=== PATIENT | female | born 1985 | race Caucasian/White ===

== ENCOUNTER 2023-06-14 16:27 | Inpatient (IN) | payer BC, SELFPAY ==
[2023-06-14] VITALS (14 sets, daily range): BP systolic 130–181; BP diastolic 73–132; BMI 21.0; BMI 20.3
[2023-06-14 12:58] LABS: Glucose - Point of Care 253 mg/dl (70-99)
--- NOTE | 2023-06-14 13:49 | ED.GENMED ---
History of Present Illness
General
Chief Complaint: Blood Sugar Problem
Source: patient
Exam Limitations: none
Time Seen by Provider: 06/14/23 13:40
Nursing documentation reviewed up to this point in time: agreed with
Travel History
Have you had any contact with someone who has COVID-19?: No
Do you have any symptoms of coronavirus? Fever > 100 degrees, chills, cough, shortness of breath, sore throat, loss of taste or smell, muscle aches, or headache?: No
History of Present Illness
History of Present Illness:
37-year-old female with a past medical history as documented notable for insulin-dependent diabetes with insulin pump who presents to the emergency room for evaluation of abdominal pain with nausea and vomiting�she says similar prior bouts of DKA.
She says the patient has been feeling unwell since early this morning. She says that she has been having profuse vomiting and constant nausea/epigastric discomfort. She says that the symptoms are similar to prior episodes of DKA; she says that her
blood sugars have been running high today�as high as 340 at home despite well-functioning insulin pump. She says she has associated shortness of breath. Denies any chest pain. She denies any diarrhea. She denies any recent fevers or chills. She
does note that her daughter has been sick recently with a viral syndrome.
Past History
Past History
ED Past Medical History: HTN, IDDM and Other (folate def., macrocytic anemia, hepatic steatosis)
ED Past Surgical History: Gynecological
Patient has exhibited threatening behavior?: No
PSI?: No
Social History
Tobacco: Non-smoker
Alcohol: Other (sober for two weeks)
Drug: None
Review of Systems
Review of Systems
All Other Systems: ROS reviewed and negative except as documented in HPI and ROS
Constitutional: Reports fatigue; Denies fever or chills
EENT: Denies sore throat or runny nose
Respiratory: Reports trouble breathing; Denies cough
Cardiac: Denies chest pain, diaphoresis or palpitations
ABD/GI: Reports abdominal pain, nausea and vomiting; Denies diarrhea
: Denies dysuria, frequency, flank pain or bleeding
Musculoskeletal: Denies neck pain or back pain
Neurological: Reports headache; Denies weakness or numbness
Phy Exam
Physical Exam
Physical Exam:
General: Awake, alert, oriented x3; no acute distress
Head: Normocephalic, atraumatic
Eyes: Conjunctiva normal, EOMI
Throat: Airway intact, mucous membranes dry
Neck: Trachea midline, supple without meningismus
Lungs: Clear to auscultation bilaterally, no wheezing, rales, rhonchi
Heart: Tachycardia with ostensibly regular rhythm, no murmurs, gallops, or rubs appreciated
Abd: Soft, non distended, very mild epigastric discomfort with no peritoneal signs or masses
Neuro: Cranial nerves grossly intact, speech fluid
Skin: no rash
Extremities: No edema in extremities, equal pulses in all extremities
Scores
Heart Failure Risk
Heart Failure Risk Score: Not Applicable
Heart Score for Chest Pain Patients
STEMI patient?: Not applicable
Withdrawal Assessment of Alcohol
Withdrawal Assessment Completed?: Not applicable
Course
Orders/Labs/Results
Orders:
Orders
06/14/23 12:56
EKG [Electrocardiogram (*1)] Urgent
Reason for Study: Shortness of Breath
EKG- Treatment ONCE
06/14/23 13:40
Test Result ONCE
06/14/23 13:41
Urinalysis Reflex To Culture Urgent
0.9% Sodium Chloride 1000 ml [Nss] 1,000 ml IV BOLUS
06/14/23 13:58
Lorazepam [Ativan] 1 mg IV NOW STA
06/14/23 13:59
0.9% Sodium Chloride 1000 ml [Nss] 1,000 ml IV BOLUS
06/14/23 14:05
Acetone [B-Hydroxybutyrate] Urgent
COVID-19 Antigen Urgent
Source: Nasal Swab
Complete Blood Count/With Diff Urgent
Comprehensive Metabolic Panel Urgent
HCG, Serum Qualitative Screen Urgent
Lipase Urgent
Magnesium Urgent
Venous Blood Gas Urgent
%Oxygen/Room Air: 100
Influenza A+B Rapid Molecular Urgent
ANGELA Source: Nasal Swab
Specimen Description:
06/14/23 14:51
0.9% Sodium Chloride 1000 ml [Nss] 1,000 ml IV BOLUS
Potassium Chloride [KCl] 40 meq 0.9% Sodium Chloride 250 ml [Nss] 250 ml IV NOW
Reg Insulin 100 Units/100 ml [Novolin R Insulin Infusion] 100 units in 100 ml IV NOW
06/14/23 14:52
Bedside Glucose- Treatment Q1H
IV Insert/Care/Rem.- Treatment PRN
06/14/23 14:57
Ethylene Glycol [S] Urgent
Methyl Alcohol (Methanol) [S] Urgent
06/14/23 14:58
Alcohol Urgent
Basic Metabolic Panel Q2H
Lactate Level [Lactic Acid] Urgent
Salicylate Urgent
TSH Reflex To Free T4 Urgent
06/14/23 15:00
Blood Culture Q30M
ANGELA Source: Blood/Venous
Specimen Description:
06/14/23 15:30
Blood Culture Q30M
ANGELA Source: Blood/Venous
Specimen Description:
06/14/23 16:00
KCl 20 Meq/D5.45%Sodchl 1000ML [D5/0.45%NSS with KCL 20 MEQ] 20 meq in 1,000 ml IV 125 mls/hr
06/14/23 17:00
Basic Metabolic Panel Q2H
06/14/23 19:00
Basic Metabolic Panel Q2H
Abnormal Lab Results
06/14/23 06/14/23
12:56 14:05
WBC 14.1 H 10^3/uL
(4.8-10.8)
RBC 5.60 H 10^6/uL
(4.20-5.40)
Hgb 16.9 H g/dL
(12.0-16.0)
Hct 49.8 H %
(37.0-47.0)
RDW 14.6 H %
(11.5-14.5)
Abs Immat Gran (auto) 0.1 H 10^3/uL
(0-0.05)
Absolute Neuts (auto) 12.2 H 10^3/uL
(1.4-6.5)
Absolute Lymphs (auto) 0.7 L 10^3/uL
(1.2-3.4)
Absolute Monos (auto) 1.1 H 10^3/uL
(0.1-0.6)
Neutrophils % 86.6 H %
(42.2-75.2)
Lymphocytes % 5.0 L %
(20.5-51.1)
VBG pCO2 32 L mmHg
(35-48)
VBG HCO3 17.3 L mmol/L
(22-27)
Sodium 134 L mmol/L
(135-145)
Chloride 90 L mmol/L
(98-107)
Carbon Dioxide 13 L* mmol/L
(22-30)
BUN 25 H mg/dl
(7-17)
Creatinine 1.7 H mg/dL
(0.6-1.0)
Glucose 217 H mg/dl
(70-99)
Calcium 11.6 H mg/dl
(8.4-10.2)
Total Bilirubin 1.4 H mg/dl
(0.2-1.3)
Alkaline Phosphatase 154 H U/L
(38-126)
Total Protein 9.3 H g/dl
(6.3-8.2)
Albumin 5.8 H g/dl
(3.5-5.0)
POC Glucose 253 H mg/dl
(70-99)
06/14/23 14:05
Vital Signs
Initial and Last Documented VS:
Initial Vital Signs
Temp Pulse Resp BP Pulse Ox
36.8 C 155 18 135/110 100
06/14/23 12:57 06/14/23 12:57 06/14/23 12:57 06/14/23 12:57 06/14/23 12:57
Last Documented Vital Signs
Temp Pulse Resp BP Pulse Ox
36.8 C 155 18 135/110 100
06/14/23 12:57 06/14/23 12:57 06/14/23 12:57 06/14/23 12:57 06/14/23 13:25
MDM/Problems Addressed
Differential Diagnosis Includes:
Gastroenteritis, gastritis, pancreatitis, cholelithiasis, cholecystitis, DKA
MDM/Problems Addressed:
37-year-old female presents for evaluation of epigastric discomfort associate with profuse nausea and vomiting today and elevated blood glucose at home that she is concerned for DKA as she has had similar symptoms with DKA in the past. She is
hypertensive, tachycardic; vital signs otherwise normal. Notably despite her reported dyspnea she fortunately has normal respiratory rate, normal oxygen saturation, normal work of breathing and clear lungs bilaterally. Exam as above. Accu-Chek [address] an IV send labs including CBC and CMP, lipase. Will check an hCG. Check VBG and beta hydroxybutyrate. Will check viral swabs. Check an EKG. Hold on abdominal imaging right now she has very minimal tenderness. Will provide
IV fluids and antiemetic. Monitor closely reassess after the above.
EKG reviewed patient has sinus tachycardia has prolonged QT interval at 550 will avoid QT prolonging agents here.
Labs reviewed: CBC shows leukocytosis to 14.1, elevated hemoglobin level suspect likely related to hemoconcentration. Her CMP shows anion gap metabolic acidosis with bicarb of 13 and anion gap of 31. Blood glucose only 217. VBG shows pH of 7.34.
Added on salicylate level, toxic alcohol levels, lactate level but given her identical presentation in December attributed to euglycemic DKA will plan to treat with insulin infusion; will supplement potassium and provide dextrose containing fluids.
Discussed with endocrinology who agrees with this plan. Discussed with hospitalist for admission for continued management.
Chronic conditions affecting care:
Insulin-dependent diabetes
Acute Exacerbation and/or Progression of Chronic Illness:
Acutely hypertensive
Acutely hyperglycemic in the setting of known diabetes
Acute Exacerbation and/or Progression of Chronic Illness: DM and HTN
*Pulse Oximetry
Patient hypoxic: no
*EKG
Interpreted by ED Provider?: Yes
Heart Rate: 147
Rate: tachycardiac
Rhythm: sinus and sinus tachycardia
Sevier: left axis deviation
Interval: long QT
QRS Pattern: normal QRS
Ischemia: non-specific ST changes
*Critical Care Note
Total Time (30-74mins, 75-104mins- exclusive of procedures): 33
comment:
Critical care statement: A total of 33 minutes of critical care time was provided for this patient. This includes management of unstable vital signs, evaluation of the patient at bedside, frequent reassessment, discussion with
consultants/hospitalist, and review of pertinent medical records. This time was separate from time utilized to perform any aforementioned documented procedures.
Data Reviewed
Review of Other/Old Records Reveals: Labs, Records and Discharge Summary
Source: patient
Further Testing Considered But Not Given:
Considered CT of the abdomen pelvis
Patient Management
Discussion with other providers: Hospitalist (Discussed with hospitalist) and Reference Assistant (Discussed with endocrinology)
Escalation/DeEscalation of care consider admission/obs:
Admission indicated
ED Attending Note
-
Portions of this chart may have been created with voice recognition software.� Occasional wrong word or��sound alike� substitutions may have occurred due to the inherent limitations of voice recognition software.
Discharge Plan
Departure
Patient Disposition: Admit
Date of Disposition: 06/14/23
Time of Disposition: 15:10
Admit to doctor: Mika
Presentation/result/management discussed w/ accepting MD/DO: Hospitalist
Discharge Problem:
Metabolic acidosis, increased anion gap, Hyperglycemia
Prescriptions:
No Action
folic acid 1 mg tablet
1 mg PO HS
Insulin Pump
1 dose SC .VIA PUMP
Patient Comments:
Pt uses Humalog 100unit/ml via pump
sertraline 100 mg tablet
100 mg PO HS
trazodone 100 mg tablet
200 mg PO HS
dextroamphetamine-amphetamine 15 mg tablet
15 mg PO BIDPRN PRN (Reason: work day attention)
Patient Comments:
01/17/2023: last filled 01/01/23, 60 tabs for 30 days from [facility]#[id number]
gabapentin 300 mg capsule
600 mg PO HS
spironolactone 50 mg tablet
100 mg PO HS
levothyroxine 50 mcg tablet
50 mcg PO HS
atorvastatin 10 mg Tablet
10 mg PO DAILY
pantoprazole 40 mg tablet,delayed release (DR/EC)
40 mg PO BID Qty: 60 1RF
nifedipine [Procardia XL] 30 mg tablet extended release 24hr
30 mg PO DAILY Qty: 30 0RF
Interventions
Interventions:
*Risk Screen - Suicide Last Done: 06/14/23 12:57
*General Assessment Last Done: 06/14/23 12:57
*Neglect/Abuse Screening Last Done: 06/14/23 12:57
ED- Fall Risk Assessment Last Done: 06/14/23 13:25
*ED COVID-19 Vaccine History Last Done: 06/14/23 12:57
ED- Neurological Assessment Last Done: 06/14/23 13:25
[2023-06-14] MEDS: NSS 1000 IV ×2 (13:57→14:35)
[2023-06-14 14:15] LABS: Venous Blood Gas B.E. -7.1 mmol/L (-4 to +4); Venous Blood Gas HCO3 17.3 mmol/L (22-27); Venous Blood Gas O2 Sat % 72.8 %; Venous Blood Gas pCO2 32 mmHg (35-48); Venous Blood Gas pH 7.34 (7.32-7.43); Venous Blood Gas pO2 43 mmHg (30-50)
[2023-06-14 14:16] LABS: % Basophils 0.3 % (0-2); % Immature Granulocytes 0.4 % (0-0.5); % Monocytes 7.7 % (1.7-9.3); % Neutrophils 86.6 % (42.2-75.2); Absolute Immature Granulocytes 0.1 10^3/uL (0-0.05); Absolute Lymphocytes 0.7 10^3/uL (1.2-3.4); Absolute Monocytes 1.1 10^3/uL (0.1-0.6); Absolute Neutrophils 12.2 10^3/uL (1.4-6.5); Hematocrit 49.8 % (37.0-47.0); Hemoglobin 16.9 g/dL (12.0-16.0); Mean Corp Hgb Conc. 33.9 g/dL (33.0-37.0); Mean Corpuscular Hgb 30.2 pg (27.0-31.0); Mean Corpuscular Volume 88.9 fL (81.0-99.0); Mean Platelet Volume 9.5 fL (7.4-10.4); Nucleated Red Blood Cells % 0 %; Platelet Count 223 10^3/uL (130-400); Red Cell Dist. Width 14.6 % (11.5-14.5); White Blood Cell Count 14.1 10^3/uL (4.8-10.8)
[2023-06-14 14:27] LABS: HCG, Serum Qualitative Screen Negative
[2023-06-14 14:32] LABS: COVID-19 Antigen Negative (Negative)
[2023-06-14] MEDS: ATIVAN 1 MG IV (14:33)
[2023-06-14 14:39] LABS: ALT (SGPT) 22 U/L (0-35); AST (SGOT) 34 U/L (14-36); Albumin 5.8 g/dl (3.5-5.0); Alkaline Phosphatase 154 U/L (38-126); Blood Urea Nitrogen 25 mg/dl (7-17); Calcium 11.6 mg/dl (8.4-10.2); Carbon Dioxide 13 mmol/L (22-30); Chloride 90 mmol/L (98-107); Glucose 217 mg/dl (70-99); Lipase 281 U/L (23-300); Potassium 3.7 mmol/L (3.5-5.1); Sodium 134 mmol/L (135-145); Total Bilirubin 1.4 mg/dl (0.2-1.3); Total Protein 9.3 g/dl (6.3-8.2); eGFR 39.86
[2023-06-14] MEDS: D5/0.45%NSS with KCL 20 MEQ 1000 IV (15:32)
[2023-06-14] MEDS: NOVOLIN R INSULIN INFUSION 100 IV (15:52)
[2023-06-14 16:01] LABS: Glucose - Point of Care 171 mg/dl (70-99)
[2023-06-14 16:03] LABS: Lactic Acid 1.2 mmol/L (0.7-2.0)
[2023-06-14 16:08] LABS: Blood Urea Nitrogen 25 mg/dl (7-17); Calcium 11.5 mg/dl (8.4-10.2); Carbon Dioxide 13 mmol/L (22-30); Chloride 91 mmol/L (98-107); Estimated Creatinine Clearance 54 ml/min; Glucose 178 mg/dl (70-99); Salicylate < 1.0 mg/dl (2.0-20.0); Sodium 137 mmol/L (135-145); eGFR 50.32
[2023-06-14 16:09] LABS: Alcohol None Detected
--- NOTE | 2023-06-14 16:30 | HPS.HSE ---
Family Physician
-
Family Physician: CITLALI Gomez
Chief Complaint
-
DKA
History of Present Illness
Patient is a 37-year-old female with type 1 diabetes mellitus who has insulin pump who presented with complaints of 'I think I am in DKA'. Patient states that her usual triggers from her daughter is when her daughter gets sick, the patient gets
sick. Patient complains of nausea, vomiting, headache, inability to sleep, lethargy, and shortness of breath. She also is complaining of chest and throat pain which she describes as it being from vomiting. Workup in the emergency department finds
her to have an increased anion gap with metabolic acidosis but essentially normal blood sugar. Patient is being admitted to the intensive care unit.
Medical History
Past Medical History
Past Medical History: Reports Other
Additional Past Medical History:
Type 1 diabetes mellitus with insulin pump
Essential hypertension
Peripheral neuropathy
Hyperlipidemia
Chronic diastolic congestive heart failure
Hepatic steatosis with early cirrhosis
Previous history of alcohol disorder
Hypothyroidism
History of connective tissue disorder
Gastroesophageal reflux disease
Depression
Past Surgical History: Reports Other
Additional Past Surgical History:
Right femur neck fracture status post gamma nail approximately 2022
Social History
Tobacco: Non-smoker
Alcohol: Occasional
Drug: None
Living: With Family
Family History
Family History: Other (Mother has autoimmune disorder--father has A-fib)
Allergies / Home Medications
Allergies reflects when Allergies were last updated in [employer].
Home Medications with original date entered in [employer]
Allergy/Medication List:
Allergies
Allergy/AdvReac Type Severity Reaction Status Date / Time
No Known Allergies Allergy Verified 01/17/23 13:30
Home Medications
folic acid 1 mg tablet 1 mg PO HS Supplement 04/06/22
dextroamphetamine-amphetamine 15 mg tablet 15 mg PO TIDPRN PRN work day attention 01/17/23
gabapentin 300 mg capsule 300 mg PO TID Pain 01/17/23
levothyroxine 50 mcg tablet 50 mcg PO HS Thyroid 01/17/23
sertraline 100 mg tablet 100 mg PO HS Thyroid 01/17/23
spironolactone 50 mg tablet 50 mg PO BID Thyroid 01/17/23
atorvastatin 10 mg tablet 10 mg PO HS High Cholesterol 01/20/23
Patient's Own Insulin 0 unit SC .VIA PUMP 06/14/23
clonidine HCl 0.2 mg tablet 0.2 mg PO HS 06/14/23
gabapentin 100 mg capsule 200 mg PO HS 06/14/23
melatonin 10 mg tablet 10 mg PO HS 06/14/23
pantoprazole 40 mg tablet,delayed release 40 mg PO DAILYPRN PRN gerd 06/14/23
Review of Systems
-
History Source: Patient
A 12 point ROS was completed and negative except as noted: Yes
Constitutional: Reports Sleep Disturbance; Denies Fever or Chills
EENT: Reports Sore Throat
Respiratory: Reports Trouble Breathing
Cardiac: Reports Chest Pain
Abdomen/GI: Reports Nausea and Vomiting; Denies Abdominal Pain, Diarrhea or Constipated
: Denies Dysuria or Frequency
Musculoskeletal: Reports No Symptoms
Skin: Reports No Symptoms
Neurological: Reports No Symptoms
Endocrine: Reports No Symptoms
Hematologic/Lymphatic: Reports No Symptoms
Psych: Reports No Symptoms
Physical Exam
Vital Signs
Vital Signs
Temp Pulse Resp BP Pulse Ox
98.2 F 128 19 161/132 100
06/14/23 12:57 06/14/23 16:00 06/14/23 16:00 06/14/23 16:00 06/14/23 16:00
Physical Exam
General: Well Developed, Well Nourished and No Apparent Distress
HEENT: NormoCephalic, Anicteric, Atraumatic and Other (Flushed cheeks)
Respiratory: Clear; No Wheezes, Rales, Rhonchi or Crackles
Cardiac: S1/S2, Regular Rhythm and Tachycardia; No Murmur
GI: Soft, Non Tender, Non Distended and Normal Bowel Sounds
Musculoskeletal: No Clubbing, No Cyanosis and No Edema
Skin: Warm and Dry
Neuro: Awake and Alert
Psych: Calm
Laboratory Results
-
06/14/23 14:05
Laboratory Results
Lactic Acid 1.2 mmol/L (0.7-2.0) 06/14/23 15:18
Total Bilirubin 1.4 mg/dl (0.2-1.3) H 06/14/23 14:05
AST 34 U/L (14-36) 06/14/23 14:05
ALT 22 U/L (0-35) 06/14/23 14:05
Alkaline Phosphatase 154 U/L (38-126) H 06/14/23 14:05
Lipase 281 U/L (23-300) 06/14/23 14:05
Impression/Plan
-
pt is a 37 year old female
metabolic acidosis -- likely DKA--beta hydroxybutyrate pending--ADMIT to ICU--consult deli worker--will need insulin drip and IV fluids with dextrose--follow-up potassium and magnesium and replete as needed--Q2H BMPs and Q1H Accu-Cheks--adjust IV
fluids with dextrose as needed--once anion gap is closed, will consult diabetic nurse practitioners to help transition back to her insulin drip--will check for infection, check blood and urine culture--venous pH is 7.34--salicylate is less than 1,
alcohol is not detected--ethylene glycol, methyl alcohol and beta hydroxybutyrate are pending (looking for other causes of acidosis)
Hypothyroidism--continue levothyroxine
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
Hyperlipidemia--continue atorvastatin
Sleep disturbance--patient states she takes clonidine for sleep--hold melatonin
History of diastolic congestive heart failure--appears dry on exam--would continue IV fluid--adjust as needed--hold spironolactone
History of depression--hold sertraline until patient taking p.o.
GERD--continue IV Protonix--hold oral
DVT prophylaxis--Lovenox
CODE STATUS--full code
[2023-06-14 16:35] LABS: TSH Reflex To Free T4 0.53 uIU/ml (0.47-4.68)
[2023-06-14 16:43] LABS: B-Hydroxybutyrate > 9.0 mmol/L (0.02-0.27)
[2023-06-14 17:17] LABS: Glucose - Point of Care 145 mg/dl (70-99)
--- NOTE | 2023-06-14 18:07 | CON.INTV ---
Consultation
Consultation Request
Date/Time Consultation Requested: 06/14/2023 - 163
Date/Time Consultation Performed: 06/14/2023 - 1801
Requesting Provider: Dr. Brennan
Performing Provider: Dr. Brown
Reason for Consultation: DKA
Medical History
-
Chief Complaint: Vomiting/SOB
History of Present Illness:
37-year-old female former tobacco smoker with DM type I on continuous SQ insulin pump, hyperlipidemia, history of HFpEF, GERD, depression and hypothyroidism who presents with nausea/vomiting and shortness of breath. She came to the ER and stated
that she thinks she is in DKA. Blood sugar 253 in triage. Patient tachycardic in the ER to 133, BP 161/132, tachypneic to 23 breaths/min, afebrile to 98.2 �F, and SpO2 100% on room air. Labs showed pH 7.34, pCO2 32, metabolic acidosis with serum
bicarbonate of 13 with increased AG of 33, creatinine 1.4, lactate 1.2, glucose 178, total bilirubin 1.4, Hb 16.9, WBC 14.1, and COVID antigen negative. Beta hydroxybutyrate was >9 and alcohol level was negative. IV fluids were started in the ER
and she was given 2 L of NS 0.9%, also given Ativan 1 mg, started on D5 half-normal saline with 20 mEq of potassium and also started on insulin drip. Given concern for DKA she was transferred to the ICU for admission and link knitting machine operator services now
consulted for additional management/recommendations.
When I saw the patient she was in bed in no acute distress. She says that she recently felt sick because she caught a bug that her daughter had. Her symptoms initially started on Tuesday with nausea/vomiting and sore throat. She then developed
shortness of breath and not related to come here to the hospital. She denies a cough, fevers or chills. At the time of my evaluation, her heart rate was 147, respiratory rate 23, BP 157/101 and saturating 100% on room air. She denies feeling
anxious or in pain. She has intermittent nausea but is not currently feeling nauseous. She denies any recent travel or long car rides. She says that she drinks alcohol during the weekends and has never had alcohol withdrawal symptoms before.
Currently denies headache, chest pain, shortness of breath, abdominal pain, diarrhea, fevers or chills.
PMHx: DM type I on insulin pump, hypertension, peripheral neuropathy, hyperlipidemia, HFpEF, hepatic steatosis history of alcohol abuse, hypothyroidism, GERD, depression, former tobacco use disorder
PSHx: Right femur neck fracture s/p gamma nail (2022), section x2
Past Medical History
Past Medical History: Other (Above as per HPI)
Past Surgical History: Other (Above as per HPI)
Social History
Tobacco: Former Smoker
Alcohol: Occasional
Drug: None
Living: With Family
Family History
Family History: Other (Father: A-fib; mother: Autoimmune disorder (unknown which specific disorder))
Allergies / Home Medications
Allergies
Allergy/AdvReac Type Severity Reaction Status Date / Time
No Known Allergies Allergy Verified 01/17/23 13:30
Home Medications
Medication Instructions Recorded Confirmed Last Taken Type
folic acid 1 mg tablet 1 mg PO HS Supplement 04/06/22 06/14/23 3 Days Ago History
~06/11/23
dextroamphetamine-amphetamine 15 15 mg PO TIDPRN PRN work day 01/17/23 06/14/23 1 Week Ago History
mg tablet attention ~06/07/23
gabapentin 300 mg capsule 300 mg PO TID Pain 01/17/23 06/14/23 3 Days Ago History
~06/11/23
levothyroxine 50 mcg tablet 50 mcg PO HS Thyroid 01/17/23 06/14/23 3 Days Ago History
~06/11/23
sertraline 100 mg tablet 100 mg PO HS Thyroid 01/17/23 06/14/23 3 Days Ago History
~06/11/23
spironolactone 50 mg tablet 50 mg PO BID Thyroid 01/17/23 06/14/23 3 Days Ago History
~06/11/23
atorvastatin 10 mg tablet 10 mg PO HS High Cholesterol 01/20/23 06/14/23 3 Days Ago History
~06/11/23
Patient's Own Insulin 0 unit SC .VIA PUMP 06/14/23 06/14/23 06/14/23 History
clonidine HCl 0.2 mg tablet 0.2 mg PO HS 06/14/23 06/14/23 3 Days Ago History
~06/11/23
gabapentin 100 mg capsule 200 mg PO HS 06/14/23 06/14/23 3 Days Ago History
~06/11/23
melatonin 10 mg tablet 10 mg PO HS 06/14/23 06/14/23 3 Days Ago History
~06/11/23
pantoprazole 40 mg tablet,delayed 40 mg PO DAILYPRN PRN gerd 06/14/23 06/14/23 06/14/23 History
release
Review of Systems
-
History Source: Patient
All other systems: Negative unless noted (12 point ROS performed and is negative unless mentioned above.)
Vitals / Labs / Diagnostic Testing
Vital Signs
Temp Pulse Resp BP Pulse Ox
99.7 F 131 24 181/101 99
06/14/23 17:08 06/14/23 18:30 06/14/23 18:30 06/14/23 18:30 06/14/23 18:43
Lab Data
06/14/23 14:05
Microbiology
06/14/23 14:05 Nasal Swab Influenza Types A & B (MIS) - Final
Negative for Influenza A & B, NAAT
Negative results must be combined with clinical observations
and patient history.
Nucleic Acid Amplification test (NAAT)performed on the
[employer] platform.
Diagnostic Testing:
Physical Exam
-
HEENT: Normocephalic and Anicteric
Cardiovascular: Peripheral Edema (n) and Other (Tachycardic)
Respiratory: Wheeze (negative), Rales (left lower lung field), Rhonchi (negative) and Accessory Resp Muscle Use (negative)
GI: Soft, Non Distended, Non Tender and Normal Bowel Sounds
Neurology: AO x 3
Skin: Warm and Dry
General: Comfortable and Chills (negative)
Assessment
-
Assessment: 37-year-old female former tobacco smoker with DM type I on continuous SQ insulin pump, hyperlipidemia, history of HFpEF, GERD, depression and hypothyroidism who presents with nausea/vomiting and shortness of breath. She came to the ER
and stated that she thinks she is in DKA. Blood sugar 253 in triage. Patient tachycardic in the ER to 133, BP 161/132, tachypneic to 23 breaths/min, afebrile to 98.2 �F, and SpO2 100% on room air. Labs showed pH 7.34, pCO2 32, metabolic acidosis
with serum bicarbonate of 13 with increased AG of 33, creatinine 1.4, lactate 1.2, glucose 178, total bilirubin 1.4, Hb 16.9, WBC 14.1, and COVID antigen negative. Beta hydroxybutyrate was >9 and alcohol level was negative. IV fluids were started
in the ER and she was given 2 L of NS 0.9%, also given Ativan 1 mg, started on D5 half-normal saline with 20 mEq of potassium and also started on insulin drip. Given concern for DKA she was transferred to the ICU for admission and link knitting machine operator
services now consulted for additional management/recommendations.
Chronic medical conditions TOWERMAN: DM type I on insulin pump, hypertension, peripheral neuropathy, hyperlipidemia, HFpEF, hepatic steatosis history of alcohol abuse, hypothyroidism, GERD, depression, former tobacco use disorder
Impression:
#DM type I complicated by DKA without coma - only mild hyperglycemia and perhaps this is due to the patient's insulin pump (was de-activated today) - DKA likely triggered by recent viral illness with gastritis
#Metabolic acidosis with increased anion gap due to above
#Acute kidney injury - due to osmotic diuresis with DKA and pre-renal azotemia
#Hypochloremic, hyponatremia - due to reduced PO intake in setting of DKA
#Leukocytosis
#Transaminitis with elevated ALP and total bilirubin
#Relative polycythemia likely due to hemoconcentration
#Hx of alcohol abuse
Plan:
- Continue insulin infusion with q1hr POCT glucose and serial labs with q4hr BMP, Mg and PO4
- Avoid hypoglycemia; continue D5-NS 0.9% with KCl at 125-150mL/hr while on insulin gtt and BG<300mg/dL
- Goal BG 140-180mg/dL
- Replete K>4, Mg>2, PO4>3
- Maintain MAP>65
- Anti-emetics as needed; monitor Qtc if giving zofran or reglan (QTc was 550ms today - hence would give compazine instead)
- Thiamine and folate; no current signs of EtOH withdrawal, hence I will hold off on ordering MSAS at this time
- Check serum osmolarity to check osmolar gap, follow up methanol and ethylene glycol levels
- Maintain SpO2 >90-94% with supplemental O2 if needed
- Trend leukocytosis; check UA with reflex to Cx; if patient spikes fever then check blood Cx + CXR and start broad spectrum Abx
- prn nebulized bronchodilators - pt not currently bronchospastic
- Encourage incentive spirometer 10x/hr for at least 4 hrs a day
- continue PPI (home med)
- stress ulcer ppx: n/a
- DVT ppx: LMWH (if Cr worsens then change to HSQ)
Critical care statement: A total of 40 minutes of critical care time was provided for this patient today. This includes management of unstable vital signs, evaluation of the patient at bedside, reviewing the patient's pertinent medical records
including radiographs, microbiology, laboratory evaluations, and discussion with primary team, consultants, pharmacy, nutrition, physical therapy, case management, charge nurse, critical care nursing, and respiratory therapy.
[2023-06-14 18:34] LABS: Glucose - Point of Care 151 mg/dl (70-99)
[2023-06-14] MEDS: LOVENOX 40 MG SC (18:37)
[2023-06-14] MEDS: D5/0.9% with KCL 40 MEQ 1000 IV (18:37)
--- NOTE | 2023-06-14 18:45 | PTCARENOTE ---
165-Received pt from ED via stretcher.Awake and alert.speech is appropriate.Gait is steady.c/o throat and upper chest pain r/t emesis.ST noted.IVF and Insulin gtt infusing.Decreased breath sounds bibasilar.POX 100% on RA.No nausea or
emesis.Tolerating ice chips.Has not voided at this time.Blood cultures and BMP obtained as ordered.Plan of care discussed with pt.
[2023-06-14 18:56] LABS: Blood Urea Nitrogen 23 mg/dl (7-17); Calcium 10.3 mg/dl (8.4-10.2); Carbon Dioxide 18 mmol/L (22-30); Chloride 95 mmol/L (98-107); Estimated Creatinine Clearance 66 ml/min; Glucose 169 mg/dl (70-99); Potassium 3.3 mmol/L (3.5-5.1); Sodium 134 mmol/L (135-145); eGFR > 60.00
[2023-06-14 19:49] LABS: Glucose - Point of Care 266 mg/dl (70-99)
--- NOTE | 2023-06-14 20:00 | PTCARENOTE ---
rec`d pt at 1900 laying bed. AAOx3. flat affect. insulin gtt at 2. ST on monitor. left AC 18 and left FA 18 flushed and patent. HR 130s. BP systolic 150s. RA, satting at 98%. urinates walking to the bathroom. pt ambulates self. call wallace in reach,
safe environment maintained.
[2023-06-14 20:19] LABS: Glucose - Point of Care 213 mg/dl (70-99)
[2023-06-14] MEDS: KCL 270 MEQ IV (20:33)
[2023-06-14 20:52] LABS: Blood Urea Nitrogen 22 mg/dl (7-17); Carbon Dioxide 12 mmol/L (22-30); Chloride 95 mmol/L (98-107); Estimated Creatinine Clearance 73 ml/min; Glucose 230 mg/dl (70-99); Potassium 3.6 mmol/L (3.5-5.1); Sodium 134 mmol/L (135-145); eGFR > 60.00
[2023-06-14] MEDS: MELATONIN 10 MG PO (21:08)
[2023-06-14] MEDS: CATAPRES 0.200000000000000011 MG PO (21:08)
[2023-06-14 21:22] LABS: Glucose - Point of Care 251 mg/dl (70-99)
[2023-06-14] MEDS: COMPAZINE 10 MG IV (21:48)
[2023-06-14] MEDS: TYLENOL 650 MG PO (21:49)
[2023-06-14] MEDS: THIAMINE INJECTION 100 MG IV (21:49)
[2023-06-14 22:21] LABS: Glucose - Point of Care 245 mg/dl (70-99)
[2023-06-14 23:20] LABS: Glucose - Point of Care 204 mg/dl (70-99)
[2023-06-15] VITALS (21 sets, daily range): BP systolic 83–132; BP diastolic 53–89; BMI 20.8
--- NOTE | 2023-06-15 | PTCARENOTE ---
pt reassessed. no changes in pt assessment. call wallace in reach.
[2023-06-15] MEDS: D5/0.45%NSS with KCL 20 MEQ 1000 IV ×2 (00:02→08:05)
[2023-06-15 00:15] LABS: Glucose - Point of Care 207 mg/dl (70-99)
[2023-06-15 00:36] LABS: Blood Urea Nitrogen 25 mg/dl (7-17); Calcium 9.2 mg/dl (8.4-10.2); Carbon Dioxide 19 mmol/L (22-30); Chloride 108 mmol/L (98-107); Estimated Creatinine Clearance 104 ml/min; Glucose 210 mg/dl (70-99); Magnesium 1.7 mg/dl (1.6-2.3); Phosphorus 1.5 mg/dl (2.5-4.5); Sodium 136 mmol/L (135-145); eGFR > 60.00
[2023-06-15 00:47] LABS: Osmolality Serum 308 mOsm/kg (275-300)
[2023-06-15 03:23] LABS: Glucose - Point of Care 236 mg/dl (70-99)
[2023-06-15 04:00] LABS: % Basophils 0.4 % (0-2); % Eosinophils 0.2 % (0-6); % Immature Granulocytes 0.3 % (0-0.5); % Lymphocytes 23.1 % (20.5-51.1); Absolute Lymphocytes 2.3 10^3/uL (1.2-3.4); Absolute Monocytes 1.1 10^3/uL (0.1-0.6); Absolute Neutrophils 6.4 10^3/uL (1.4-6.5); Hematocrit 30.7 % (37.0-47.0); Hemoglobin 10.7 g/dL (12.0-16.0); Mean Corp Hgb Conc. 34.9 g/dL (33.0-37.0); Mean Corpuscular Hgb 30.7 pg (27.0-31.0); Mean Corpuscular Volume 88.2 fL (81.0-99.0); Mean Platelet Volume 9.6 fL (7.4-10.4); Nucleated Red Blood Cells % 0 %; Platelet Count 171 10^3/uL (130-400); Red Blood Cell Count 3.48 10^6/uL (4.20-5.40); White Blood Cell Count 9.8 10^3/uL (4.8-10.8)
--- NOTE | 2023-06-15 04:00 | PTCARENOTE ---
pt reassessed. no changes in pt assessment. call wallace in reach.
[2023-06-15 04:16] LABS: ALT (SGPT) 15 U/L (0-35); AST (SGOT) 23 U/L (14-36); Albumin 2.8 g/dl (3.5-5.0); Alkaline Phosphatase 75 U/L (38-126); Blood Urea Nitrogen 30 mg/dl (7-17); Carbon Dioxide 22 mmol/L (22-30); Chloride 110 mmol/L (98-107); Direct Bilirubin 0.1 mg/dl (0.0-0.4); Estimated Creatinine Clearance 121 ml/min; GGTP 177 U/L (12-43); Glucose 237 mg/dl (70-99); Magnesium 1.6 mg/dl (1.6-2.3); Phosphorus 1.7 mg/dl (2.5-4.5); Potassium 4.7 mmol/L (3.5-5.1); Sodium 134 mmol/L (135-145); Total Bilirubin 0.8 mg/dl (0.2-1.3); Total Protein 5.3 g/dl (6.3-8.2); eGFR > 60.00
[2023-06-15] MEDS: LR 1000 IV (04:18)
[2023-06-15 04:27] LABS: Glucose - Point of Care 233 mg/dl (70-99)
--- NOTE | 2023-06-15 04:28 | DOWNTIME ---
There was a [employer] Downtime on 06/15/2023 from 0100 to 06/15/2023 at 0322. Downtime documentation of patient's care, including medication administrations, has been reconciled in the electronic record per guidelines. Refer to the
patient's paper chart under the miscellaneous tab to see printed paper medication records and downtime forms.
[2023-06-15 05:18] LABS: Glucose - Point of Care 101 mg/dl (70-99)
[2023-06-15 06:12] LABS: Glucose - Point of Care 99 mg/dl (70-99)
[2023-06-15 07:32] LABS: Glucose - Point of Care 211 mg/dl (70-99)
[2023-06-15] MEDS: NSS (PRESERVATIVE FREE) 10 ML IV (08:06)
[2023-06-15] MEDS: VITAMIN B1 100 MG PO (08:06)
[2023-06-15] MEDS: PROTONIX IV 40 MG IV (08:06)
[2023-06-15] MEDS: FOLVITE 1 MG PO (08:06)
[2023-06-15 08:26] LABS: Glucose - Point of Care 236 mg/dl (70-99)
[2023-06-15] MEDS: TYLENOL 650 MG PO ×2 (08:26→13:33)
--- NOTE | 2023-06-15 08:27 | W.PN.INTV ---
Today's Communication / Plan
Recommendations
Patient has been transitioned off insulin drip and her SQ insulin pump has been resumed
Diabetic SOFTWARE SUPPORT TECHNICIAN following as well
Goal BG 140-180 mg/dL
Follow-up urine culture/blood cultures
If patient spikes fever then check CXR and start broad-spectrum antibiotics
Up OOB as tolerated
Incentive spirometer
Transfer out of ICU to telemetry. Sheetmetal Worker/Pulmonary service will now sign off. Please re-consult if there are any additional questions/concerns, or if patient's respiratory status deteriorates.
Assessment
-
Assessment: 37-year-old female former tobacco smoker with DM type I on continuous SQ insulin pump, hyperlipidemia, history of HFpEF, GERD, depression and hypothyroidism who presents with nausea/vomiting and shortness of breath. She came to the ER
and stated that she thinks she is in DKA. Blood sugar 253 in triage. Patient tachycardic in the ER to 133, BP 161/132, tachypneic to 23 breaths/min, afebrile to 98.2 �F, and SpO2 100% on room air. Labs showed pH 7.34, pCO2 32, metabolic acidosis
with serum bicarbonate of 13 with increased AG of 33, creatinine 1.4, lactate 1.2, glucose 178, total bilirubin 1.4, Hb 16.9, WBC 14.1, and COVID antigen negative. Beta hydroxybutyrate was >9 and alcohol level was negative. IV fluids were started
in the ER and she was given 2 L of NS 0.9%, also given Ativan 1 mg, started on D5 half-normal saline with 20 mEq of potassium and also started on insulin drip. Given concern for DKA she was transferred to the ICU for admission and bung sewer
services now consulted for additional management/recommendations.
Chronic medical conditions [employer]: DM type I on insulin pump, hypertension, peripheral neuropathy, hyperlipidemia, HFpEF, hepatic steatosis history of alcohol abuse, hypothyroidism, GERD, depression, former tobacco use disorder
Impression:
#DM type I complicated by DKA without coma (DKA now resolved) - mild hyperglycemia during DKA likely due to the patient's insulin pump (was de-activated yesterday after arrival to hospital) - DKA likely triggered by recent viral illness with
gastritis
#Metabolic acidosis with increased anion gap due to above - resolved
#Acute kidney injury - due to osmotic diuresis with DKA and pre-renal azotemia - improving
#Hypochloremic, hyponatremia - due to reduced PO intake in setting of DKA - hyponatremia stable
#Leukocytosis - resolved
#Transaminitis with elevated ALP and total bilirubin - resolved
#Relative polycythemia likely due to hemoconcentration - resolved, however pt is now anemic
#Hx of alcohol abuse
Plan:
- Diabetic SOFTWARE SUPPORT TECHNICIAN has resumed patient's SQ insulin pump, and pt has been weaned off insulin gtt and D5 1/2 NS + KCl infusion
- Goal BG 140-180mg/dL
- Patient wants to manage her sugars while she remains hospitalized and she can do this with her insulin pump; I offered to have us control it with our POCT glucometers and our own insulin, however the patient just reloaded her insulin into her pump
and that is very expensive and limited, so she would like to manage this herself while she remains hospitalized. Diabetic SOFTWARE SUPPORT TECHNICIAN will continue to follow along to assure that patient's sugars are controlled.
- Replete K>4, Mg>2, PO4>3
- Maintain MAP>65
- Anti-emetics as needed; monitor QTc if giving zofran or reglan (QTc was 550ms yesterday - QTC is 420ms today)
- Thiamine and folate; no current signs of EtOH withdrawal, hence I will hold off on ordering MSAS at this time
- Serum osmolarity is 308 --> but this is likely due to hyperglycemia. Both methanol and ethylene glycol levels are negative
- Maintain SpO2 >90-94% with supplemental O2 if needed
- Trend leukocytosis; follow up urine Cx and blood Cx X4; if patient spikes fever then check CXR and start broad spectrum Abx
- prn nebulized bronchodilators - pt not currently bronchospastic
- Encourage incentive spirometer 10x/hr for at least 4 hrs a day
- continue PPI (home med)
- stress ulcer ppx: n/a
- DVT ppx: LMWH 40mg SQ qPM
Dispo: Transfer out of ICU to telemetry. Sheetmetal Worker/Pulmonary service will now sign off. Thank you for allowing us to be involved in the care of this patient. Please re-consult if there are any additional questions/concerns, or if patient's
respiratory status deteriorates.
Total time spent today was 41 minutes for this encounter. Time includes reviewing laboratory test/imaging results, reviewing pertinent medical records, obtaining and reviewing medical history, performing an appropriate exam, ordering medications,
tests and procedures. Time also includes documentation of this encounter, coordinating patient care and communicating with other healthcare professionals. Total time does not include separately billed tests performed on this date of service.
Subjective Dataa
Subjective Data
Date of Service:
Date of Service: June 15, 2023
Chief Complaint: Sheetmetal Worker Follow Up
Subjective:
Patient seen this morning. She is feeling much better today. Heart rate 104 and she is breathing comfortably on room air with SpO2 9 9%. BP 109/82.
Diabetic SOFTWARE SUPPORT TECHNICIAN saw patient and patient was transitioned off the insulin drip after subcutaneous pump was resumed. When I saw the patient the insulin pump was infusing at 1.15 units/hour. Her sugars however are still in the mid 200s but her pump has
the ability to adjust pre-prandial insulin given to compensate, and the patient is fully capable and willing to use her own insulin pump to control her sugars while she remains hospitalized. Patient currently denies headache, chest pain, shortness
of breath, abdominal pain, fevers or chills.
Review of Systems
General: Other (12 point ROS performed and is negative unless mentioned above.)
Objective Data
Data Reviewed
Vital Signs / I&O / Oxygen:
Vital Signs
Temp Pulse Resp BP Pulse Ox
98.2 F 86 19 98/67 99
06/15/23 15:00 06/15/23 15:00 06/15/23 08:00 06/15/23 11:00 06/15/23 08:30
Intake and Output
06/14/23 06/15/23 06/16/23
06:59 06:59 06:59
Intake Total 1928.0 / 1928.0 1008 / 1008
Balance 1928.0 / 1928.0 1008 / 1008
SaO2 99
Physical Exam
General: Comfortable
HEENT: Normocephalic and Anicteric
Cardiovascular: S1-S2
Respiratory: Clear, Wheeze (negative), Crackles (negative), Rhonchi (negative) and Accessory Resp Muscle Use (negative)
GI: Soft, Non Distended and Non Tender
Neurology: AO x 3
Skin: Warm, Dry and Other (Insulin SQ pump seen in the patient's left lower quadrant of her abdomen)
Labs/Micro/Reports
Lab Data
06/15/23 06:00
06/15/23 16:00
Microbiology
06/14/23 15:18 Blood/Venous Blood Culture - Preliminary
No Growth in 24 hours- Final report to follow
06/14/23 15:18 Blood/Venous Blood Culture - Preliminary
No Growth in 24 hours- Final report to follow
06/14/23 14:05 Nasal Swab Influenza Types A & B (MIS) - Final
Negative for Influenza A & B, NAAT
Negative results must be combined with clinical observations
and patient history.
Nucleic Acid Amplification test (NAAT)performed on the
[employer] platform.
--- NOTE | 2023-06-15 08:30 | PTCARENOTE ---
Assumed care of pt at 0715 following shift report. Pt asleep and woken to name for assessment and care. Pt c/o chest discomfort 'from all the vomiting'.Tylenol given at pt's request. Pt declining offer to complete AM hygiene at this time. Insulin
gtt and D5 1/2NS w/ 20meq KCL infusing per ordered protocol. Pt remains NPO. Call wallace w/in pt reach and safe environment maintained.
[2023-06-15 08:56] LABS: Glucose - Point of Care 188 mg/dl (70-99)
[2023-06-15 08:56] LABS: Glucose - Point of Care 196 mg/dl (70-99)
[2023-06-15 09:17] LABS: Glucose - Point of Care 214 mg/dl (70-99)
[2023-06-15 09:59] LABS: Blood Urea Nitrogen 29 mg/dl (7-17); Calcium 8.5 mg/dl (8.4-10.2); Carbon Dioxide 22 mmol/L (22-30); Chloride 104 mmol/L (98-107); Estimated Creatinine Clearance 124 ml/min; Glucose 233 mg/dl (70-99); Magnesium 1.6 mg/dl (1.6-2.3); Phosphorus 1.7 mg/dl (2.5-4.5); Potassium 4.2 mmol/L (3.5-5.1); Sodium 134 mmol/L (135-145); eGFR > 60.00
--- NOTE | 2023-06-15 10:24 | W.PN.HOSP.TC ---
Today's Communication/Plan
-
anticipate transition back to insulin pump today
if so, transfer out of ICU
d/c planning for tomorrow
Assessment / Plan
Assessment / Plan
pt is a 37 year old female
metabolic acidosis -- likely DKA--beta hydroxybutyrate high--apprec jewel hole rough opener--will need insulin drip and IV fluids with dextrose----adjusted IV fluids with dextrose gap closed x 2-- consult diabetic nurse practitioners to help transition back to
her insulin pump--will check for infection, check blood and urine culture--salicylate is less than 1, alcohol is not detected
Hypothyroidism--continue levothyroxine
Type 2 diabetes mellitus with complications of neuropathy and previous admissions for DKA--since patient is n.p.o., restart gabapentin--holding insulin pump, await input from [facility] DM
Hyperlipidemia--continue atorvastatin
Sleep disturbance--patient states she takes clonidine for sleep--hold melatonin
History of diastolic congestive heart failure--appears dry on exam--would continue IV fluid--adjust as needed--hold spironolactone
History of depression--hold sertraline until patient taking p.o.
GERD--continue IV Protonix--hold oral
DVT prophylaxis--Lovenox
CODE STATUS--full code
Anticipated Discharge: 24 - 48 hours
Subjective/Interval History
-
Date of Service: June 15, 2023
pt doing better
Objective Data
-
Labs:
Laboratory Results
06/15/23 06/15/23 06/15/23
00:12 03:44 06:00
WBC 9.8 Cancelled
Hgb 10.7 L D Cancelled
Hct 30.7 L Cancelled
Plt Count 171 D Cancelled
Sodium 136 134 L
Potassium 5.0 D 4.7
Chloride 108 H 110 H
Carbon Dioxide 19 L 22
BUN 25 H 30 H
Creatinine 0.7 0.6
Glucose 210 H 237 H
Calcium 9.2 9.0
Total Bilirubin 0.8
AST 23
ALT 15
Alkaline Phosphatase 75
06/15/23 06/15/23 06/15/23
08:15 12:00 16:00
WBC
Hgb
Hct
Plt Count
Sodium 134 L Pending Pending
Potassium 4.2 Pending Pending
Chloride 104 Pending Pending
Carbon Dioxide 22 Pending Pending
BUN 29 H Pending Pending
Creatinine 0.5 L Pending Pending
Glucose 233 H Pending Pending
Calcium 8.5 Pending Pending
Total Bilirubin
AST
ALT
Alkaline Phosphatase
Vital Signs:
max temp for 24 hours
06/15/23
04:00
Temp 99.6 F
Vital Signs
Temp Pulse Resp BP Pulse Ox
98.5 F 117 24 93/74 98
06/15/23 07:27 06/15/23 05:45 06/15/23 05:45 06/15/23 05:30 06/14/23 20:00
I&O
06/14/23 06/15/23 06/16/23
06:59 06:59 06:59
Intake Total 1927.0 / 1927.0 512 / 512
Balance 8.0 / 192.0 512 / 512
Review of Systems
-
All other systems: Reviewed and negative
EENT: Reports Sore Throat
Physical Exam
-
General: Well Developed, Well Nourished and No Apparent Distress
HEENT: Normocephalic and Atraumatic; Negative Thrush
Respiratory: Clear to Auscultation; Negative Wheezes or Rhonchi
Cardiac: Regular Rhythm and S1/S2; Negative Murmur
GI: Soft, Nontender, Nondistended and Normal Bowel Sounds
Musculoskeletal: No Clubbing, No Cyanosis and No Edema
Neuro: Awake
[2023-06-15 10:26] LABS: Glucose - Point of Care 208 mg/dl (70-99)
[2023-06-15 11:21] LABS: Glucose - Point of Care 207 mg/dl (70-99)
--- NOTE | 2023-06-15 11:27 | PN.DE.MGMTRT ---
Insulin Management
- -
06/15/2023: Diabetes Management Consult:
Patient admitted 06/13 with DKA, well known from previous admission with DKA
PMH: T1DM (12 yrs old), CHF, SLE and anorexia.
Glucose on admission was 253 with a GAP of 31. She was on insulin infusion, requiring 2 to 3 units of insulin/hr with a glucose range of 99 to 233.
GAP @ 3:44 2, Current GAP is 8.
No nausea or vomiting, patient is awake alert and oriented. has arrived with pod and supplies
Pump settings as follows
Basal rate 12am - 12am 1.5 u/h
ICR 1:7.5
Target range 70-180
Correction Factor 1:30
Duration 4hrs
24 hr total basal 36 units
Patient uses Humalog insulin, to fill POD and restart pump. Insulin infusion to be stopped one hour after.
1800 Calorie diet started
Diabetes History
- -
Type of Diabetes: 1
Pre-Admission Diabetes Regimen
06/14/23 06/14/23 06/14/23
14:05 15:18 17:00
Creatinine 1.7 H 1.4 H Cancelled
06/14/23 06/14/23 06/14/23
18:28 19:00 20:26
Creatinine 1.1 H Cancelled 1.0
06/14/23 06/15/23 06/15/23
22:00 00:12 03:44
Creatinine Cancelled 0.7 0.6
06/15/23
08:15
Creatinine 0.5 L
Lab Results
Hemoglobin A1c 7.0 % (4.0-5.6) H 06/15/23 03:44
Insulin Pump Settings
IP Diabetes Regimen
06/14/23 06/14/23 06/14/23
12:56 14:05 15:18
Glucose 217 H 178 H
POC Glucose 253 H
06/14/23 06/14/23 06/14/23
15:59 17:00 17:06
Glucose Cancelled
POC Glucose 171 H 145 H
06/14/23 06/14/23 06/14/23
18:21 18:28 19:00
Glucose 169 H Cancelled
POC Glucose 151 H
06/14/23 06/14/23 06/14/23
19:38 20:08 20:26
Glucose 230 H
POC Glucose 266 H 213 H
06/14/23 06/14/23 06/14/23
21:10 22:00 22:10
Glucose Cancelled
POC Glucose 251 H 245 H
06/14/23 06/15/23 06/15/23
23:09 00:02 00:12
Glucose 210 H
POC Glucose 204 H 207 H
06/15/23 06/15/23 06/15/23
01:01 02:11 03:12
Glucose
POC Glucose 188 H 196 H 236 H
06/15/23 06/15/23 06/15/23
03:44 04:07 05:07
Glucose 237 H
POC Glucose 233 H 101 H
06/15/23 06/15/23 06/15/23
06:01 07:20 08:15
Glucose 233 H
POC Glucose 99 211 H 236 H
06/15/23 06/15/23 06/15/23
09:06 10:14 11:10
Glucose
POC Glucose 214 H 208 H 207 H
Meal type: Breakfast
Patient Education
[2023-06-15 12:05] LABS: Urine Albumin Trace (Neg - Trace); Urine Bilirubin 1+ (Negative); Urine Character Slightly Cloudy (Clear); Urine Color Yellow; Urine Glucose 1+ (Negative); Urine Ketone 3+ (Negative); Urine Leukocyte Trace (Negative); Urine Nitrite Negative (Negative); Urine Occult Blood Negative (Negative); Urine Specific Gravity 1.015 (<1.030); Urine Urobilinogen Negative (Neg - 1+)
[2023-06-15 12:29] LABS: Glucose - Point of Care 241 mg/dl (70-99)
--- NOTE | 2023-06-15 12:30 | PTCARENOTE ---
Diabetic HOP WORKER in to evaluate pt. Pt's brought in pt's home Insulin pump w/ controller. Pt resumed Insulin pump at 115 per P Marieiskkarla GODWIN. Insulin gtt and IVF d/c'ed at 1215. Pt ordered lunch. Provided Insulin pump worksheet to use. No
changes from previous assessment findings.
[2023-06-15 12:50] LABS: Urine Squamous Cell >30 /LPF (Few)
[2023-06-15 12:52] LABS: Urine Bacteria Moderate (Negative)
[2023-06-15] MEDS: PT'S OWN INSULIN PUMP - HumaLOG 7.09999999999999964 UNIT SC (13:00)
[2023-06-15] MEDS: NEUTRA-PHOS POWDER PACKET 250 MG PO ×3 (13:34→21:20)
--- NOTE | 2023-06-15 14:18 | CM ---
Addendum entered by Lianna Youngblood 06/15/23 14:21:
Per prior assessment patient at that time indicated that she lived with her and 2 daughters. Patient's home is split level with 3 steps walkway and one step to enter. Pt has no history of SNF or homecare services. Pt has continuous
insulin pump.
Original Note:
Patient seen at bedside with physician. Patient confirmed no changes in discharge plan from prior admission. Patient very sleepy. Patient PCP is with [facility] and she uses the [facility] on [address] in [place]. Patient plan is to return
home with her family and supports at home. CM will continue to follow for discharge planning needs.
Plan; home with DM follow up
--- NOTE | 2023-06-15 15:33 | PN.CDI ---
CDI
- -
CDI:
Physician Documentation Request
Admit Date: 06/14/23 16:27
Dear Doctor Mika,
Please review the following and provide your response in the progress notes.
Due to conflicting documentation, please clarify the type of diabetes mellitus
Clinical Indicators:
H+P, 06/13
#...37-year-old female with type 1 diabetes mellitus who has insulin pump
#...who presented with complaints of 'I think I am in DKA'.
#Type 1 diabetes mellitus with insulin pump
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
Talent Analyst, consult, 06/13
#DM type I complicated by DKA without coma - only mild hyperglycemia and perhaps this is due to the patient's insulin pump (was de-activated today) -
#...DKA likely triggered by recent viral illness with gastritis
PN, 06/14
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
#...and previous admissions for DKA--
Please clarify the type of diabetes mellitus (DM):
- Type I DM
- Type II DM
- Other type of DM (please specify)
Use of terms such as suspected, likely, concern for, or probable (associated with a specific diagnosis that is being evaluated, monitored, or treated as if it exists) are acceptable and can be coded in the inpatient setting, when documented at the
time of discharge.
Thank you,
Lisa Styles RN BSN CCDS
CDI Specialist
please contact via tiger text
Please use your independent medical judgment in providing your response.
[2023-06-15] MEDS: PT'S OWN INSULIN PUMP - HumaLOG 4 UNIT SC (16:00)
--- NOTE | 2023-06-15 16:30 | PTCARENOTE ---
Pt has napped for long intervals this shift. Declined offer to sit OOB in chair despite encouragement. Completed self hygiene. Ambulating to BR independently w/ steady gait. Pt reports continued chest wall discomfort 'from vomiting' despite Tylenol
administration. Dr Brennan notified and new orders received. Safe environment maintained and call rodrigo w/in pt reach.
[2023-06-15] MEDS: NEURONTIN 300 MG PO ×2 (17:06→21:21)
[2023-06-15 17:21] LABS: Glucose - Point of Care 207 mg/dl (70-99)
[2023-06-15] MEDS: TORADOL 15 MG IV (17:37)
[2023-06-15] MEDS: LOVENOX 40 MG SC (17:49)
[2023-06-15] MEDS: ALDACTONE 50 MG PO (19:53)
--- NOTE | 2023-06-15 20:00 | PTCARENOTE ---
rec`d pt at 1900, laying in bed, AAOx3. flat affect. SR on monitor. Hr between 90s and low 100s. peripherals flushed and patent. + pulses, no edema. lungs clear, RA satting at 99%. no BM. pt ambulates to use bathroom. pt own specific insulin pump
continued in use. call wallace in reach, safe environment maintained.
[2023-06-15] MEDS: MELATONIN 10 MG PO (21:20)
[2023-06-15] MEDS: CATAPRES 0.200000000000000011 MG PO (21:21)
[2023-06-15] MEDS: ZOLOFT 100 MG PO (21:21)
[2023-06-15] MEDS: NEURONTIN 200 MG PO (21:21)
[2023-06-15] MEDS: LIPITOR 10 MG PO (21:21)
[2023-06-15] MEDS: SYNTHROID 50 MCG PO (21:21)
[2023-06-15] MEDS: PT'S OWN INSULIN PUMP - HumaLOG SC (21:27)
[2023-06-15 22:56] LABS: Glucose - Point of Care 161 mg/dl (70-99)
[2023-06-16] VITALS (10 sets, daily range): BP systolic 83–115; BP diastolic 55–83; PULSE 96–131; BMI 20.8
--- NOTE | 2023-06-16 | PTCARENOTE ---
pt reassessed, no changes in pt assessment. call wallace in reach.
[2023-06-16 04:16] LABS: Hematocrit 24.8 % (37.0-47.0); Hemoglobin 8.6 g/dL (12.0-16.0); Mean Corp Hgb Conc. 34.7 g/dL (33.0-37.0); Mean Corpuscular Volume 89.5 fL (81.0-99.0); Mean Platelet Volume 10.1 fL (7.4-10.4); Platelet Count 117 10^3/uL (130-400); Red Blood Cell Count 2.77 10^6/uL (4.20-5.40); Red Cell Dist. Width 14.6 % (11.5-14.5); White Blood Cell Count 6.1 10^3/uL (4.8-10.8)
[2023-06-16 04:41] LABS: ALT (SGPT) 11 U/L (0-35); AST (SGOT) 21 U/L (14-36); Albumin 2.5 g/dl (3.5-5.0); Alkaline Phosphatase 63 U/L (38-126); Blood Urea Nitrogen 22 mg/dl (7-17); Calcium 8.8 mg/dl (8.4-10.2); Carbon Dioxide 25 mmol/L (22-30); Chloride 105 mmol/L (98-107); Estimated Creatinine Clearance 124 ml/min; Glucose 128 mg/dl (70-99); Magnesium 1.5 mg/dl (1.6-2.3); Potassium 3.3 mmol/L (3.5-5.1); Sodium 133 mmol/L (135-145); Total Bilirubin 0.4 mg/dl (0.2-1.3); Total Protein 4.7 g/dl (6.3-8.2); eGFR > 60.00
[2023-06-16] MEDS: KCL 270 MEQ IV (06:01)
[2023-06-16] MEDS: MAGNESIUM SULFATE 50 IV (06:04)
[2023-06-16 07:55] LABS: Glucose - Point of Care 148 mg/dl (70-99)
[2023-06-16] MEDS: ALDACTONE 50 MG PO (08:39)
[2023-06-16] MEDS: NEURONTIN 300 MG PO (08:39)
[2023-06-16] MEDS: NEUTRA-PHOS POWDER PACKET 250 MG PO ×2 (08:40→13:49)
[2023-06-16] MEDS: TORADOL 15 MG IV (08:40)
[2023-06-16] MEDS: PROTONIX 40 MG PO (08:40)
[2023-06-16] MEDS: VITAMIN B1 100 MG PO (08:40)
--- NOTE | 2023-06-16 08:45 | PTCARENOTE ---
Rec' d pt at 0800 awake alert and oriented resting in bed. Affect is sl flat but pt will readily interact. Admitted to 8-11/28 throat pain especially with swallowing and some indigestion feeling- much like she had yesterday. Asked for Toradol and
medicated at 0840 with 15 mg of Toradol. Speech is clear Denies dizziness or headache. Skin is pale pink wm and dry. Cheeks sl flushed. Insulin pump in place in abd-site wnl. Pt using own insulin pump. Respirs are unlabored on RA with sats of 99%.
BS are minimally decreased at the bases otherwise clear. Monitor SR in the 90's at rest but will go up to the 140-150 briefly with getting oob. VS as documented. + pulses. No edema. Abd is soft with + BS. Denies nausea. Voiding in the bathroom. KCL
rider infusing via L wrist IV site. Capped int intact LAC. Pt able to reposition herself. Call wallace in reach. Plan of care reviewed with pt.
--- NOTE | 2023-06-16 09:09 | W.PN.HOSP.TC ---
Today's Communication/Plan
-
anticipate d/c home around lunch if BP stays good
Assessment / Plan
Assessment / Plan
pt is a 37 year old female
hypotension--BPs running lower--most of yesterday--replete K/mag (hypokalemia/hypomagnesemia)--if BP improves this AM, can d/c at lunch
metabolic acidosis --resolved-- likely DKA--beta hydroxybutyrate high--apprec special officer--s/p insulin drip and IV fluids with dextrose--apprec diabetic nurse practitioners to help transition back to her insulin pump--cultures negative
Hypothyroidism--continue levothyroxine
Type 1 diabetes mellitus with complications of neuropathy and previous admissions for DKA--since patient is n.p.o., restart gabapentin--restarted insulin pump, apprec input from CITL[facility] DM
Hyperlipidemia--continue atorvastatin
Sleep disturbance--patient states she takes clonidine for sleep--hold melatonin
History of diastolic congestive heart failure--appears dry on exam--would continue IV fluid--adjust as needed--hold spironolactone
History of depression--hold sertraline until patient taking p.o.
GERD--continue IV Protonix--hold oral
DVT prophylaxis--Lovenox
CODE STATUS--full code
Anticipated Discharge: Today
Subjective/Interval History
-
Date of Service: June 16, 2023
pt doing well, back on her pump
Objective Data
-
Labs:
Laboratory Results
06/15/23 06/16/23
20:00 03:46
WBC Cancelled 6.1
Hgb Cancelled 8.6 L
Hct Cancelled 24.8 L
Plt Count Cancelled 117 L D
Sodium 133 L
Potassium 3.3 L
Chloride 105
Carbon Dioxide 25
BUN 22 H
Creatinine 0.4 L
Glucose 128 H
Calcium 8.8
Total Bilirubin 0.4
AST 21
ALT 11
Alkaline Phosphatase 63
Vital Signs:
max temp for 24 hours
06/16/23
03:51
Temp 98.2 F
Vital Signs
Temp Pulse Resp BP Pulse Ox
98.2 F 93 19 109/78 99
06/16/23 07:51 06/16/23 08:39 06/15/23 08:00 06/16/23 08:39 06/15/23 20:00
I&O
06/15/23 06/16/23 06/17/23
06:59 06:59 06:59
Intake Total 1928.0 / 1928.0 1258 / 1258
Balance 1928.0 / 1928.0 1258 / 1258
Review of Systems
-
All other systems: Reviewed and negative
Physical Exam
-
General: Well Developed, Well Nourished and No Apparent Distress
HEENT: Normocephalic and Atraumatic
Respiratory: Clear to Auscultation; Negative Wheezes or Rhonchi
Cardiac: Regular Rhythm and S1/S2; Negative Murmur
GI: Soft, Nontender, Nondistended and Normal Bowel Sounds
Musculoskeletal: No Clubbing, No Cyanosis and No Edema
Neuro: Awake and Alert
Psych: Calm
--- NOTE | 2023-06-16 09:12 | CM ---
Patient seen at bedside. Patient for possible discharge home today with no needs anticipated. Patient has a ride home. CM will continue to follow for discharge planning needs.
Plan; home with no needs anticipated.
[2023-06-16] MEDS: PT'S OWN INSULIN PUMP - HumaLOG 9 UNIT SC (09:20)
--- NOTE | 2023-06-16 09:20 | PTCARENOTE ---
Ready to eat breakfast. Accucheck 157- via pts pump BS reading 210- pt states she will recalibrate her machine but dose off of the accucheck. KCL rider almost complete. Pt ambulated to the bathroom and has been ambulating around the room. No c/o
dizziness. Will continue to monitor
[2023-06-16 09:26] LABS: Glucose - Point of Care 157 mg/dl (70-99)
--- NOTE | 2023-06-16 10:27 | PN.DE.MGMTRT ---
Insulin Management
- -
05/21/2023: Diabetes Management Follow up:
Patient admitted 06/13 with DKA, well known from previous admission with DKA
PMH: T1DM (12 yrs old), CHF, SLE and anorexia.
Patient is awake alert and oriented this AM.
Glucose on admission was 253 with a GAP of 31. She was on insulin infusion, requiring 2 to 3 units of insulin/hr with a glucose range of 99 to 233.
GAP @ 3:44 2, Current GAP is 8.
OmniPod pump restarted yesterday AM then drip D/C. Glucose did trend up to 241, patient corrected, HS glucose 161 fasting this AM 128 venous.
Will make no changes to pump settings.
Basal rate 12am - 12am 1.5 u/h
ICR 1:7.5
Target range 70-180
Correction Factor 1:30
Duration 4hrs
24 hr total basal 36 units
Patient uses Humalog insulin.
1800 Calorie diet started
Diabetes History
- -
Type of Diabetes: 1
Pre-Admission Diabetes Regimen
06/15/23 06/15/23 06/16/23
12:00 16:00 03:46
Creatinine Cancelled Cancelled 0.4 L
Lab Results
Hemoglobin A1c 7.0 % (4.0-5.6) H 06/15/23 03:44
Insulin Pump Settings
IP Diabetes Regimen
06/15/23 06/15/23 06/15/23
11:10 12:00 12:17
Glucose Cancelled
POC Glucose 207 H 241 H
06/15/23 06/15/23 06/15/23
16:00 17:10 22:45
Glucose Cancelled
POC Glucose 207 H 161 H
06/16/23 06/16/23 06/16/23
03:46 07:44 09:15
Glucose 128 H
POC Glucose 148 H 157 H
Meal type: Breakfast
Meal type: Dinner
Meal type: Lunch
Amount consumed: 60%
Amount consumed: 70%
Amount consumed: 25%
Patient Education
--- NOTE | 2023-06-16 11:45 | PTCARENOTE ---
Pt has been resting most of the morning. Did orthostatic VS on her to check for any hypotension with standing. VS as documented. Lowest BP was 95/70 sitting. HR did go up to the 130's with standing which pt states she will get tachy at home at times
especially if she doesn't feel well. Will update Dr. Brennan. No other changes
[2023-06-16 13:09] LABS: Glucose - Point of Care 150 mg/dl (70-99)
[2023-06-16] MEDS: PT'S OWN INSULIN PUMP - HumaLOG 8.65000000000000036 UNIT SC (13:12)
--- NOTE | 2023-06-16 13:30 | PTCARENOTE ---
Awaiting possible discharge. No complaints offered.
--- NOTE | 2023-06-16 15:00 | PTCARENOTE ---
Discharge instructions reviewed with pt. Verbalized understanding. Capped ints dc'd LAC and L wrist. sites wnl. Tele pack removed. Pt taken via wheelchair and discharaged with .
--- NOTE | 2023-06-16 17:44 | W.DCSUMMARY ---
Discharge Summary
Discharge Data
Date of Admission: 06/14/23
Date of Discharge: 06/16/23
-
Pending Results: Yes
Additional Pending Results:
Ethyl alcohol level and methyl alcohol levels
Hospital Course
Primary care physician : Lisa Jose
Principal Discharge diagnosis : Metabolic acidosis due to diabetic ketoacidosis, hypotension
Chronic Discharge diagnosis : Hypothyroidism, type 1 diabetes mellitus with complications of neuropathy and previous admissions for DKA, hyperlipidemia, sleep disturbance, history of diastolic congestive heart failure by documentation, history of
depression, gastroesophageal reflux disease
Hospital Course : Patient was a 37-year-old female with a history of type 1 diabetes mellitus with an insulin pump who presented with the complaints of thinking she was in DKA. Usual triggers for her are when her daughter is sick then the patient
gets sick. Patient complained of nausea, vomiting, headache, inability to sleep, lethargy, and shortness of breath. She was also complaining of chest and throat pain. Workup in the emergency department found her to have an increased anion gap
consistent with metabolic acidosis and concern for diabetic ketoacidosis. Patient was admitted.
Problem #1: Metabolic acidosis due to diabetic ketoacidosis. Patient was admitted to the intensive care unit and started on an insulin drip. Because the sugars were not terribly high, IV fluids with dextrose were added. Patient's anion gap
eventually closed x 2. Patient was seen in consultation by the diabetic nurse practitioners to help with transitioning her back to her insulin pump. Infectious workup was negative. Beta hydroxybutyrate was > 9. Salicylates were less than 1.
Alcohol was not detected. Ethylene glycol and methyl alcohol were sent for completeness. They are pending at this time.
Problem #2: Hypotension. Blood pressures were running a bit lower mostly overnight. Magnesium and potassium were repleted due to hypokalemia and hypomagnesemia. Blood pressures did improve and the patient is stable for discharge.
Problem #3: All other medical issues. These include Hypothyroidism, type 1 diabetes mellitus with complications of neuropathy and previous admissions for DKA, hyperlipidemia, sleep disturbance, history of diastolic congestive heart failure by
documentation, history of depression, gastroesophageal reflux disease. These medical issues were stable during her hospitalization. Medications were continued as able.
Patient is stable for discharge home at this time. If there are any questions regarding this dictation or her hospital stay, please not hesitate to call. Our office number is [phone].
Discharge Plan
-
Patient Disposition: Home (Routine Discharge)
Discharge Diagnosis/Procedures: Metabolic acidosis due to DKA, hypotension, hypothyroidism, type 1 diabetes mellitus with complications of neuropathy and previous admissions for DKA, hyperlipidemia, sleep disturbance, history of diastolic congestive
heart failure by records, history of depression, gastroesophageal reflux disease
Condition: Good
Diet: Diabetic, Carb Controlled
Activity: As tolerated
Driving Restrictions: As prior to admission
Bathing Restrictions: None
Referrals:
Lisa Jose CRNP [Family Provider] - in less than 1 week
Prescriptions:
New
thiamine HCl (vitamin B1) 100 mg Tablet
100 mg PO DAILY Qty: 0 0RF
Continued
folic acid 1 mg tablet
1 mg PO HS
sertraline 100 mg tablet
100 mg PO HS
gabapentin 300 mg capsule
300 mg PO TID
spironolactone 50 mg tablet
50 mg PO BID
levothyroxine 50 mcg tablet
50 mcg PO HS
atorvastatin 10 mg Tablet
10 mg PO HS
clonidine HCl 0.2 mg Tablet
0.2 mg PO HS
gabapentin 100 mg Capsule
200 mg PO HS
Rx Instructions:
06/14/2023, take with 300 mg for a total of 500 mg.
melatonin 10 mg Tablet
10 mg PO HS
Patient's Own Insulin
0 unit SC .VIA PUMP
Patient Comments:
06/14/2023, pt. uses Humalog 100 unit/ml insulin and changes her insulin Q72H; per pt., she has 50 units left in her pump when she changes it and adds 200 units when she refills it totaling 250 units.
pantoprazole 40 mg tablet,delayed release (DR/EC)
40 mg PO DAILYPRN PRN (Reason: gerd)
Discontinued
dextroamphetamine-amphetamine 15 mg tablet
15 mg PO TIDPRN PRN (Reason: work day attention)
Discharge Orders:
Discharge Patient (As Directed); Ordered 06/16/23
Ordered By: Lisa Brennan
Discharge Date and Time
Discharge Date/Time: 06/16/23 15:21
Print Language: MOHAWK
== END 2023-06-16 15:21 | disposition home or self-care (01) | DRG 638 ==
LOC: ICU 16:27
PROVIDERS: ADMITTING PHYSICIAN Internal Medicine; CONSULT PHYSICIAN Internal Medicine Critical Care Medicine; EMERGENCY PHYSICIAN Emergency Medicine; FAMILY PHYSICIAN Nurse Practitioner Adult Health
DX: E10.11 Type 1 diabetes mellitus with ketoacidosis with coma (principal); E87.1 Hypo-osmolality and hyponatremia; I50.32 Chronic diastolic (congestive) heart failure; N17.9 Acute kidney failure, unspecified; Z11.52 Encounter for screening for COVID-19; Z79.4 Long term (current) use of insulin; Z96.41 Presence of insulin pump (external) (internal); E03.9 Hypothyroidism, unspecified; E78.5 Hyperlipidemia, unspecified; K21.9 Gastro-esophageal reflux disease without esophagitis; Z87.891 Personal history of nicotine dependence; F32.A Depression, unspecified; E10.42 Type 1 diabetes mellitus with diabetic polyneuropathy; I11.0 Hypertensive heart disease with heart failure; K76.0 Fatty (change of) liver, not elsewhere classified; F10.10 Alcohol abuse, uncomplicated; E87.8 Other disorders of electrolyte and fluid balance, not elsewhere classified
CPT/HCPCS: 80048; 80053; 80179; 80320; 81003; 81015; 82010; 82077; 82248; 82693; 82805; 82962; 82977; 83036; 83605; 83690; 83735; 83930; 84100; 84443; 84703; 85025; 85027; 87040; 87086; 87502; 87811; 93005; 96361; 96374; 99291

== ENCOUNTER 2023-07-22 14:07 | Inpatient (IN) | payer BC, SELFPAY ==
[2023-07-22] VITALS (9 sets, daily range): BP systolic 118–201; BP diastolic 82–119
--- NOTE | 2023-07-22 11:29 | ED.GENMED ---
History of Present Illness
General
Chief Complaint: Abdominal Symptoms
Source: patient and family
Exam Limitations: none
Time Seen by Provider: 07/22/23 10:39
Nursing documentation reviewed up to this point in time: agreed with
Travel History
Have you had any contact with someone who has COVID-19?: No
Do you have any symptoms of coronavirus? Fever > 100 degrees, chills, cough, shortness of breath, sore throat, loss of taste or smell, muscle aches, or headache?: No
History of Present Illness
History of Present Illness:
37-year-old female independent diabetic for 25 years presents with nausea vomiting decreased p.o. intake has not kept much food or water down for about 3 days blood sugars elevated 200 range now in the normal range feels fatigued has some abdominal
cramping, no blood in her vomit or stools has had irregular periods unsure if she could be , typically does not get nausea or vomiting with no fevers no chest pain
Past History
Past History
ED Past Medical History: HTN, IDDM and Other (folate def., macrocytic anemia, hepatic steatosis)
ED Past Surgical History: Gynecological
Patient has exhibited threatening behavior?: No
PSI?: No
Social History
Tobacco: Non-smoker
Drug: None
Personal:
Living: with family
Employment: Employed
Review of Systems
Review of Systems
All Other Systems: Not applicable
Constitutional: Reports fatigue; Denies fever
Respiratory: Reports no symptoms
Cardiac: Reports no symptoms
ABD/GI: Reports abdominal pain, nausea and vomiting; Denies diarrhea
: Reports no symptoms
Musculoskeletal: Reports no symptoms
Neurological: Reports weakness
Endocrine: Reports no symptoms
Phy Exam
Physical Exam
Physical Exam:
Physical Exam
General: no apparent distress, not acutely ill
Neck: Dry lips
Heart: s1/s2 regular rate and rhythm, no murmur. equal radial pulses.
Lungs: no acute respiratory distress. clear bilaterally
Abdomen: Soft mild diffuse tenderness
Neuro: alert and oriented. no focal neurological deficits
Skin: no rash
Psychiatric: well kept. interactive and cooperative
Extremities: no edema. no calf tenderness.
Course
Orders/Labs/Results
Orders:
Orders
07/22/23 10:49
Cardiac Monitoring- Treatment ONCE
Urinalysis Reflex To Culture Urgent
Test Result ONCE
07/22/23 10:50
Electrocardiogram (*1) Stat
Reason for Study: Abdominal Pain
EKG- Treatment ONCE
07/22/23 11:20
0.9% Sodium Chloride 1000 ml [Nss] 1,000 ml IV BOLUS
Ondansetron Injectable [Zofran] 4 mg IV NOW STA
07/22/23 11:33
Complete Blood Count/With Diff Urgent
Comprehensive Metabolic Panel Urgent
HCG, Serum Qualitative Screen Urgent
Lipase Urgent
07/22/23 12:48
Ketorolac [Toradol] 15 mg IV NOW STA
07/22/23 12:49
Add On- LAB Urgent
Tests Added?: magnesium
0.9% Sodium Chloride 1000 ml [Nss] 1,000 ml IV BOLUS
07/22/23 12:50
Electrocardiogram (*1) Urgent
Reason for Study: Chest Pain
EKG- Treatment ONCE
Pantoprazole [Protonix IV] 40 mg IV NOW STA
07/22/23 12:51
Morphine Sulfate 4 mg IV NOW STA
07/22/23 12:56
Potassium Chloride [KCl] 40 meq 0.9% Sodium Chloride 250 ml [Nss] 250 ml IV NOW
Abnormal Lab Results
07/22/23
11:33
MCH 26.0 L pg
(27.0-31.0)
MCHC 32.1 L g/dL
(33.0-37.0)
RDW 17.2 H %
(11.5-14.5)
Absolute Monos (auto) 0.9 H 10^3/uL
(0.1-0.6)
Lymphocytes % 20.1 L %
(20.5-51.1)
Monocytes % 9.5 H %
(1.7-9.3)
Sodium 134 L mmol/L
(135-145)
Potassium 3.1 L mmol/L
(3.5-5.1)
Chloride 94 L mmol/L
(98-107)
BUN 25 H mg/dl
(7-17)
Creatinine 0.5 L mg/dL
(0.6-1.0)
Glucose 172 H mg/dl
(70-99)
AST 91 H U/L
(14-36)
ALT 41 H U/L
(0-35)
Alkaline Phosphatase 136 H U/L
(38-126)
Lipase 726 H U/L
(23-300)
07/22/23 11:33
07/22/23 11:33
Vital Signs
Initial and Last Documented VS:
Initial Vital Signs
Temp Pulse Resp BP Pulse Ox
96.5 F L 122 18 168/118 100
07/22/23 10:24 07/22/23 10:24 07/22/23 10:24 07/22/23 10:24 07/22/23 10:24
Last Documented Vital Signs
Temp Pulse Resp BP Pulse Ox
96.5 F L 77 16 146/100 94
07/22/23 10:24 07/22/23 12:00 07/22/23 12:00 07/22/23 12:00 07/22/23 12:00
MDM/Problems Addressed
Differential Diagnosis Includes:
DKA dehydration gastroparesis enteritis other intra-abdominal process
MDM/Problems Addressed:
Nausea vomiting
Chronic conditions affecting care: DM
Acute Exacerbation and/or Progression of Chronic Illness: DM
*Pulse Oximetry
Patient hypoxic: no
*EKG
Interpreted by ED Provider?: Yes
Interpretation: normal
Rate: normal
Rhythm: sinus
Ischemia: no ischemia
*Silver Buffer Interpretation
Rate: normal
Interpretation: normal
Heart Rate: 78
Rhythm: sinus
*Critical Care Note
Total Time (30-74mins, 75-104mins- exclusive of procedures): Not Applicable
Data Reviewed
Review of Other/Old Records Reveals: Labs
Source: patient and family
Update Note
Update Note:
1235 labs noted, will try some ice chips, advance diet slowly
1330 pt still nausea, heartburn feeling, will keep npo, replete K iv, PPI, ekg admit
ED Attending Note
-
Portions of this chart may have been created with voice recognition software.� Occasional wrong word or��sound alike� substitutions may have occurred due to the inherent limitations of voice recognition software.
Discharge Plan
Departure
Patient Disposition: Admit
Date of Disposition: 07/22/23
Time of Disposition: 13:06
Admit to: Telemetry
Presentation/result/management discussed w/ accepting MD/DO: Hospitalist
Patient with high blood pressure during this ER visit?: No
Condition: Fair
Discharge Problem:
Type 1 diabetes, hypochloremic hyponatremia, Low serum potassium level
Prescriptions:
No Action
folic acid 1 mg tablet
1 mg PO HS
sertraline 100 mg tablet
100 mg PO HS
gabapentin 300 mg capsule
300 mg PO TID
spironolactone 50 mg tablet
50 mg PO BID
levothyroxine 50 mcg tablet
50 mcg PO HS
atorvastatin 10 mg Tablet
10 mg PO HS
clonidine HCl 0.2 mg Tablet
0.2 mg PO HS
gabapentin 100 mg Capsule
200 mg PO HS
Rx Instructions:
06/14/2023, take with 300 mg for a total of 500 mg.
melatonin 10 mg Tablet
10 mg PO HS
Patient's Own Insulin
0 unit SC .VIA PUMP
Patient Comments:
06/14/2023, pt. uses Humalog 100 unit/ml insulin and changes her insulin Q72H; per pt., she has 50 units left in her pump when she changes it and adds 200 units when she refills it totaling 250 units.
pantoprazole 40 mg tablet,delayed release (DR/EC)
40 mg PO DAILYPRN PRN (Reason: gerd)
thiamine HCl (vitamin B1) 100 mg Tablet
100 mg PO DAILY Qty: 0 0RF
Referrals:
Lias Jose CRNP [Family Provider] -
Interventions
Interventions:
*Risk Screen - Suicide Last Done: 07/22/23 10:26
*General Assessment Last Done: 07/22/23 10:26
*Neglect/Abuse Screening Last Done: 07/22/23 10:26
*ED COVID-19 Vaccine History Last Done: 07/22/23 11:39
QM-Iniymf-Jdkmpjokot Assessment Last Done: 07/22/23 11:39
Discharge Date and Time
Print Language: EQUATORIAL GUINEAN
[2023-07-22] MEDS: ZOFRAN 4 MG IV ×3 (11:35→23:47)
[2023-07-22] MEDS: NSS 1000 IV ×3 (11:35→17:19)
[2023-07-22 11:50] LABS: % Basophils 0.7 % (0-2); % Eosinophils 1.2 % (0-6); % Immature Granulocytes 0.3 % (0-0.5); % Lymphocytes 20.1 % (20.5-51.1); % Monocytes 9.5 % (1.7-9.3); % Neutrophils 68.2 % (42.2-75.2); Absolute Basophils 0.1 10^3/uL (0-0.2); Absolute Eosinophils 0.1 10^3/uL (0-0.7); Absolute Lymphocytes 1.8 10^3/uL (1.2-3.4); Absolute Monocytes 0.9 10^3/uL (0.1-0.6); Absolute Neutrophils 6.2 10^3/uL (1.4-6.5); Hematocrit 39.3 % (37.0-47.0); Hemoglobin 12.6 g/dL (12.0-16.0); Mean Corp Hgb Conc. 32.1 g/dL (33.0-37.0); Mean Platelet Volume 9.4 fL (7.4-10.4); Nucleated Red Blood Cells % 0 %; Platelet Count 286 10^3/uL (130-400); Red Blood Cell Count 4.85 10^6/uL (4.20-5.40); Red Cell Dist. Width 17.2 % (11.5-14.5); White Blood Cell Count 9.1 10^3/uL (4.8-10.8)
[2023-07-22 11:53] LABS: ALT (SGPT) 41 U/L (0-35); AST (SGOT) 91 U/L (14-36); Albumin 4.7 g/dl (3.5-5.0); Alkaline Phosphatase 136 U/L (38-126); Blood Urea Nitrogen 25 mg/dl (7-17); Calcium 9.9 mg/dl (8.4-10.2); Carbon Dioxide 24 mmol/L (22-30); Chloride 94 mmol/L (98-107); Estimated Creatinine Clearance 120 ml/min; Glucose 172 mg/dl (70-99); Potassium 3.1 mmol/L (3.5-5.1); Sodium 134 mmol/L (135-145); Total Bilirubin 0.8 mg/dl (0.2-1.3); Total Protein 7.7 g/dl (6.3-8.2); eGFR > 60.00
[2023-07-22 12:20] LABS: Lipase 726 U/L (23-300)
[2023-07-22 12:48] LABS: HCG, Serum Qualitative Screen Negative
--- NOTE | 2023-07-22 13:00 | HPS.HSE ---
Addendum entered and electronically signed by Ulices Morris MD 07/22/23 14:17:
Recurrent vomiting episodes 07/18 with abd pain onset 07/20. Pt unaware of what could have triggered symptoms. Denies cannabis, rarely drinks Etoh (<1/wk) and no one else has been ill among her contacts.
Because of worsening symptoms she came to [facility] where noted to be very uncomfortable from vomiting and hypokalemic
Pt seen independently and agree with CITLALI note
Lungs clear
CV reg
Abd soft, nondistended, normally active BS
Ext no edema
Pt examined with Lizzie GODWIN skating carhop
HCG - neg
Imp:recurrent vomiting unclear trigger
Hypokalemia
Type 1 IDDM on insulin pump
P:IVF
scheduled Zofran
follow EKG
hospital educator consult
replace K
Original Note:
Family Physician
-
Family Physician: CITLALI Gomez
Chief Complaint
-
n/v
History of Present Illness
37-year-old female with past medical history for type 1 diabetes, gastroparesis, hypertension presented to us with nausea, vomiting since Tuesday. Patient unable to tolerate any oral intake. Last bowel movement was on Tuesday. Patient complained
of generalized abdominal tenderness. Denied any blood in the vomit. Patient denied any diarrhea. Complaining of headache.patient denied fever, chills. Patient denied chest pain or short of breath. Patient denied dysuria hematuria.
Patient noted dehydrated in the ER/patient also noted to have hypokalemia. Patient received fluids, IV KCl and morphine. Admitting for further management
Medical History
Past Medical History
Past Medical History: Reports Other
Additional Past Medical History:
Lupus
Hepatic steatosis
Type 1 diabetes
neuropathy
Anemia
Depression
Vitamin D deficiency
Folate deficiency anemia
High cholesterol
Hypothyroidism
Hypertension
History of heart failure
Abscess on the buttocks
Past Surgical History: Reports Other
Additional Past Surgical History:
Right femoral neck status post screw fixation
Social History
Tobacco: Non-smoker
Alcohol: None
Drug: None
Family History
Family History: Not pertinent
Allergies / Home Medications
Allergies reflects when Allergies were last updated in [employer].
Home Medications with original date entered in [employer]
Allergy/Medication List:
Allergies
Allergy/AdvReac Type Severity Reaction Status Date / Time
No Known Allergies Allergy Verified 01/17/23 13:30
Home Medications
folic acid 1 mg tablet 1 mg PO HS Supplement 04/06/22
gabapentin 300 mg capsule 300 mg PO TID Pain 01/17/23
levothyroxine 50 mcg tablet 50 mcg PO HS Thyroid 01/17/23
sertraline 100 mg tablet 100 mg PO HS Mental Health/Anxiety 01/17/23
spironolactone 50 mg tablet 50 mg PO BID Blood Pressure 01/17/23
atorvastatin 10 mg tablet 10 mg PO HS High Cholesterol 01/20/23
Patient's Own Insulin 0 unit SC .VIA PUMP Diabetes 06/14/23
clonidine HCl 0.2 mg tablet 0.2 mg PO HS Blood Pressure 06/14/23
gabapentin 100 mg capsule 200 mg PO HS Pain 06/14/23
melatonin 10 mg tablet 10 mg PO HS Sleep 06/14/23
pantoprazole 40 mg tablet,delayed release 40 mg PO DAILYPRN PRN gerd 06/14/23
thiamine HCl (vitamin B1) 100 mg tablet 100 mg PO DAILY #0 tabs 06/16/23
Review of Systems
-
Constitutional: Reports No Symptoms
EENT: Reports No Symptoms
Respiratory: Reports No Symptoms
Cardiac: Reports No Symptoms
Abdomen/GI: Reports Abdominal Pain, Nausea and Vomiting
: Reports No Symptoms
Musculoskeletal: Reports No Symptoms
Skin: Reports No Symptoms
Neurological: Reports No Symptoms
Endocrine: Reports No Symptoms
Hematologic/Lymphatic: Reports No Symptoms
Psych: Reports No Symptoms
Physical Exam
Vital Signs
Vital Signs
Temp Pulse Resp BP Pulse Ox
96.5 F L 77 16 146/100 94
07/22/23 10:24 07/22/23 12:00 07/22/23 12:00 07/22/23 12:00 07/22/23 12:00
Physical Exam
General: Well Developed, Well Nourished and No Apparent Distress
HEENT: NormoCephalic, Moist mucous membranes and Atraumatic
Respiratory: Clear
Cardiac: S1/S2 and Regular Rhythm; No Murmur or Rub
GI: Soft, Non Distended, Normal Bowel Sounds and Tender; No Organomegaly
Rectal: Deferred by Provider
Musculoskeletal: No Clubbing, No Cyanosis and No Edema
Skin: No Rash
Neuro: Nonfocal/grossly intact
Laboratory Results
-
07/22/23 11:33
07/22/23 11:33
Laboratory Results
Total Bilirubin 0.8 mg/dl (0.2-1.3) 07/22/23 11:33
AST 91 U/L (14-36) H 07/22/23 11:33
ALT 41 U/L (0-35) H 07/22/23 11:33
Alkaline Phosphatase 136 U/L (38-126) H 07/22/23 11:33
Lipase 726 U/L (23-300) H 07/22/23 11:33
Data Reviewed
-
Lab Data: Labs Reviewed by me
Impression/Plan
-
# Nausea vomiting likely gastroparesis flare
-Zofran every 6 hours for nausea vomiting
-Clear liquid diet advance diet as tolerated
-Dilaudid as needed for pain
-Consider GI consult if no improvement
# Hyponatremia/hypokalemia likely from nausea vomiting
-Sodium 134, potassium 3.1
-IV KCl
-Will hydrate with fluids
-Monitor BMP in a.m.
# Elevated transaminase likely from dehydration/hxt of hepatic steatosis
-AST 91, ALT 41, ALK 136
-Continue with fluids
-Monitor LFT in a.m.
#hypertension
-Clonidine continued
#Hypothyroidism--continue levothyroxine
#Type 1 diabetes mellitus with complications of neuropathy
-gabapentin
-Insulin pump continued
-Diabetic nurse practitioner consulted
#Hyperlipidemia--continue atorvastatin
#Sleep disturbance
-Melatonin continued
#History of diastolic congestive heart failure
-appears dry on exam--would continue IV fluid--adjust as needed--hold spironolactone
#History of depression
-Sertraline continued
#GERD--continue IV Protonix
#DVT prophylaxis--Lovenox
#CODE STATUS--full code
[2023-07-22] MEDS: PROTONIX IV 40 MG IV (13:07)
[2023-07-22] MEDS: MORPHINE SULFATE 4 MG IV (13:07)
[2023-07-22] MEDS: KCL 270 MEQ IV (13:39)
[2023-07-22 13:46] LABS: Magnesium 1.5 mg/dl (1.6-2.3)
[2023-07-22] MEDS: NEURONTIN 300 MG PO ×2 (17:19→22:18)
[2023-07-22] MEDS: LOVENOX 40 MG SC (17:20)
[2023-07-22] MEDS: DILAUDID 1 MG IV (19:54)
[2023-07-22 21:10] LABS: Glucose - Point of Care 122 mg/dl (70-99)
[2023-07-22] MEDS: LIPITOR 10 MG PO (22:21)
[2023-07-22] MEDS: CATAPRES 0.200000000000000011 MG PO (22:21)
[2023-07-22] MEDS: MELATONIN 10 MG PO (22:21)
[2023-07-22] MEDS: SYNTHROID 50 MCG PO (22:21)
[2023-07-22] MEDS: ZOLOFT 100 MG PO (22:21)
[2023-07-22] MEDS: NEURONTIN 200 MG PO (22:21)
[2023-07-23] VITALS: BP 118/82
[2023-07-23] MEDS: DILAUDID 1 MG IV ×2 (04:26→10:33)
[2023-07-23] MEDS: NSS 1000 IV (04:28)
[2023-07-23 05:34] LABS: Urine Albumin Trace (Neg - Trace); Urine Bilirubin Negative (Negative); Urine Color Yellow; Urine Glucose 2+ (Negative); Urine Ketone 3+ (Negative); Urine Leukocyte 2+ (Negative); Urine Nitrite Negative (Negative); Urine Occult Blood 1+ (Negative); Urine Specific Gravity 1.015 (<1.030); Urine Urobilinogen 1+ (Neg - 1+)
[2023-07-23 05:36] LABS: Urine Character Cloudy (Clear)
[2023-07-23] MEDS: ZOFRAN 4 MG IV ×2 (05:51→14:06)
[2023-07-23 06:00] VITALS: BMI 20.6
[2023-07-23 06:39] LABS: Urine Amorphous Seen; Urine Squamous Cell >30 /LPF (Few)
[2023-07-23 06:40] LABS: Urine Bacteria Many (Negative); Urine White Cell >100 /HPF (0-5)
[2023-07-23 07:00] VITALS: BP 108/75
[2023-07-23 07:18] LABS: Glucose - Point of Care 138 mg/dl (70-99)
[2023-07-23 07:38] LABS: Hematocrit 30.8 % (37.0-47.0); Mean Corp Hgb Conc. 30.5 g/dL (33.0-37.0); Mean Corpuscular Hgb 26.1 pg (27.0-31.0); Mean Corpuscular Volume 85.6 fL (81.0-99.0); Mean Platelet Volume 10.1 fL (7.4-10.4); Platelet Count 199 10^3/uL (130-400); Red Cell Dist. Width 16.9 % (11.5-14.5); White Blood Cell Count 6.4 10^3/uL (4.8-10.8)
[2023-07-23 08:17] LABS: Hemoglobin 9.4 g/dL (12.0-16.0)
[2023-07-23 08:34] LABS: ALT (SGPT) 34 U/L (0-35); AST (SGOT) 64 U/L (14-36); Alkaline Phosphatase 85 U/L (38-126); Blood Urea Nitrogen 11 mg/dl (7-17); Carbon Dioxide 29 mmol/L (22-30); Chloride 98 mmol/L (98-107); Direct Bilirubin 0.3 mg/dl (0.0-0.4); Estimated Creatinine Clearance 123 ml/min; Glucose 137 mg/dl (70-99); Potassium 3.1 mmol/L (3.5-5.1); Sodium 132 mmol/L (135-145); Total Bilirubin 0.3 mg/dl (0.2-1.3); Total Protein 5.5 g/dl (6.3-8.2); eGFR > 60.00
[2023-07-23] MEDS: NEURONTIN 300 MG PO ×2 (08:46→15:51)
[2023-07-23 09:09] LABS: Glycohemoglobin (HgbA1c) 6.4 % (4.0-5.6)
[2023-07-23 11:00] VITALS: BMI 20.6
--- NOTE | 2023-07-23 11:13 | PTCARENOTE ---
pt did not wish to eat breakfast this morning as she wanted to wait until saw her in hopes of advancing her diet. It was advanced from clears to full prior to start of shift. however she wants to wait to see if she can have solids. She also did
want her adderall this morning and states she does not want he afternoon dose.
--- NOTE | 2023-07-23 11:17 | CM ---
CM met with patient in room. Patient confirmed demographics. Patient is active with her PCP at [facility]. Patient uses [facility] for medication services.
Patient has had a recent history of home PT after a hip fracture. She is no longer on service. Patient denies history of SNF and DME.
Plan for return to home with and children on discharge. No needs noted.
PLAN: Home no needs.
[2023-07-23 11:50] LABS: Glucose - Point of Care 114 mg/dl (70-99)
[2023-07-23] MEDS: STERILE WATER FOR INJECTION 10 ML IV (13:00)
[2023-07-23] MEDS: ROCEPHIN 1000 MG IV (13:01)
[2023-07-23] MEDS: KCL 20 MEQ PO (13:38)
[2023-07-23] MEDS: ADDERALL 15 MG PO (13:38)
--- NOTE | 2023-07-23 15:34 | W.PN.HOSP.TC ---
Today's Communication/Plan
-
dc to home
Assessment / Plan
Assessment / Plan
# Nausea vomiting likely gastroparesis flare
-Zofran every 6 hours for nausea vomiting
-Clear liquid diet has been advanced to regular which she is tolerating
-Dilaudid to be stopped
-Pt feels well and is requesting dc to home
# Hyponatremia/hypokalemia likely from nausea vomiting
-Sodium 134, potassium 3.1-->132/3.1
-given 20 Meq KCL and should recheck with PCP
Anemia
has been anemic before, should follow this up with PCP, consider IV Fe
# Elevated transaminase likely from dehydration/hxt of hepatic steatosis
-AST 91, ALT 41, ALK 136
-Continue with fluids
#Clonidine was ordered by her psych for sleep, denies HTN
-Clonidine continued
#Hypothyroidism--continue levothyroxine
#Type 1 diabetes mellitus with complications of neuropathy
-gabapentin
-Insulin pump continued
-Diabetic nurse practitioner consulted, but not available, follow up with her diabetic specialist
#Hyperlipidemia--continue atorvastatin
#Sleep disturbance
-Melatonin continued
#History of diastolic congestive heart failure
#History of depression
-Sertraline continued
#GERD--continue IV Protonix
#DVT prophylaxis--Lovenox
#CODE STATUS--full code
dc to home
see dictated note
Anticipated Discharge: Today
Subjective/Interval History
-
Date of Service: July 23, 2023
Feels well, no further N/V
Objective Data
-
Labs:
Laboratory Results
07/23/23
07:02
WBC 6.4
Hgb 9.4 L D
Hct 30.8 L
Plt Count 199 D
Sodium 132 L
Potassium 3.1 L
Chloride 98
Carbon Dioxide 29
BUN 11
Creatinine 0.5 L
Glucose 137 H
Calcium 8.0 L D
Total Bilirubin 0.3
AST 64 H
ALT 34
Alkaline Phosphatase 85
Vital Signs:
Vital Signs
Temp Pulse Resp BP Pulse Ox
98.1 F 63 16 108/75 100
07/23/23 07:00 07/23/23 07:00 07/23/23 07:00 07/23/23 07:00 07/23/23 07:00
I&O
07/22/23 07/23/23 07/24/23
06:59 06:59 06:59
Intake Total 240 / 240
Balance 240 / 240
Review of Systems
-
History Source: Patient and Coordinated Provider
Constitutional: Denies Fever
EENT: Reports No Symptoms Reported
Respiratory: Reports No Symptoms
Cardiac: Reports No Symptoms
Abdomen/GI: Reports No Symptoms; Denies Abdominal Pain, Nausea, Vomiting, Diarrhea or Pain
Genitourinary: Reports No Symptoms; Denies Dysuria, Frequency or Flank Pain
Skin: Reports No Symptoms
Neuro: Reports No Symptoms
Physical Exam
-
General: Well Developed, Well Nourished and No Apparent Distress
HEENT: Normocephalic, Atraumatic and Moist Mucous Membranes
Respiratory: Clear to Auscultation, Wheezes, Rales and Rhonchi
Cardiac: Regular Rhythm and S1/S2
GI: Soft, Nontender and Nondistended
Musculoskeletal: No Clubbing, No Cyanosis and No Edema
Skin: Warm and Dry
Neuro: Awake, Alert and Oriented
--- NOTE | 2023-07-23 16:30 | W.DS.TRANS ---
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
-
Discharge Instructions:
Sleep Apnea Risk Low
Discharge Diagnosis/Procedures intractable vomiting
Diet Diabetic, Carb Controlled
Activity No restrictions
Driving Restrictions As prior to admission
Bathing Restrictions None
Blood Work CBC, BMP, Fe/TIBC/Ferritin, UA with C&S in 1
week
Instructions:
Stand-Alone Forms:
Changes to Home Medications: No
Discharge Medications:
DC Medications w/original date entered in [employer]
gabapentin 300 mg capsule 300 mg PO TID Pain 01/17/23
levothyroxine 50 mcg tablet 50 mcg PO HS Thyroid 01/17/23
sertraline 100 mg tablet 100 mg PO HS Mental Health/Anxiety 01/17/23
spironolactone 50 mg tablet 100 mg PO HS Blood Pressure 01/17/23
atorvastatin 10 mg tablet 10 mg PO HS High Cholesterol 01/20/23
Patient's Own Insulin 0 unit SC .VIA PUMP Diabetes 06/14/23
clonidine HCl 0.2 mg tablet 0.2 mg PO HS Blood Pressure 06/14/23
gabapentin 100 mg capsule 200 mg PO HS Pain 06/14/23
melatonin 10 mg tablet 10 mg PO HS Sleep 06/14/23
pantoprazole 40 mg tablet,delayed release 40 mg PO DAILYPRN PRN gerd 06/14/23
acetaminophen 500 mg tablet (Tylenol Extra Strength) 1,000 mg PO BIDPRN PRN mild pain 07/22/23
dextroamphetamine-amphetamine 15 mg tablet 15 mg PO NOON 07/22/23
dextroamphetamine-amphetamine 15 mg tablet 30 mg PO DAILY 07/22/23
ibuprofen 200 mg tablet 400 mg PO DAILYPRN PRN mild pain 07/22/23
Home Medication Changes
Pending Results: No
== END 2023-07-23 16:10 | disposition home or self-care (01) | DRG 74 ==
LOC: 4 WEST ACU 14:07
PROVIDERS: Registered Nurse; ADMITTING PHYSICIAN Internal Medicine; EMERGENCY PHYSICIAN Emergency Medicine; FAMILY PHYSICIAN Nurse Practitioner Adult Health
DX: E10.43 Type 1 diabetes mellitus with diabetic autonomic (poly)neuropathy (principal); E87.1 Hypo-osmolality and hyponatremia; K31.84 Gastroparesis; Z79.4 Long term (current) use of insulin; E87.8 Other disorders of electrolyte and fluid balance, not elsewhere classified; E87.6 Hypokalemia; D50.9 Iron deficiency anemia, unspecified; D52.9 Folate deficiency anemia, unspecified; D53.9 Nutritional anemia, unspecified; E03.9 Hypothyroidism, unspecified; E78.00 Pure hypercholesterolemia, unspecified; K21.9 Gastro-esophageal reflux disease without esophagitis
CPT/HCPCS: 74022; 80053; 81003; 81015; 82248; 82962; 83036; 83690; 83735; 84703; 85025; 85027; 87071; 87086; 87186; 93005; 96361; 96374; 96375; 99284

== ENCOUNTER 2023-10-28 19:58 | Inpatient (IN) | payer BC, SELFPAY ==
[2023-10-28] VITALS (30 sets, daily range): BP systolic 126–171; BP diastolic 74–120; BMI 22.1; BMI 21.3
[2023-10-28 14:06] LABS: Glucose - Point of Care 234 mg/dl (70-99)
[2023-10-28 14:20] LABS: % Basophils 0.6 % (0-2); % Eosinophils 0.2 % (0-6); % Immature Granulocytes 0.3 % (0-0.5); % Lymphocytes 9.5 % (20.5-51.1); % Monocytes 3.9 % (1.7-9.3); % Neutrophils 85.5 % (42.2-75.2); Absolute Lymphocytes 0.6 10^3/uL (1.2-3.4); Absolute Monocytes 0.2 10^3/uL (0.1-0.6); Absolute Neutrophils 5.3 10^3/uL (1.4-6.5); Hematocrit 38.8 % (37.0-47.0); Hemoglobin 12.3 g/dL (12.0-16.0); Mean Corp Hgb Conc. 31.7 g/dL (33.0-37.0); Mean Corpuscular Hgb 23.9 pg (27.0-31.0); Mean Corpuscular Volume 75.3 fL (81.0-99.0); Mean Platelet Volume 9.8 fL (7.4-10.4); Nucleated Red Blood Cells % 0 %; Platelet Count 256 10^3/uL (130-400); Red Blood Cell Count 5.15 10^6/uL (4.20-5.40); Red Cell Dist. Width 23.2 % (11.5-14.5); White Blood Cell Count 6.2 10^3/uL (4.8-10.8)
[2023-10-28 14:39] LABS: HCG, Serum Qualitative Screen Negative
[2023-10-28 14:46] LABS: Anisocytosis 2+; Hypochromasia 2+
[2023-10-28 14:47] LABS: Normal RBC Morphology Yes; Polychromasia Slight
[2023-10-28 14:56] LABS: ALT (SGPT) 45 U/L (0-35); AST (SGOT) 120 U/L (14-36); Albumin 5.2 g/dl (3.5-5.0); Alkaline Phosphatase 152 U/L (38-126); Blood Urea Nitrogen 13 mg/dl (7-17); Carbon Dioxide 21 mmol/L (22-30); Chloride 93 mmol/L (98-107); Glucose 234 mg/dl (70-99); Lipase 40 U/L (23-300); Potassium 4.1 mmol/L (3.5-5.1); Sodium 137 mmol/L (135-145); Total Bilirubin 0.7 mg/dl (0.2-1.3); eGFR > 60.00
[2023-10-28] MEDS: NSS 1000 IV (15:28)
--- NOTE | 2023-10-28 15:29 | EDRN ---
provider currently at the pts bedside
--- NOTE | 2023-10-28 15:34 | ED.GENMED ---
History of Present Illness
<Asim Schultz MD, Resident - Last Filed: 10/28/23 21:09>
General
Chief Complaint: Abdominal Symptoms
Source: patient
Time Seen by Provider: 10/28/23 15:12
History of Present Illness
History of Present Illness:
38-year-old female with past medical history of type 1 diabetes on insulin, gastroparesis, hypertension, hypothyroidism presented to the ER complaining of nausea, vomiting, abdominal pain since 1 week. All the symptoms have worsened in the past
day, she was not able to eat anything, she ate some pizza last night but threw up. Patient reports that her insulin pump has failed on Tuesday10/21/2023 and she has been taking insulin shots since then after consulting her primary. Patient also
reports associated weakness and fatigue, and palpitations, dysuria. Patient denies chest pain, lightheadedness/dizziness, fevers, hematemesis, hematochezia, melena. No history of exposure to sick contacts, recent travel. Patient reports that she
smokes 4 cigarettes/day, and had last drink was yesterday night (whiskey). She used Zofran at home without much help. Her last LMP was 10/21/2023.
Past History
<Asim Schultz MD, Resident - Last Filed: 10/28/23 21:09>
Past History
ED Past Medical History: HTN, IDDM and Other (folate def., macrocytic anemia, hepatic steatosis)
ED Past Surgical History: Gynecological
Patient has exhibited threatening behavior?: No
PSI?: No
Social History
Tobacco: Smoker
Alcohol: Occasional (Last drink-yesterday, whiskey)
Drug: None
Personal:
Living: with family
Employment: Employed
Phy Exam
<Asim Schultz MD, Resident - Last Filed: 10/28/23 21:09>
Physical Exam
Physical Exam:
GEN: Appears dehydrated
Eyes: PERRLA, EOMs intact, no scleral icterus
HENT: NCAT, oral mucosa moist, no JVD, no cervical adenopathy.
Lungs: CTAB, no wheezes, rales, rhonchi, normal chest wall excursion
Cardiac: RRR, S1, S2+ no peripheral edema. Radial pulses 2+ bilat
Abdomen: S, diffuse tenderness, ND, BS +, no masses or hepatosplenomegaly
Neuro: AO x 3, no focal deficits to BUE/BLE, normal sensation throughout
MSK: Swelling to the L knee from recent fall.
Skin: No rashes, petechiae. Normal color, no pallor or jaundice.
Psych: Calm, cooperative, proper hygiene
Course
<[facility] Schultz MD, Resident - Last Filed: 10/28/23 21:09>
Orders/Labs/Results
Orders:
Orders
10/28/23 14:06
Test Result ONCE
10/28/23 14:11
Complete Blood Count/With Diff Urgent
Comprehensive Metabolic Panel Urgent
Creatine Phosphokinase Urgent
Comment: ADD ON
Glycohemoglobin (HgbA1c) Urgent
HCG, Serum Qualitative Screen Urgent
Comment: Notify provider if positive test present
Lipase Urgent
Magnesium Urgent
Comment: ADD ON
Phosphorus Urgent
Comment: ADD ON
10/28/23 Dinner
NPO
Allow oral meds: Yes
Allow clear liquids: Sips of Clears
10/28/23 15:28
0.9% Sodium Chloride 1000 ml [Nss] 1,000 ml IV BOLUS
10/28/23 15:58
HYDROmorphone [Dilaudid] 0.5 mg IV NOW STA
10/28/23 16:05
Ondansetron Injectable [Zofran] 4 mg IV NOW STA
10/28/23 16:06
B-Hydroxybutyrate Urgent
Venous Blood Gas Urgent
%Oxygen/Room Air: 96
10/28/23 18:28
Bedside Glucose- Treatment Q1H
IV Insert/Care/Rem.- Treatment PRN
10/28/23 18:32
Ondansetron Injectable [Zofran] 8 mg IV NOW STA
10/28/23 18:39
Reg Insulin 100 Units/100 ml [Novolin R Insulin Infusion] 100 units in 100 ml IV NOW
10/28/23 19:00
Dextrose 5%/0.9%Sodchl 1000 ml [D5/0.9% Sodium Chloride] 1,000 ml IV 200 mls/hr
10/28/23 19:04
Add On- LAB Urgent
Tests Added?: Magnesium, Phosphorus, CPK
10/28/23 19:19
Admit/Transfer Patient As Directed
Co-Sign Provider:
Level of Care: Inpatient admission
Assign to:: ICU
Physician / Group: Pranav
Diagnosis: DKA
Reason for Hospitalization: DKA
Expected length of stay greater than two midnights?: Yes
ELOS- Estimated Length of Stay in days: 3
I certify the patient meets the requirements for IP care: Yes
PRN Pain Medication Management As Directed
May give lesser potent ordered pain med per pt: Yes
preference::
Protocol:: Medication orders for pain may be administered in a
manner that supports deferring to patient preference
when the pt is:
- Requesting an ordered lesser potent pain medication.
Least to most potent pain medications are defined
as: acetaminophen < NSAID < tramadol < opioids
(morphine, oxycodone, hydromorphone).
- Requesting a lesser dose of the same medication IF
ORDERED.
- Requesting a less intrusive route of administration
if both routes are prescribed by the provider (PO <
IV).
10/28/23 19:21
Code Status As Directed
Resuscitation Status: Full Code
10/28/23 19:38
HYDROmorphone [Dilaudid] 0.5 mg IV NOW STA
10/28/23 19:44
Basic Metabolic Panel Q4
TSH Reflex To Free T4 Routine
Comment: ADDED TO SPECIMEN IN LAB
10/28/23 21:04
Acetaminophen [Tylenol] 650 mg PO Q4HPRN PRN
KCl 20 Meq/D5.45%Sodchl 1000ML [D5/0.45%NSS with KCL 20 MEQ] 20 meq in 1,000 ml IV 200 mls/hr
Ketorolac [Toradol] 10 mg IV Q6HPRN PRN
Prochlorperazine [Compazine] 5 mg IV Q6HPRN PRN
Reg Insulin 100 Units/100 ml [Novolin R Insulin Infusion] 100 units in 100 ml IV PER PROTOCOL
Currently infusing. Continue current dose and titrate:: Yes
10/28/23 21:04
Activity As Directed
Activity Level: Ambulate
With Assistance
Bedside Glucose Monitoring As Directed
Frequency: Q1H
Intake/ Output As Directed
Frequency: Per unit guidelines
Notify MD As Directed
Notify physician if: Nurse to contact provider when glucose reaches 250 to obtain orders for D5 0.45 NaCl
Orthostatic Vital Signs As Directed
Orthostatic VS Frequency: BID
Vital Signs As Directed
Frequency: Per unit guidelines
Weight As Directed
Frequency: Daily
O2 Therapy [RESP] Routine
Titrate/Wean O2 to maintain O2 sat greater than (%): 92
DX Deep Vein Thrombosis Video Routine
10/28/23 22:00
Clonidine [Catapres] 0.2 mg PO HS
Gabapentin [Neurontin] 300 mg PO TID
Levothyroxine [Synthroid] 50 mcg PO HS
Sertraline HCl [Zoloft] 100 mg PO HS
10/29/23 02:04
Complete Blood Count/With Diff IN AM
10/29/23 04:35
Basic Metabolic Panel Q4H
Magnesium IN AM
Phosphorus IN AM
10/29/23 06:00
EKG [Electrocardiogram (*1)] IN AM
Reason for Study: Chest Pain
10/29/23 08:00
Pantoprazole [Protonix IV] 40 mg IV DAILY
10/29/23 08:05
Basic Metabolic Panel Q4H
10/29/23 12:00
Basic Metabolic Panel Q4H
10/29/23 16:00
Basic Metabolic Panel Q4H
10/29/23 18:00
Enoxaparin Sodium [Lovenox] 40 mg SC QPM
Abnormal Lab Results
10/28/23 10/28/23 10/28/23
14:04 14:11 16:06
MCV 75.3 L fL
(81.0-99.0)
MCH 23.9 L pg
(27.0-31.0)
MCHC 31.7 L g/dL
(33.0-37.0)
RDW 23.2 H %
(11.5-14.5)
Absolute Lymphs (auto) 0.6 L 10^3/uL
(1.2-3.4)
Neutrophils % 85.5 H %
(42.2-75.2)
Lymphocytes % 9.5 L %
(20.5-51.1)
VBG pO2 56 H mmHg
(30-50)
VBG HCO3 20.0 L mmol/L
(22-27)
Potassium
Chloride 93 L mmol/L
(98-107)
Carbon Dioxide 21 L mmol/L
(22-30)
Creatinine
Glucose 234 H mg/dl
(70-99)
Calcium 11.0 H mg/dl
(8.4-10.2)
AST 120 H U/L
(14-36)
ALT 45 H U/L
(0-35)
Alkaline Phosphatase 152 H U/L
(38-126)
Albumin 5.2 H g/dl
(3.5-5.0)
TSH (Reflex)
B-Hydroxybutyrate > 9 H mmol/L
(0.02-0.27)
POC Glucose 234 H mg/dl
(70-99)
10/28/23 10/28/23
18:39 19:44
MCV
MCH
MCHC
RDW
Absolute Lymphs (auto)
Neutrophils %
Lymphocytes %
VBG pO2
VBG HCO3
Potassium 3.3 L mmol/L
(3.5-5.1)
Chloride
Carbon Dioxide 15 L mmol/L
(22-30)
Creatinine 0.5 L mg/dL
(0.6-1.0)
Glucose 355 H mg/dl
(7099)
Calcium
AST
ALT
Alkaline Phosphatase
Albumin
TSH (Reflex) 0.17 L uIU/ml
(0.47-4.68)
B-Hydroxybutyrate
POC Glucose 202 H mg/dl
(70-99)
10/28/23 14:11
10/28/23 19:44
Vital Signs
Initial and Last Documented VS:
Initial Vital Signs
Temp Pulse Resp BP Pulse Ox
98.4 F 111 18 132/74 100
10/28/23 14:01 10/28/23 14:01 10/28/23 14:01 10/28/23 14:01 10/28/23 14:01
Last Documented Vital Signs
Temp Pulse Resp BP Pulse Ox
98.8 F 100 19 133/87 99
10/29/23 11:00 10/29/23 09:45 10/29/23 09:45 10/29/23 09:00 10/29/23 09:45
Darrellt;Daryl Beth DO - Last Filed: 10/29/23 11:51>
Orders/Labs/Results
Orders:
Orders
10/28/23 14:06
Test Result ONCE
10/28/23 14:11
Complete Blood Count/With Diff Urgent
Comprehensive Metabolic Panel Urgent
Creatine Phosphokinase Urgent
Comment: ADD ON
Glycohemoglobin (HgbA1c) Urgent
HCG, Serum Qualitative Screen Urgent
Comment: Notify provider if positive test present
Lipase Urgent
Magnesium Urgent
Comment: ADD ON
Phosphorus Urgent
Comment: ADD ON
10/28/23 Dinner
NPO
Allow oral meds: Yes
Allow clear liquids: Sips of Clears
10/28/23 15:28
0.9% Sodium Chloride 1000 ml [Nss] 1,000 ml IV BOLUS
10/28/23 15:58
HYDROmorphone [Dilaudid] 0.5 mg IV NOW STA
10/28/23 16:05
Ondansetron Injectable [Zofran] 4 mg IV NOW STA
10/28/23 16:06
B-Hydroxybutyrate Urgent
Venous Blood Gas Urgent
%Oxygen/Room Air: 96
10/28/23 18:28
Bedside Glucose- Treatment Q1H
IV Insert/Care/Rem.- Treatment PRN
10/28/23 18:32
Ondansetron Injectable [Zofran] 8 mg IV NOW STA
10/28/23 18:39
Reg Insulin 100 Units/100 ml [Novolin R Insulin Infusion] 100 units in 100 ml IV NOW
10/28/23 19:00
Dextrose 5%/0.9%Sodchl 1000 ml [D5/0.9% Sodium Chloride] 1,000 ml IV 200 mls/hr
10/28/23 19:04
Add On- LAB Urgent
Tests Added?: Magnesium, Phosphorus, CPK
10/28/23 19:19
Admit/Transfer Patient As Directed
Co-Sign Provider:
Level of Care: Inpatient admission
Assign to:: ICU
Physician / Group: Pranav
Diagnosis: DKA
Reason for Hospitalization: DKA
Expected length of stay greater than two midnights?: Yes
ELOS- Estimated Length of Stay in days: 3
I certify the patient meets the requirements for IP care: Yes
PRN Pain Medication Management As Directed
May give lesser potent ordered pain med per pt: Yes
preference::
Protocol:: Medication orders for pain may be administered in a
manner that supports deferring to patient preference
when the pt is:
- Requesting an ordered lesser potent pain medication.
Least to most potent pain medications are defined
as: acetaminophen < NSAID < tramadol < opioids
(morphine, oxycodone, hydromorphone).
- Requesting a lesser dose of the same medication IF
ORDERED.
- Requesting a less intrusive route of administration
if both routes are prescribed by the provider (PO <
IV).
10/28/23 19:21
Code Status As Directed
Resuscitation Status: Full Code
10/28/23 19:38
HYDROmorphone [Dilaudid] 0.5 mg IV NOW STA
10/28/23 19:44
Basic Metabolic Panel Q4
TSH Reflex To Free T4 Routine
Comment: ADDED TO SPECIMEN IN LAB
10/28/23 21:04
Acetaminophen [Tylenol] 650 mg PO Q4HPRN PRN
KCl 20 Meq/D5.45%Sodchl 1000ML [D5/0.45%NSS with KCL 20 MEQ] 20 meq in 1,000 ml IV 200 mls/hr
Ketorolac [Toradol] 10 mg IV Q6HPRN PRN
Prochlorperazine [Compazine] 5 mg IV Q6HPRN PRN
Reg Insulin 100 Units/100 ml [Novolin R Insulin Infusion] 100 units in 100 ml IV PER PROTOCOL
Currently infusing. Continue current dose and titrate:: Yes
10/28/23 21:04
Activity As Directed
Activity Level: Ambulate
With Assistance
Bedside Glucose Monitoring As Directed
Frequency: Q1H
Intake/ Output As Directed
Frequency: Per unit guidelines
Notify MD As Directed
Notify physician if: Nurse to contact provider when glucose reaches 250 to obtain orders for D5 0.45 NaCl
Orthostatic Vital Signs As Directed
Orthostatic VS Frequency: BID
Vital Signs As Directed
Frequency: Per unit guidelines
Weight As Directed
Frequency: Daily
O2 Therapy [RESP] Routine
Titrate/Wean O2 to maintain O2 sat greater than (%): 92
DX Deep Vein Thrombosis Video Routine
10/28/23 22:00
Clonidine [Catapres] 0.2 mg PO HS
Gabapentin [Neurontin] 300 mg PO TID
Levothyroxine [Synthroid] 50 mcg PO HS
Sertraline HCl [Zoloft] 100 mg PO HS
10/29/23 02:04
Complete Blood Count/With Diff IN AM
10/29/23 04:35
Basic Metabolic Panel Q4H
Magnesium IN AM
Phosphorus IN AM
10/29/23 06:00
EKG [Electrocardiogram (*1)] IN AM
Reason for Study: Chest Pain
10/29/23 08:00
Pantoprazole [Protonix IV] 40 mg IV DAILY
10/29/23 08:05
Basic Metabolic Panel Q4H
10/29/23 12:00
Basic Metabolic Panel Q4H
10/29/23 16:00
Basic Metabolic Panel Q4H
10/29/23 18:00
Enoxaparin Sodium [Lovenox] 40 mg SC QPM
Abnormal Lab Results
10/28/23 10/28/23 10/28/23
14:04 14:11 16:06
MCV 75.3 L fL
(81.0-99.0)
MCH 23.9 L pg
(27.0-31.0)
MCHC 31.7 L g/dL
(33.0-37.0)
RDW 23.2 H %
(11.5-14.5)
Absolute Lymphs (auto) 0.6 L 10^3/uL
(1.2-3.4)
Neutrophils % 85.5 H %
(42.2-75.2)
Lymphocytes % 9.5 L %
(20.5-51.1)
VBG pO2 56 H mmHg
(30-50)
VBG HCO3 20.0 L mmol/L
(22-27)
Potassium
Chloride 93 L mmol/L
(98-107)
Carbon Dioxide 21 L mmol/L
(22-30)
Creatinine
Glucose 234 H mg/dl
(70-99)
Calcium 11.0 H mg/dl
(8.4-10.2)
AST 120 H U/L
(14-36)
ALT 45 H U/L
(0-35)
Alkaline Phosphatase 152 H U/L
(38-126)
Albumin 5.2 H g/dl
(3.5-5.0)
TSH (Reflex)
B-Hydroxybutyrate > 9 H mmol/L
(0.02-0.27)
POC Glucose 234 H mg/dl
(70-99)
10/28/23 10/28/23
18:39 19:44
MCV
MCH
MCHC
RDW
Absolute Lymphs (auto)
Neutrophils %
Lymphocytes %
VBG pO2
VBG HCO3
Potassium 3.3 L mmol/L
(3.5-5.1)
Chloride
Carbon Dioxide 15 L mmol/L
(22-30)
Creatinine 0.5 L mg/dL
(0.6-1.0)
Glucose 355 H mg/dl
(70-99)
Calcium
AST
ALT
Alkaline Phosphatase
Albumin
TSH (Reflex) 0.17 L uIU/ml
(0.47-4.68)
B-Hydroxybutyrate
POC Glucose 202 H mg/dl
(70-99)
10/28/23 14:11
10/28/23 19:44
Vital Signs
Initial and Last Documented VS:
Initial Vital Signs
Temp Pulse Resp BP Pulse Ox
98.4 F 111 18 132/74 100
10/28/23 14:01 10/28/23 14:01 10/28/23 14:01 10/28/23 14:01 10/28/23 14:01
Last Documented Vital Signs
Temp Pulse Resp BP Pulse Ox
98.8 F 100 19 133/87 99
10/29/23 11:00 10/29/23 09:45 10/29/23 09:45 10/29/23 09:00 10/29/23 09:45
<Asim Schultz MD, Resident - Last Filed: 10/28/23 21:09>
MDM/Problems Addressed
Differential Diagnosis Includes:
DKA, gastroparesis, gastroenteritis.
MDM/Problems Addressed:
Patient is hyperglycemic blood glucose at 234.
Transaminitis possibly from dehydration versus prior hepatic steatosis versus alcoholism.
Patient started on IV fluids
Symptomatic control�antiemetics, pain control with Dilaudid.
Beta hydroxybutyrate >9.
Patient is not clinically improving
Patient may need hospital admission.
Chronic conditions affecting care: DM
<Asim Schultz MD, Resident - Last Filed: 10/28/23 21:09>
*Critical Care Note
Total Time (30-74mins, 75-104mins- exclusive of procedures): Not Applicable
ED Attending Note
<Asim Schultz MD, Resident - Last Filed: 10/28/23 21:09>
-
Portions of this chart may have been created with voice recognition software.� Occasional wrong word or��sound alike� substitutions may have occurred due to the inherent limitations of voice recognition software.
<Daryl Beth, - Last Filed: 10/29/23 11:51>
ED Attending Note
Patient seen and examined by attending physician: Yes
I performed a history and physical exam of patient and discussed management with resident, I reviewed resident's note and agree with documented findings and plan of care.: Yes
ED Attending Note:
Patient presents with nausea and vomiting. She has a history of gastroparesis as well as brittle diabetes. Did have an issue with her insulin pump about a week ago where her line was occluded. She changed the line her pump has been functioning
normally for the past 4 days or so. She has diffuse abdominal pain. She denies any fever.
General: Awake, Alert, Oriented X3. No acute distress.
Vitals: unremarkable
Head: Atraumatic
Eyes: Pupils equal, EOMI
Throat: Airway intact, no exudates dry mucosa
Neck: Trachea midline
Lungs: Clear and equal b/l
Heart: Regular rate, no murmurs
Abd: Soft, mild diffusely tender, No pulsatile mass
Neuro: Nonfocal
Skin: Warm, dry, no rash, facial flushing
Extremities: pulses equal b/l, no edema
Initial labs show normal white count, normal hemoglobin. Her chemistry show a anion gap of 21. Her glucose is only mildly elevated at 234. LFTs are mildly elevated in a nonspecific fashion. She is not . Will add on a beta
hydroxybutyrate and a VBG. Patient will receive fluid resuscitation
VBG is normal. BHB is >9. Will start insulin drip, admit to ICU for DKA
Critical care time: 34 min,
Critical care statement: A total of 34 minutes of critical care time was provided for this patient. This includes management of unstable vital signs, evaluation of the patient at bedside, reviewing the patient's pertinent medical records, discussion
with consultants, review of old EKGs and review of pertinent medical records. This time with separate from time utilized to perform the aforementioned documented procedures
Discharge Plan
Departure
Patient Disposition: Admit
Date of Disposition: 10/28/23
Time of Disposition: 18:34
Presentation/result/management discussed w/ accepting MD/DO: Hospitalist
Discharge Problem:
Type 1 diabetes, Hyperglycemia, Transaminitis
Interventions
Interventions:
*Risk Screen - Suicide Last Done: 10/28/23 14:01
*General Assessment Last Done: 10/28/23 14:01
*Neglect/Abuse Screening Last Done: 10/28/23 14:01
ED- Fall Risk Assessment Last Done: 10/28/23 15:25
*ED COVID-19 Vaccine History Last Done: 10/28/23 15:25
GP-Pnbukr-Cxnwpftbig Assessment Last Done: 10/28/23 15:25
[2023-10-28] MEDS: ZOFRAN 4 MG IV (16:07)
[2023-10-28] MEDS: DILAUDID 0.5 MG IV ×2 (16:08→19:42)
--- NOTE | 2023-10-28 16:25 | EDRN ---
this RN entered the pts room to draw labs, this RN noticed that left wrist PIV was red at the site, with edema and pain, this RN removed the PIV and applied manual pressure, incident report will be filed, new LAC #24 PIV placed, will continue to
monitor the pt closely
[2023-10-28 16:26] LABS: Venous Blood Gas B.E. -5.2 mmol/L (-4 to +4); Venous Blood Gas O2 Sat % 87.1 %; Venous Blood Gas pCO2 37 mmHg (35-48); Venous Blood Gas pH 7.34 (7.32-7.43); Venous Blood Gas pO2 56 mmHg (30-50)
[2023-10-28 17:20] LABS: B-Hydroxybutyrate > 9 mmol/L (0.02-0.27)
--- NOTE | 2023-10-28 18:16 | EDRN ---
provider currently at the pts bedside
[2023-10-28 18:41] LABS: Glucose - Point of Care 202 mg/dl (70-99)
[2023-10-28] MEDS: NOVOLIN R INSULIN INFUSION 100 IV (18:44)
[2023-10-28] MEDS: ZOFRAN 8 MG IV (18:49)
[2023-10-28] MEDS: D5/0.9% SODIUM CHLORIDE 1000 IV (18:53)
--- NOTE | 2023-10-28 19:30 | HPS.HSE ---
Family Physician
-
Family Physician: CITLALI Gomez
Chief Complaint
-
N/V
History of Present Illness
Patient is a 38y F with PMH significant for DM-I who presents to ED complaining of intractable N/V and abdominal pain. Patient states that she started with N/V a few days ago and her symptoms have steadily increased since that time. She states
that her symptoms were severe today and she estimates about 10 -15 episodes of non-bloody emesis. Patient reports diffuse abdominal pain today and notes that her sugars at home today have been > 100. Previously they had been well-controlled in the
100s. Patient notes that she has not been able to tolerate PO intake for the past few days.
Patient denies any diarrhea, urinary symptoms, fevers / chills.
No recent medication changes.
Patient was last admitted here in July with similar symptoms. She also had an elevated anion gap acidosis on that admission (16).
Medical History
Past Medical History
Past Medical History: Reports Other
Additional Past Medical History:
Lupus
Hepatic steatosis
DM-I
Peripheral Neuropathy
Gastroparesis
Depression
Vitamin D deficiency
Folate deficiency anemia
Hypothyroidism
Hypertension
History of heart failure
Past Surgical History: Reports Other
Additional Past Surgical History:
Right femoral neck status post screw fixation
Social History
Tobacco: Non-smoker
Alcohol: None
Drug: None
Family History
Family History: Not pertinent
Allergies / Home Medications
Allergies reflects when Allergies were last updated in [facility].
Home Medications with original date entered in [facility]
Allergy/Medication List:
Allergies
Allergy/AdvReac Type Severity Reaction Status Date / Time
No Known Allergies Allergy Verified 10/28/23 14:00
Home Medications
gabapentin 300 mg capsule 300 mg PO TID Pain 10/30/23
levothyroxine 50 mcg tablet 50 mcg PO HS Thyroid 01/17/23
sertraline 100 mg tablet 100 mg PO HS Mental Health/Anxiety 01/17/23
atorvastatin 10 mg tablet 10 mg PO HS High Cholesterol 01/20/23
Patient's Own Insulin 0 unit SC .VIA PUMP Diabetes 06/14/23
clonidine HCl 0.2 mg tablet 0.2 mg PO HS Blood Pressure 06/14/23
gabapentin 100 mg capsule 200 mg PO HS Pain 06/14/23
melatonin 10 mg tablet 10 mg PO HS Sleep 06/14/23
pantoprazole 40 mg tablet,delayed release 40 mg PO DAILYPRN PRN gerd 06/14/23
acetaminophen 500 mg tablet (Tylenol Extra Strength) 1,000 mg PO BIDPRN PRN mild pain 07/22/23
dextroamphetamine-amphetamine 15 mg tablet 15 mg PO NOON 07/22/23
dextroamphetamine-amphetamine 15 mg tablet 30 mg PO DAILY 07/22/23
ibuprofen 200 mg tablet 400 mg PO DAILYPRN PRN mild pain 07/22/23
Review of Systems
-
History Source: Patient
A 12 point ROS was completed and negative except as noted: Yes
Constitutional: Reports Fatigue; Denies Fever or Chills
Respiratory: Denies Cough or Trouble Breathing
Cardiac: Denies Chest Pain or Palpitations
Abdomen/GI: Reports Abdominal Pain, Nausea and Vomiting; Denies Diarrhea, Constipated or Bloody Stools
: Reports Other (Decreased urination); Denies Dysuria, Frequency or Incontinence
Musculoskeletal: Denies Joint Swelling or Edema
Neurological: Denies Dizzy or Headache
Psych: Denies Depression or Anxiety
Physical Exam
Vital Signs
Vital Signs
Temp Pulse Resp BP Pulse Ox
98.5 F 62 16 133/101 98
10/28/23 16:37 10/28/23 17:45 10/28/23 17:45 10/28/23 18:40 10/28/23 18:40
Physical Exam
General: Other (Ill-appearing 38y F in moderte distress due to nausea / abdominal pain.)
HEENT: Other (Dry MM. Neck supple.)
Respiratory: Clear; No Wheezes, Rales or Rhonchi
Cardiac: S1/S2 and Tachycardia; No Murmur
GI: Soft, Non Distended, Normal Bowel Sounds and Other (Diffusely tender.)
Musculoskeletal: No Clubbing, No Cyanosis and No Edema
Neuro: AO x 3
Laboratory Results
-
10/28/23 14:11
Laboratory Results
Total Bilirubin 0.7 mg/dl (0.2-1.3) 10/28/23 14:11
AST 120 U/L (14-36) H 10/28/23 14:11
ALT 45 U/L (0-35) H 10/28/23 14:11
Alkaline Phosphatase 152 U/L (38-126) H 10/28/23 14:11
Lipase 40 U/L (23-300) 10/28/23 14:11
Impression/Plan
-
A/P: Patient is a 38y F with PMH significant for DM-I and gastroparesis who presents to ED complaining of intractable N/V and abdominal pain.
DKA
DM-I, Uncontrolled
Gastroparesis secondary to the above
- Admit to ICU for further evaluation and treatment.
- Anion gap metabolic acidosis (23) and prior history of similar presentations.
- IV insulin and follow until anion gap normalized.
- IVF support including glucose / potassium supplementation.
- Follow labs q4h and adjust treatment as needed.
- Resume usual insulin pump / CGM tandem once anion gap normalized.
- Follow for clinical improvement.
- Supportive care / antiemetics / IVFs.
M[place]AN[place]
Abnormal LFTs
- Check CPK given predominance of AST.
- Follow for changes.
Benign Hypertension
- Stable. Continue clonidine with holding parameters.
Hypothyroidism
- Stable. Continue current T4 supplementation.
- Update TFTs.
Peripheral Neuropathy
- Stable. Continue gabapentin.
History of HFpEF
- No current evidence of volume overload.
- Patient is no longer on diuretic regimen as an outpatient.
- Monitor I/Os, weights, etc.
- IVF support as noted above.
ADHD
- Would hold amphetamine during acute inpatient stay.
DVT Prophylaxis: Lovenox
Code Status: Full
[2023-10-28 19:41] LABS: Creatine Phosphokinase 38 U/L (30-135); Magnesium 1.6 mg/dl (1.6-2.3); Phosphorus 3.5 mg/dl (2.5-4.5)
[2023-10-28 20:05] LABS: Glucose - Point of Care 243 mg/dl (70-99)
[2023-10-28 20:08] LABS: Blood Urea Nitrogen 10 mg/dl (7-17); Carbon Dioxide 15 mmol/L (22-30); Chloride 103 mmol/L (98-107); Estimated Creatinine Clearance > 125 ml/min; Glucose 355 mg/dl (70-99); Potassium 3.3 mmol/L (3.5-5.1); Sodium 137 mmol/L (135-145); eGFR > 60.00
[2023-10-28 21:43] LABS: Glucose - Point of Care 214 mg/dl (70-99)
[2023-10-28] MEDS: COMPAZINE 5 MG IV (22:09)
[2023-10-28] MEDS: D5/0.45%NSS with KCL 20 MEQ 1000 IV (22:20)
[2023-10-28 22:33] LABS: Glucose - Point of Care 253 mg/dl (70-99)
[2023-10-28 22:42] LABS: TSH Reflex To Free T4 0.17 uIU/ml (0.47-4.68)
[2023-10-28] MEDS: CATAPRES PO (22:56)
[2023-10-28] MEDS: NEURONTIN PO (22:56)
[2023-10-28 23:25] LABS: Glucose - Point of Care 298 mg/dl (70-99)
--- NOTE | 2023-10-28 23:46 | PTCARENOTE ---
: Received patient from ED RN on insulin gtt at 6.5 units. The patient ambulated from stretcher to ICU bed. Patient complained of feeling nauseated. Had brown emesis = 50 mL. Cool wash cloth placed on the patient's neck and face. Pt's AAOx3
and tearful. Sinus tachy on the monitor with HR 110-120s. Skin is pale. Palpable pulses. Clear breath sounds. SpO2 at 95% on room air. Abdomen is soft and nontender. Compazine administered for nausea. Pt continues with heaving. Right wrist 22 g and
left AC 24 g IV are patent.
Patient declined medications at this time due to nausea/heaving. D51/2NS with KCL 20 meq at 200ml/hr.
[2023-10-29] VITALS (19 sets, daily range): BP systolic 98–179; BP diastolic 59–104; BMI 21.9
[2023-10-29 00:24] LABS: Glucose - Point of Care 283 mg/dl (70-99)
--- NOTE | 2023-10-29 00:25 | PTCARENOTE ---
Patient reassessed. Remains sinus tachy on the monitor. HR fluctuating between 110-120s. Insulin gtt at 4 units/hr (4 ml/hr). Pstient is resting peacefully. RR 20 with unlabored and even breathing. labs drawn and sent.
[2023-10-29 01:13] LABS: Glucose - Point of Care 279 mg/dl (70-99)
[2023-10-29 02:12] LABS: Glucose - Point of Care 269 mg/dl (70-99)
[2023-10-29 02:12] LABS: % Basophils 0.3 % (0-2); % Immature Granulocytes 0.3 % (0-0.5); % Lymphocytes 9.9 % (20.5-51.1); % Monocytes 9.3 % (1.7-9.3); % Neutrophils 80.2 % (42.2-75.2); Absolute Monocytes 0.9 10^3/uL (0.1-0.6); Absolute Neutrophils 7.8 10^3/uL (1.4-6.5); Hemoglobin 11.1 g/dL (12.0-16.0); Mean Corp Hgb Conc. 31.7 g/dL (33.0-37.0); Mean Corpuscular Hgb 24.3 pg (27.0-31.0); Mean Corpuscular Volume 76.8 fL (81.0-99.0); Mean Platelet Volume 9.8 fL (7.4-10.4); Nucleated Red Blood Cells % 0 %; Platelet Count 225 10^3/uL (130-400); Red Blood Cell Count 4.56 10^6/uL (4.20-5.40); Red Cell Dist. Width 23.3 % (11.5-14.5); White Blood Cell Count 9.8 10^3/uL (4.8-10.8)
[2023-10-29 02:20] LABS: INR 1.17; PT 14.7 Sec (11.4-14.6)
[2023-10-29 02:21] LABS: APTT 28.2 Sec (23.4-35.0)
[2023-10-29 03:17] LABS: Blood Urea Nitrogen 9 mg/dl (7-17); Calcium 9.3 mg/dl (8.4-10.2); Carbon Dioxide 17 mmol/L (22-30); Chloride 103 mmol/L (98-107); Estimated Creatinine Clearance > 125 ml/min; Glucose 287 mg/dl (70-99); Potassium 3.7 mmol/L (3.5-5.1); Sodium 136 mmol/L (135-145); eGFR > 60.00
[2023-10-29 03:18] LABS: Glucose - Point of Care 282 mg/dl (70-99)
[2023-10-29] MEDS: D5/0.45%NSS with KCL 20 MEQ 1000 IV ×3 (03:33→14:45)
[2023-10-29] MEDS: TORADOL 10 MG IV ×3 (03:41→19:08)
[2023-10-29] MEDS: ZOFRAN 4 MG IV ×2 (03:41→15:29)
[2023-10-29] MEDS: TUMS 2 TABLET PO (03:48)
[2023-10-29 04:12] LABS: Glucose - Point of Care 237 mg/dl (70-99)
--- NOTE | 2023-10-29 04:58 | PTCARENOTE ---
Patient reassessed. Insulin gtt as documented. Pt's BG 237. RESEARCH ANIMAL ATTENDANT made aware. Plan to continue with current IVF. Labs drawn and sent.
[2023-10-29 05:19] LABS: Magnesium 1.5 mg/dl (1.6-2.3); Phosphorus 2.4 mg/dl (2.5-4.5)
[2023-10-29 05:20] LABS: Glucose - Point of Care 258 mg/dl (70-99)
[2023-10-29 05:45] LABS: Blood Urea Nitrogen 9 mg/dl (7-17); Calcium 9.1 mg/dl (8.4-10.2); Carbon Dioxide 17 mmol/L (22-30); Chloride 103 mmol/L (98-107); Estimated Creatinine Clearance > 125 ml/min; Glucose 270 mg/dl (70-99); Potassium 3.7 mmol/L (3.5-5.1); Sodium 134 mmol/L (135-145); eGFR > 60.00
--- NOTE | 2023-10-29 05:58 | CON.PUL ---
Consultation
Consultation Request
Date/Time Consultation Requested: 10/28
Date/Time Consultation Performed: 10/28
Reason for Consultation: Critical care
Medical History
-
History of Present Illness:
History obtained from the patient and reviewing records. Patient is a 38-year-old female with insulin-dependent diabetes, insulin pump who has history of diabetes, heart failure, hypothyroidism who presents with about 1 week of nausea, emesis. Her
insulin pump malfunction but she was not aware of it. When she became aware, she was taken insulin shots per primary. Because of persistent nausea/emesis, she brought herself into [facility] where upon arrival, afebrile, pulse 111,
breathing 18, blood pressure 132/74, 100% saturation. She was found to have elevated blood sugars with elevated anion gap. She was admitted to ICU for management of DKA
Of note, she last had emesis last night. She has had abdominal pain which she attributes to her emesis. Denies any blood in her urine or stool, falls, syncope, fevers, diarrhea. She lives at home with her family. She is under a lot of stress as
both of her children have chronic medical issues
.
PMH: DM type I on insulin pump, hypertension, history of DKA, peripheral neuropathy, hyperlipidemia, HFpEF, hepatic steatosis history of alcohol abuse, hypothyroidism, colitis/GERD, depression, former tobacco use disorder. History of ,
right femoral neck ORIF
Past Medical History
Past Medical History: None (See above)
Past Surgical History: None (See above)
Social History
Tobacco: Smoker (3 to 4 cigarettes a day)
Alcohol: Occasional (Records suggest history of alcohol abuse. Patient apparently had whiskey the night before admission)
Drug: Marijuana (Yes)
Living: With Family (Lives with father and children)
Employment: Not Employed
Family History
Family History: Other (Father with ankylosing spondylitis, mother with lupus. She has 2 children, 1 who is disabled, another with Sanfiilippo syndrome. Sister with addiction)
Allergies / Home Medications
Allergies
Allergy/AdvReac Type Severity Reaction Status Date / Time
No Known Allergies Allergy Verified 10/28/23 14:00
Home Medications
�Medication �Instructions �Recorded �Confirmed �Last Taken �Type
gabapentin 300 mg capsule 300 mg PO TID Pain 01/17/23 10/28/23 3 Days Ago History
~10/25/23
levothyroxine 50 mcg tablet 50 mcg PO HS Thyroid 01/17/23 10/28/23 3 Days Ago History
~10/25/23
sertraline 100 mg tablet 100 mg PO HS Mental Health/Anxiety 01/17/23 10/28/23 3 Days Ago History
~10/25/23
atorvastatin 10 mg tablet 10 mg PO HS High Cholesterol 01/20/23 10/28/23 3 Days Ago History
~10/25/23
Patient's Own Insulin 0 unit SC .VIA PUMP Diabetes 06/14/23 10/28/23 06/14/23 History
clonidine HCl 0.2 mg tablet 0.2 mg PO HS Blood Pressure 06/14/23 10/28/23 3 Days Ago History
~10/25/23
gabapentin 100 mg capsule 200 mg PO HS Pain 06/14/23 10/28/23 3 Days Ago History
~10/25/23
melatonin 10 mg tablet 10 mg PO HS Sleep 06/14/23 10/28/23 3 Days Ago History
~10/25/23
pantoprazole 40 mg tablet,delayed 40 mg PO DAILYPRN PRN gerd 06/14/23 10/28/23 06/14/23 History
release
acetaminophen 500 mg tablet 1,000 mg PO BIDPRN PRN mild pain 07/22/23 10/28/23 07/22/23 History
(Tylenol Extra Strength)
dextroamphetamine-amphetamine 15 15 mg PO NOON 07/22/23 10/28/23 3 Days Ago History
mg tablet ~10/25/23
dextroamphetamine-amphetamine 15 30 mg PO DAILY 07/22/23 10/28/23 3 Days Ago History
mg tablet ~10/25/23
ibuprofen 200 mg tablet 400 mg PO DAILYPRN PRN mild pain 07/22/23 10/28/23 07/22/23 History
Review of Systems
-
All other systems: Negative unless noted
Vitals / Labs / Diagnostic Testing
Vital Signs
Temp Pulse Resp BP Pulse Ox
99.8 F 127 21 145/94 96
10/29/23 03:18 10/29/23 01:45 10/29/23 01:45 10/29/23 01:02 10/29/23 01:45
Lab Data
10/29/23 02:04
Laboratory Results
10/29/23
02:03
PT 14.7 H
INR 1.17
APTT 28.2
Diagnostic Testing:
Physical Exam
-
HEENT: Normocephalic and Anicteric
Cardiovascular: S1/S2, Regular Rhythm, Murmur (n), Rub (n) and Peripheral Edema (n)
Respiratory: Wheeze (n), Rales (n) and Rhonchi (n)
GI: Soft, Non Distended and Tender (Midepigastric)
Neurology: Awake, Alert and No Motor Deficits
Skin: Other (No clubbing, no cyanosis)
General: Comfortable (Depressed affect)
Assessment
-
38-year-old female with history of insulin-dependent diabetes, history of DKA in the past, hypertension, hyperlipidemia, heart failure with preserved EF presents with acute DKA secondary to insulin pump malfunction according to patient
Acute DKA
anion gap 16, blood sugars greater than 300
Nausea/emesis x 3 days
Insulin-dependent diabetes
Insulin pump
Hypomagnesemia
Sinus tachycardia
Conditions present prior to admission
Hypertension/hyperlipidemia
History of heart failure
Anemia
Hypothyroidism
History of colitis
Questionable alcohol abuse
Per records
Abnormal LFTs in the past
Daily marijuana use
Ongoing tobacco use, 4 cigarettes a day
Increased stress at home
Daughter with disability
Son with Maritza syndrome
Plan/recommendations
At this time, patient appears to be comfortable
Abdominal pain on exam noted. Patient attributes this to frequent emesis over the past few days, unable to maintain any p.o. intake
Anion gap 16 on admission. Presently has normalized
Remains on insulin drip
Moving forward
Continue with IV insulin, IV fluids
Abdominal pain is noted
Patient has history of transaminitis in the past
Ice chips, follow for further emesis
Continue with IV Protonix for now
Patient with history of anemia. Follow hemoglobin. Presently stable
EKG with sinus tachycardia, nonspecific changes
IV fluids
Replete electrolytes
Records suggest history of alcohol abuse
To me patient denied alcohol use but per records had whiskey last p.m.
Follow-up for DTs
Diabetic nurse practitioner consult has been placed
Reviewed with critical care nursing
We will follow
[2023-10-29 06:10] LABS: Glucose - Point of Care 243 mg/dl (70-99)
[2023-10-29] MEDS: MAGNESIUM SULFATE 50 IV (06:44)
--- NOTE | 2023-10-29 07:10 | PTCARENOTE ---
vitals filed from previous shift.
[2023-10-29 07:11] LABS: Glucose - Point of Care 218 mg/dl (70-99)
--- NOTE | 2023-10-29 08:03 | W.PN.HOSP.TC ---
Today's Communication/Plan
-
continue IV insulin and monitor AG q 4 hours
patient's will need to knot picker cloth her insulin and bring in to refill pump
1L IVF bolus now
Assessment / Plan
Assessment / Plan
A/P: Patient is a 38y F with PMH significant for DM-I and gastroparesis who presents to ED complaining of intractable N/V and abdominal pain. Patient reports that her insulin pump has failed on Tuesday10/21/2023 and she has been taking insulin
shots since then after consulting her primary
DKA
DM-I, Uncontrolled
Gastroparesis secondary to the above
- Admit to ICU for further evaluation and treatment.
- Anion gap metabolic acidosis (23) and prior history of similar presentations.
- IV insulin and follow until anion gap normalized. Gap this AM is 14 - closing
- will give another L of fluid this morning (received 1L bolus in ER), remains tachycardic, may be contributing to nausea
- IVF support including glucose / potassium supplementation. 1/2 NS
- Follow labs q4h and adjust treatment as needed.
- Resume usual insulin pump / CGM tandem once anion gap normalized. --> patient will ask to knot picker cloth from pharmacy and bring in
- Follow for clinical improvement.
- Supportive care / antiemetics / IVFs.
MONTANO
Abnormal LFTs
-monitor
Benign Hypertension
- Stable. Continue clonidine with holding parameters.
Hypothyroidism
- Stable. Continue current T4 supplementation.
- Update TFTs.
Peripheral Neuropathy
- Stable. Continue gabapentin.
History of HFpEF
- No current evidence of volume overload.
- Patient is no longer on diuretic regimen as an outpatient.
- Monitor I/Os, weights, etc.
- IVF support as noted above.
ADHD
- Would hold amphetamine during acute inpatient stay.
DVT Prophylaxis: Lovenox
Code Status: Full
Anticipated Discharge: 24 - 48 hours
Subjective/Interval History
-
Date of Service: October 29, 2023
remains mildly improved but with abdominal pain and nausea
had BM yesterday
Objective Data
-
Labs:
Laboratory Results
10/28/23 10/29/23 10/29/23
19:44 00:20 02:03
WBC
Hgb
Hct
Plt Count
PT 14.7 H
INR 1.17
APTT 28.2
Sodium 137 Cancelled 136
Potassium 3.3 L Cancelled 3.7
Chloride 103 Cancelled 103
Carbon Dioxide 15 L Cancelled 17 L
BUN 10 Cancelled 9
Creatinine 0.5 L Cancelled 0.5 L
Glucose 355 H Cancelled 287 H
Calcium 9.0 D Cancelled 9.3
10/29/23 10/29/23 10/29/23
02:04 04:35 08:00
WBC 9.8
Hgb 11.1 L
Hct 35.0 L
Plt Count 225
PT
INR
APTT
Sodium 134 L Pending
Potassium 3.7 Pending
Chloride 103 Pending
Carbon Dioxide 17 L Pending
BUN 9 Pending
Creatinine 0.5 L Pending
Glucose 270 H Pending
Calcium 9.1 Pending
10/29/23 10/29/23
12:00 16:00
WBC
Hgb
Hct
Plt Count
PT
INR
APTT
Sodium Pending Pending
Potassium Pending Pending
Chloride Pending Pending
Carbon Dioxide Pending Pending
BUN Pending Pending
Creatinine Pending Pending
Glucose Pending Pending
Calcium Pending Pending
Vital Signs:
Vital Signs
Temp Pulse Resp BP Pulse Ox
98.9 F 109 17 144/102 100
10/29/23 07:00 10/29/23 07:45 10/29/23 07:45 10/29/23 06:00 10/29/23 07:45
I&O
10/28/23 10/29/23 10/30/23
06:59 06:59 06:59
Intake Total 1639.5 / 1867.5 / 228
Balance 1639.5 / 1867.5
Review of Systems
-
History Source: Patient
All other systems: Reviewed and negative
Physical Exam
-
General: Well Developed, Well Nourished and No Apparent Distress
HEENT: Normocephalic, Atraumatic and Moist Mucous Membranes
Respiratory: Clear to Auscultation, Wheezes, Rales and Rhonchi
Cardiac: S1/S2 and Tachycardic
GI: Soft, Nontender and Nondistended
Musculoskeletal: No Clubbing, No Cyanosis and No Edema
Skin: Warm and Dry
Neuro: Awake, Alert and Oriented
Psych: Calm
Data Reviewed
-
Diagnostic Radiology: Report Reviewed by me
Labs: Labs Reviewed by me
[2023-10-29] MEDS: SODIUM PHOSPHATE 255 MEQ IV (08:06)
[2023-10-29] MEDS: PROTONIX IV 40 MG IV (08:11)
[2023-10-29] MEDS: NEURONTIN PO ×2 (08:12→22:12)
[2023-10-29 08:15] LABS: Glucose - Point of Care 240 mg/dl (70-99)
--- NOTE | 2023-10-29 08:30 | PTCARENOTE ---
recd pt on insulin gtt, assessed. seen by Drs. Wilks and Isabelle. aware of plan. sensor remains, pt reports no pump with her, needs refill, encouraged by MD to reach out to family to refill and bring in. skin flushed. call wallace in reach.
resting when undisturbed. fluid bolus infusing. labs drawn and sent.
[2023-10-29 08:57] LABS: Blood Urea Nitrogen 9 mg/dl (7-17); Calcium 9.2 mg/dl (8.4-10.2); Carbon Dioxide 22 mmol/L (22-30); Chloride 103 mmol/L (98-107); Estimated Creatinine Clearance > 125 ml/min; Glucose 247 mg/dl (70-99); Potassium 3.6 mmol/L (3.5-5.1); Sodium 135 mmol/L (135-145); eGFR > 60.00
[2023-10-29] MEDS: NSS 1000 IV ×2 (09:01→17:19)
[2023-10-29 09:11] LABS: Glucose - Point of Care 245 mg/dl (70-99)
[2023-10-29 10:12] LABS: Glucose - Point of Care 250 mg/dl (70-99)
[2023-10-29 11:11] LABS: Glucose - Point of Care 236 mg/dl (70-99)
[2023-10-29 12:05] LABS: Glycohemoglobin (HgbA1c) 7.1 % (4.0-5.6)
[2023-10-29 12:14] LABS: Glucose - Point of Care 240 mg/dl (70-99)
[2023-10-29 12:25] LABS: Blood Urea Nitrogen 6 mg/dl (7-17); Carbon Dioxide 22 mmol/L (22-30); Chloride 106 mmol/L (98-107); Estimated Creatinine Clearance > 125 ml/min; Glucose 254 mg/dl (70-99); Potassium 3.8 mmol/L (3.5-5.1); Sodium 135 mmol/L (135-145); eGFR > 60.00
--- NOTE | 2023-10-29 12:32 | PTCARENOTE ---
ambulated to bathroom, steady. resting in bed, med with toradol for 'whole upper body' pain. call wallace in reach. verbalizes approp re: plan of care, awaiting family visit.
[2023-10-29 13:11] LABS: Glucose - Point of Care 224 mg/dl (70-99)
[2023-10-29 14:16] LABS: Glucose - Point of Care 140 mg/dl (70-99)
[2023-10-29] MEDS: NEURONTIN 300 MG PO (15:06)
--- NOTE | 2023-10-29 15:09 | CM ---
CM was consulted by patient's bedside RN with concerns for patient's psychosocial well being. CM was advised that patient has multiple stressors at home including the care of a chronically ill child. CM reviewed medical records. Patient has a
history of ETOH abuse including treatment for withdrawals. Patient also has a history of anorexia.
CM was further advised that patient is not interested at this time in having case management speak with her regarding resources. CM will remain available for this patient.
[2023-10-29 15:11] LABS: Glucose - Point of Care 113 mg/dl (70-99)
--- NOTE | 2023-10-29 15:24 | PTCARENOTE ---
MD orders from Dr. Walton noted, pt placed insulin pump at 1455, ordered meal, awaiting delivery. orders present to dc insulin gtt and fluids 1 hour after pump connected.
--- NOTE | 2023-10-29 15:57 | PTCARENOTE ---
accucheck 118, insulin and fluids dc per order. dinner tray arrived. pt with no c/o. skin warm and dry.
[2023-10-29 16:05] LABS: Glucose - Point of Care 118 mg/dl (70-99)
[2023-10-29] MEDS: PATIENT'S OWN INSULIN PUMP SC ×2 (17:15→22:52)
[2023-10-29] MEDS: LOVENOX 40 MG SC (17:20)
--- NOTE | 2023-10-29 17:56 | PTCARENOTE ---
nauseated, appetite poor, med with zofran. no c/o. denies signs of hypo/hyper glycemia. Dr. Walton updated, IV fluids ordered and hung. OOB to bathroom. tele orders obtained.
[2023-10-29] MEDS: COMPAZINE 5 MG IV (19:13)
[2023-10-29 19:14] LABS: Glucose - Point of Care 182 mg/dl (70-99)
--- NOTE | 2023-10-29 20:21 | PTCARENOTE ---
Received patient in bed AAOx3. Flat affect. Patient complained of 8/10 upper body pain. nauseated. Pt had 150 mL brown emesis. Pain management and plan of care for the shift reviewed with the patient. Compazine and toradol administered. Sinus
rhythm, on the monitor. Diminished breath sounds. Pt declined night time medications at this time. Hypoactive bowel sounds. Cool wash cloths utilized. The patient is awaiting her spouse to bring a new dexcom. Fingerstick BG is 182. Pt has her
personal insulin pump. Safety measures are in use.
[2023-10-29 21:43] LABS: Glucose - Point of Care 169 mg/dl (70-99)
[2023-10-29] MEDS: CATAPRES PO (22:14)
[2023-10-30] VITALS (11 sets, daily range): BP systolic 121–188; BP diastolic 84–119; BMI 22.1
[2023-10-30] MEDS: APRESOLINE 5 MG IV ×2 (01:45→19:32)
--- NOTE | 2023-10-30 01:47 | PTCARENOTE ---
[id number]: Patient reassessed. Remains aaox3. Pt's BP 183/111, repeat 176/111. The patient is at rest. CITLALI Munoz paged and made aware. Repeat BP 188/101. Hydralazine 5 mg IV ordered and administered.
[2023-10-30] MEDS: TORADOL 10 MG IV ×4 (01:54→22:35)
[2023-10-30] MEDS: ZOFRAN 4 MG IV ×2 (01:56→16:24)
[2023-10-30 04:39] LABS: Hematocrit 34.3 % (37.0-47.0); Hemoglobin 11.1 g/dL (12.0-16.0); Mean Corp Hgb Conc. 32.4 g/dL (33.0-37.0); Mean Corpuscular Hgb 24.2 pg (27.0-31.0); Mean Corpuscular Volume 74.9 fL (81.0-99.0); Mean Platelet Volume 9.5 fL (7.4-10.4); Platelet Count 191 10^3/uL (130-400); Red Blood Cell Count 4.58 10^6/uL (4.20-5.40); Red Cell Dist. Width 23.2 % (11.5-14.5); White Blood Cell Count 6.3 10^3/uL (4.8-10.8)
--- NOTE | 2023-10-30 04:44 | PTCARENOTE ---
Patient reassessed. VSS. Pt ambulated to the bathroom. gait is steady. Labs drawn and sent. All needs are within reach.
[2023-10-30 05:00] LABS: Blood Urea Nitrogen < 2 mg/dl (7-17); Calcium 8.4 mg/dl (8.4-10.2); Carbon Dioxide 21 mmol/L (22-30); Chloride 103 mmol/L (98-107); Estimated Creatinine Clearance > 125 ml/min; Glucose 179 mg/dl (70-99); Magnesium 1.6 mg/dl (1.6-2.3); Phosphorus 1.9 mg/dl (2.5-4.5); Potassium 3.3 mmol/L (3.5-5.1); Sodium 135 mmol/L (135-145); eGFR > 60.00
[2023-10-30] MEDS: NSS 1000 IV ×2 (05:18→18:04)
--- NOTE | 2023-10-30 05:50 | W.PN.INTV ---
Today's Communication / Plan
Recommendations
IV fluids
Advance diet as able
Continue to monitor sugars
Blood pressure control
Patient transferred out of ICU. We will sign off. Please call with questions
Assessment
-
38-year-old female with history of insulin-dependent diabetes, history of DKA in the past, hypertension, hyperlipidemia, heart failure with preserved EF presents with acute DKA secondary to insulin pump malfunction according to patient
Acute DKA
anion gap 16, blood sugars greater than 300
Nausea/emesis x 3 days
Insulin-dependent diabetes
Insulin pump
Hypomagnesemia
Sinus tachycardia
Conditions present prior to admission
Hypertension/hyperlipidemia
History of heart failure
Anemia
Hypothyroidism
History of colitis
Questionable alcohol abuse
Per records
Abnormal LFTs in the past
Daily marijuana use
Ongoing tobacco use, 4 cigarettes a day
Increased stress at home
Daughter with disability
Son with Maritza syndrome
Plan/recommendations
At this time, patient appears to be comfortable
Presently off insulin drip. Abdominal pain continues but is improved. Last episode of emesis yesterday p.m.
Anion gap resolved
Tachycardia, hypertension noted
Moving forward
Continue with IV fluids, diet as able
Abdominal pain is noted
Patient has history of transaminitis in the past
Continue with IV Protonix for now
Patient with history of anemia. Follow hemoglobin. Presently stable
EKG with sinus tachycardia, nonspecific changes
IV fluids
Replete electrolytes
Hydralazine as needed
Patient on ceftriaxone per primary service. This will be deferred to hospitalist
Records suggest history of alcohol abuse. Patient admits to having drinks 3 times a week, but denies excessive alcohol use
DVT prophylaxis: Lovenox.
Recommend out of bed to chair, ambulate
Patient transferred out of ICU. We will sign off. Please call with questions
Subjective Dataa
Subjective Data
Date of Service:
Date of Service: October 30, 2023
Subjective:
Overall, patient is feeling slightly improved. She does have some mild abdominal discomfort from her nausea, last threw up yesterday. Appetite slowly improving but still fatigued. Denies headaches. Off insulin drip
Objective Data
Data Reviewed
Vital Signs / I&O / Oxygen:
Vital Signs
Temp Pulse Resp BP Pulse Ox
98.4 F 109 22 164/99 96
10/30/23 04:35 10/30/23 03:00 10/30/23 03:00 10/30/23 02:37 10/30/23 00:45
Intake and Output
10/28/23 10/29/23 10/30/23
06:59 06:59 06:59
Intake Total 1639.5 / 1867.5 4544.5 / 4544.5
Output Total 3250 / 3250
Balance 1639.5 / 1867.5 1294.5 / 1294.5
SaO2 96
Physical Exam
General: Comfortable
HEENT: Normocephalic and Anicteric
Cardiovascular: S1-S2, Regular Rhythm (Tachycardic) and Murmur (n)
Respiratory: Wheeze (n), Crackles (n), Rhonchi (n) and Non-Labored Respirations
GI: Soft, Non Distended and Tender (Mild midepigastric)
Neurology: Awake, Alert and No Motor Deficits (Moves all extremities)
Skin: Cyanosis (n) and Rash (n)
Labs/Micro/Reports
Lab Data
10/30/23 04:24
10/30/23 04:24
--- NOTE | 2023-10-30 07:12 | PTCARENOTE ---
0620: Called pharmacy for k rider and sodium phosphate.
--- NOTE | 2023-10-30 07:41 | W.PN.HOSP.TC ---
Today's Communication/Plan
-
see plan
Assessment / Plan
Assessment / Plan
A/P: Patient is a 38y F with PMH significant for DM-I and gastroparesis who presents to ED complaining of intractable N/V and abdominal pain. Patient reports that her insulin pump has failed on Tuesday10/21/2023 and she has been taking insulin
shots since then after consulting her primary
DKA
DM-I, Uncontrolled
Gastroparesis secondary to the above
- now s/p IV insulin gtt and closure of anion gap. She was transitioned to her own insulin pump on 10/28 which is functioning
- remains with abdominal pain and nausea --> obtain x-ray
- zofran PRN
- IVF until appetite improved
- start clears as long as x-ray OK
Dysuria
-check UA
MONTANO
Abnormal LFTs
-monitor
Benign Hypertension
- Stable. Continue clonidine with holding parameters.
Hypothyroidism
- Stable. Continue current T4 supplementation.
- Update TFTs.
Peripheral Neuropathy
- Stable. Continue gabapentin.
History of HFpEF
- No current evidence of volume overload.
- Patient is no longer on diuretic regimen as an outpatient.
- Monitor I/Os, weights, etc.
- IVF support as noted above.
ADHD
- Would hold amphetamine during acute inpatient stay.
DVT Prophylaxis: Lovenox
Code Status: Full
51 minutes spent on patient care
Anticipated Discharge: 24 - 48 hours
Subjective/Interval History
-
Date of Service: October 30, 2023
patient has persistent abdominal upset, vomited a small amount
typical for her gastroparesis flares
no chest pain or dizziness, + dysuria
Objective Data
-
Labs:
Laboratory Results
10/30/23
04:24
WBC 6.3
Hgb 11.1 L
Hct 34.3 L
Plt Count 191
Sodium 135
Potassium 3.3 L
Chloride 103
Carbon Dioxide 21 L
BUN < 2 L
Creatinine 0.4 L
Glucose 179 H
Calcium 8.4
Vital Signs:
Vital Signs
Temp Pulse Resp BP Pulse Ox
98.8 F 74 17 141/98 96
10/30/23 07:00 10/30/23 07:00 10/30/23 07:00 10/30/23 04:14 10/30/23 00:45
I&O
10/29/23 10/30/23 10/31/23
06:59 06:59 06:59
Intake Total 1639.5 / 1867.5 4704.5 / 4784.5 80 / 80
Output Total 3250 / 3250
Balance 1639.5 / 1867.5 1454.5 / 1534.5 80 / 80
Review of Systems
-
History Source: Patient
All other systems: Reviewed and negative
Physical Exam
-
General: Well Developed, Well Nourished and No Apparent Distress
HEENT: Normocephalic, Atraumatic and Moist Mucous Membranes
Respiratory: Clear to Auscultation, Wheezes, Rales and Rhonchi
Cardiac: S1/S2 and Tachycardic
GI: Soft and Other (mildly tender, lower quadrants )
Musculoskeletal: No Clubbing, No Cyanosis and No Edema
Skin: Warm and Dry
Neuro: Awake, Alert and Oriented
Psych: Calm
Data Reviewed
-
Diagnostic Radiology: Report Reviewed by me
Labs: Labs Reviewed by me
--- NOTE | 2023-10-30 08:00 | PTCARENOTE ---
recd 0715 handoff at bedside, seen by Benson Krishna rider infusing concurrently with IV fluids, denies urge to eat, notes abd all over unease, no emesis. rest of assessment noted. insulin pump and sensor by patient, our accucheck noted, pt did
bolus, see MAR. call wallace in reach. obstruction series pending.
[2023-10-30 08:02] LABS: Glucose - Point of Care 198 mg/dl (70-99)
[2023-10-30] MEDS: KCL 270 MEQ IV (08:14)
[2023-10-30] MEDS: NEURONTIN PO ×3 (08:15→21:39)
[2023-10-30] MEDS: PROTONIX IV 40 MG IV (08:16)
[2023-10-30] MEDS: NEUTRA-PHOS POWDER PACKET 250 MG PO ×2 (08:26→16:11)
[2023-10-30] MEDS: PATIENT'S OWN INSULIN PUMP 1.4 UNITS SC (08:28)
[2023-10-30 08:33] LABS: Urine Albumin Negative (Neg - Trace); Urine Bilirubin Negative (Negative); Urine Character Very Cloudy (Clear); Urine Color Yellow; Urine Glucose 1+ (Negative); Urine Ketone 3+ (Negative); Urine Leukocyte 2+ (Negative); Urine Nitrite Negative (Negative); Urine Occult Blood Trace (Negative); Urine Specific Gravity 1.015 (<1.030); Urine Urobilinogen Negative (Neg - 1+)
[2023-10-30 08:50] LABS: Urine Bacteria Many (Negative); Urine White Cell >100 /HPF (0-5)
[2023-10-30] MEDS: STERILE WATER FOR INJECTION 10 ML IV (09:38)
[2023-10-30] MEDS: ROCEPHIN 1000 MG IV (09:38)
[2023-10-30 11:46] LABS: Glucose - Point of Care 195 mg/dl (70-99)
[2023-10-30] MEDS: PATIENT'S OWN INSULIN PUMP 1.95 UNITS SC (11:54)
[2023-10-30] MEDS: NEUTRA-PHOS POWDER PACKET PO ×2 (13:55→21:40)
--- NOTE | 2023-10-30 15:52 | PTCARENOTE ---
refused lunch. ordered late, jello and water, resting, ambulates to bathroom. notes some relief with urination, less burning. fluids infuse, prescribed rate.
[2023-10-30] MEDS: PATIENT'S OWN INSULIN PUMP SC (16:51)
--- NOTE | 2023-10-30 16:52 | TRANSFER ---
report to 2N. Taken via bed with all belongings. pain/nausea improved, no further nausea.
[2023-10-30 16:53] LABS: Glucose - Point of Care 167 mg/dl (70-99)
--- NOTE | 2023-10-30 17:17 | W.PN.UPDATE ---
Update Note
Progress Note Update
spoke to patient and she is currently feeling better and wants to try solid food - ordered
[2023-10-30] MEDS: MAGNESIUM SULFATE 50 IV (17:35)
[2023-10-30] MEDS: TUMS 2 TABLET PO (18:02)
[2023-10-30] MEDS: REGLAN 5 MG IV (18:03)
[2023-10-30] MEDS: LOVENOX 40 MG SC (18:03)
[2023-10-30] MEDS: CATAPRES 0.2 MG PO (21:33)
[2023-10-30 21:35] LABS: Glucose - Point of Care 209 mg/dl (70-99)
[2023-10-30] MEDS: PATIENT'S OWN INSULIN PUMP 2.3 UNITS SC (21:37)
[2023-10-31 03:39] VITALS: BP 101/69
[2023-10-31 05:40] VITALS: BMI 21.9
[2023-10-31 06:00] VITALS: BMI 21.9
[2023-10-31] MEDS: NSS 1000 IV (06:35)
[2023-10-31] MEDS: TORADOL 10 MG IV (06:38)
[2023-10-31 06:46] LABS: Glucose - Point of Care 134 mg/dl (70-99)
[2023-10-31 06:55] LABS: Blood Urea Nitrogen 3 mg/dl (7-17); Calcium 8.8 mg/dl (8.4-10.2); Carbon Dioxide 23 mmol/L (22-30); Chloride 105 mmol/L (98-107); Estimated Creatinine Clearance > 125 ml/min; Glucose 149 mg/dl (70-99); Phosphorus 2.4 mg/dl (2.5-4.5); Potassium 3.4 mmol/L (3.5-5.1); Sodium 134 mmol/L (135-145); eGFR > 60.00
[2023-10-31 07:15] VITALS: BP 122/79
[2023-10-31 07:22] LABS: Glucose - Point of Care 170 mg/dl (70-99)
[2023-10-31] MEDS: PATIENT'S OWN INSULIN PUMP 7.3 UNITS SC (07:55)
[2023-10-31] MEDS: PROTONIX IV 40 MG IV (07:56)
[2023-10-31] MEDS: NEURONTIN 300 MG PO (08:01)
[2023-10-31] MEDS: NEUTRA-PHOS POWDER PACKET 250 MG PO (08:01)
--- NOTE | 2023-10-31 09:17 | PN.DE ---
Diabetes Education
- -
10/31/2023: Diabetes Education Consult:
38 year old female well known to Diabetes team from previous admissions with DKA, admitted 10/28 with DKA.
PMH: T1DM (12 yrs old), CHF, SLE and anorexia.
Glucose on admission was 234 with a GAP of 16. She was initially on insulin infusion, and was transitioned to her insulin pump on 10/28
Pt uses OminiPod with Humalog insulin and CGM-Dexcom G6. A1C 7.1%, cR 0.5, eGFR >60
Patient is awake, A/O x3, sitting up in bed, pleasant, offers no complaints, able to discuss diabetes mgt
No nausea or vomiting. OmniPod is in place. 1800 Calorie diet was started on transition
Pump settings as follows:
Basal rate 12am - 12am 1.5 u/h
ICR 1:7.5
Target range 70-180
Correction Factor 1:30
Duration 4hrs
24 hr total basal 36 units
Reviewed documentation for insulin pump worksheet , instructed to fill in when bolus is administered at meal times.
Cont Accucheks AC/HS
[2023-10-31] MEDS: STERILE WATER FOR INJECTION 10 ML IV (09:21)
[2023-10-31] MEDS: ROCEPHIN 1000 MG IV (09:21)
[2023-10-31 11:05] VITALS: BP 104/70
[2023-10-31 11:23] LABS: Glucose - Point of Care 246 mg/dl (70-99)
--- NOTE | 2023-10-31 13:09 | W.PN.HOSP.TC ---
Today's Communication/Plan
-
dc to home
Assessment / Plan
Assessment / Plan
A/P: Patient is a 38y F with PMH significant for DM-I and gastroparesis who presents to ED complaining of intractable N/V and abdominal pain. Patient reports that her insulin pump has failed on Tuesday10/21/2023 and she has been taking insulin
shots since then after consulting her primary
DKA
DM-I, Uncontrolled
Gastroparesis secondary to the above
- s/p insulin gtt now back on pump as gap closed
- tolerating diet
E. Coli UTI
- discharge on Cefdinir x 7 days
MONTANO
Abnormal LFTs
- monitor
Benign Hypertension
- stable. Continue clonidine with holding parameters.
Hypothyroidism
- stable. continue current T4 supplementation.
- Update TFTs.
Peripheral Neuropathy
- Stable. continue gabapentin.
History of HFpEF
- No current evidence of volume overload.
- Patient is no longer on diuretic regimen as an outpatient.
- Monitor I/Os, weights, etc.
- IVF support as noted above.
ADHD
- Would hold amphetamine during acute inpatient stay.
Hypokalemia
DVT Prophylaxis: Lovenox
Code Status: Full
More than 30 minutes spent in discharge including
Final examination of the patient
Summarizing hospital stay
Instructions for continuing care to all relevant caregivers
Preparation of discharge records, prescriptions, and referral forms
Total time spent (in minutes): 42
Anticipated Discharge: Today
Subjective/Interval History
-
Date of Service: October 31, 2023
no new complaints
tolerating diet
Objective Data
-
Labs:
Laboratory Results
10/31/23
05:46
Sodium 134 L
Potassium 3.4 L
Chloride 105
Carbon Dioxide 23
BUN 3 L
Creatinine 0.5 L
Glucose 149 H
Calcium 8.8
Vital Signs:
Vital Signs
Temp Pulse Resp BP Pulse Ox
97.8 F 83 18 104/70 100
10/31/23 11:05 10/31/23 11:05 10/31/23 11:05 10/31/23 11:05 10/31/23 11:05
I&O
10/30/23 10/31/23 11/01/23
06:59 06:59 06:59
Intake Total 4704.5 / 4784.5 2758 / 2758
Output Total 3250 / 3250 900 / 900
Balance 1454.5 / 1534.5 1858 / 1858
Physical Exam
-
General: No Apparent Distress
HEENT: Normocephalic and Atraumatic
Respiratory: Negative Wheezes
Cardiac: Regular Rhythm and S1/S2
GI: Soft
Neuro: AO x 3
Hematologic / Lymphatic: No Lymphadenopathy
Psych: Calm
Data Reviewed
-
Total Time Spent with Patient (in minutes): 42
Labs: Labs Reviewed by me
--- NOTE | 2023-10-31 13:32 | W.DS.TRANS ---
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
-
Discharge Instructions:
Sleep Apnea Risk Low
Discharge Diagnosis/Procedures DKA, UTI, gastoparesis
Diet Diabetic, Carb Controlled
Activity As tolerated
Instructions:
Stand-Alone Forms:
Changes to Home Medications: No
Discharge Medications:
DC Medications w/original date entered in [facility]
gabapentin 300 mg capsule 300 mg PO TID Pain 01/17/23
levothyroxine 50 mcg tablet 50 mcg PO HS Thyroid 01/17/23
sertraline 100 mg tablet 100 mg PO HS Mental Health/Anxiety 01/17/23
atorvastatin 10 mg tablet 10 mg PO HS High Cholesterol 01/20/23
Patient's Own Insulin 0 unit SC .VIA PUMP Diabetes 06/14/23
clonidine HCl 0.2 mg tablet 0.2 mg PO HS Blood Pressure 06/14/23
gabapentin 100 mg capsule 200 mg PO HS Pain 06/14/23
melatonin 10 mg tablet 10 mg PO HS Sleep 06/14/23
pantoprazole 40 mg tablet,delayed release 40 mg PO DAILYPRN PRN gerd 06/14/23
acetaminophen 500 mg tablet (Tylenol Extra Strength) 1,000 mg PO BIDPRN PRN mild pain 07/22/23
dextroamphetamine-amphetamine 15 mg tablet 15 mg PO NOON Mental Health/Anxiety 07/22/23
dextroamphetamine-amphetamine 15 mg tablet 30 mg PO DAILY Mental Health/Anxiety 07/22/23
ibuprofen 200 mg tablet 400 mg PO DAILYPRN PRN mild pain 07/22/23
cefdinir 300 mg capsule 300 mg PO BID #10 caps 10/31/23
Home Medication Changes
Pending Results: No
Total time spent discharging patient (in min): 42
[2023-10-31] MEDS: PATIENT'S OWN INSULIN PUMP 5.85 UNITS SC (13:45)
--- NOTE | 2023-10-31 14:01 | CM ---
Patient has been medically cleared for discharge to home with no additional skilled services. Patient has arranged for transport home.
--- NOTE | 2023-10-31 14:57 | CM ---
Initial assessment completed with patient who lives with her and 2 daughters (9 and 15 y/o). Younger daughter is autistic. Family lives in a split level home with basement with B/B on 2nd floor and 2 steps to enter the home. Patient has
crutches and RW in the home but does not use, no in-home services. [employer] was independent and drove, cares for younger daughter. No psychiatric hospitalizations. Pharmacy is [facility] [address] in [place] and PCP is [facility].
Anticipate no needs at discharge.
== END 2023-10-31 14:47 | disposition home or self-care (01) | DRG 638 ==
LOC: 2 NORTH 19:58
PROVIDERS: Nurse Practitioner Primary Care; Student in an Organized Health Care Education/Training Program; ADMITTING PHYSICIAN Hospitalist; ATTENDING PHYSICIAN Internal Medicine; CONSULT PHYSICIAN Internal Medicine Critical Care Medicine; EMERGENCY PHYSICIAN Emergency Medicine; FAMILY PHYSICIAN Nurse Practitioner Adult Health
DX: E10.10 Type 1 diabetes mellitus with ketoacidosis without coma (principal); I50.32 Chronic diastolic (congestive) heart failure; N39.0 Urinary tract infection, site not specified; T85.614A Breakdown (mechanical) of insulin pump, initial encounter; D52.9 Folate deficiency anemia, unspecified; E10.42 Type 1 diabetes mellitus with diabetic polyneuropathy; E10.43 Type 1 diabetes mellitus with diabetic autonomic (poly)neuropathy; I11.0 Hypertensive heart disease with heart failure; K76.0 Fatty (change of) liver, not elsewhere classified; D53.9 Nutritional anemia, unspecified; E03.9 Hypothyroidism, unspecified; F32.A Depression, unspecified; F10.10 Alcohol abuse, uncomplicated; F90.9 Attention-deficit hyperactivity disorder, unspecified type; K31.84 Gastroparesis; Y74.2 Prosthetic and other implants, materials and accessory general hospital and personal-use devices associated with adverse incidents; B96.20 Unspecified Escherichia coli [E. coli] as the cause of diseases classified elsewhere; E78.5 Hyperlipidemia, unspecified; E83.42 Hypomagnesemia; E87.6 Hypokalemia; F12.90 Cannabis use, unspecified, uncomplicated; F17.210 Nicotine dependence, cigarettes, uncomplicated; K21.9 Gastro-esophageal reflux disease without esophagitis; Z96.41 Presence of insulin pump (external) (internal); Z79.890 Hormone replacement therapy; Z79.899 Other long term (current) drug therapy; Z98.891 History of uterine scar from previous surgery; Z87.81 Personal history of (healed) traumatic fracture
CPT/HCPCS: 71045; 74022; 80048; 80053; 81003; 81015; 82010; 82550; 82805; 82962; 83036; 83690; 83735; 84100; 84439; 84443; 84703; 85025; 85027; 85610; 85730; 87077; 87086; 87186; 93005; 96361; 96365; 96366; 96375; 96376; 99291

== ENCOUNTER 2023-11-27 12:20 | Emergency (ER) | payer BC, SELFPAY ==
[2023-11-27] VITALS (9 sets, daily range): BP systolic 113–183; BP diastolic 78–123; BMI 21.9
[2023-11-27 12:32] LABS: Glucose - Point of Care 174 mg/dl (70-99)
[2023-11-27 13:09] LABS: Hematocrit 44.2 % (37.0-47.0); Hemoglobin 14.2 g/dL (12.0-16.0); Mean Corp Hgb Conc. 32.1 g/dL (33.0-37.0); Mean Corpuscular Hgb 25.1 pg (27.0-31.0); Mean Corpuscular Volume 78.1 fL (81.0-99.0); Mean Platelet Volume 9.8 fL (7.4-10.4); Platelet Count 318 10^3/uL (130-400); Red Blood Cell Count 5.66 10^6/uL (4.20-5.40); White Blood Cell Count 8.2 10^3/uL (4.8-10.8)
--- NOTE | 2023-11-27 13:12 | ED.GENMED ---
History of Present Illness
General
Chief Complaint: Abdominal Symptoms
Time Seen by Provider: 11/27/23 12:47
History of Present Illness
History of Present Illness:
38-year-old female with history of insulin-dependent diabetes presents to the emergency department for evaluation of intractable vomiting for the past 2 days. Has not tolerated any p.o. fluids during that time. Blood sugars have been in the 200
range per patient. She does have an insulin pump. Was admitted to this hospital last month due to DKA. Reports generalized abdominal pain. Does admit to social alcohol and marijuana use but denies habitual or daily use.
Past History
Past History
ED Past Medical History: HTN, IDDM and Other (folate def., macrocytic anemia, hepatic steatosis)
ED Past Surgical History: Gynecological
Patient has exhibited threatening behavior?: No
PSI?: No
Social History
Tobacco: Smoker
Alcohol: Occasional (Last drink-yesterday, whiskey)
Drug: None
Personal:
Living: with family
Employment: Employed
Review of Systems
Review of Systems
Allergies reviewed?: Yes
All Other Systems: ROS reviewed and negative except as documented in HPI and ROS
Phy Exam
Physical Exam
Physical Exam:
GEN: Well appearing, NAD, WDWN
HEENT: Oral mucosa moist, no scleral icterus
Cardiac: Tachycardic, regular
Lung: No respiratory distress, no tachypnea
Abdomen: Soft, generalized tenderness to all 4 quadrants
MSK: No gross deformity or injuries
Skin: Good color, no pallor or jaundice, no rashes
Neuro: AO x3, moves all extremities freely
Psych: Calm, cooperative
Course
Orders/Labs/Results
Orders:
Orders
11/27/23 12:47
Urinalysis Reflex To Culture Urgent
Test Result ONCE
11/27/23 12:52
Acetone [B-Hydroxybutyrate] Urgent
Complete Blood Count/No Diff Urgent
Comprehensive Metabolic Panel Urgent
HCG, Serum Qualitative Screen Urgent
Lipase Urgent
Venous Blood Gas Urgent
%Oxygen/Room Air: 100
11/27/23 13:14
Ketorolac [Toradol] 15 mg IV NOW STA
Ondansetron Injectable [Zofran] 4 mg IV NOW STA
11/27/23 13:15
0.9% Sodium Chloride 1000 ml [Nss] 1,000 ml IV BOLUS
11/27/23 15:12
0.9% Sodium Chloride 500 ml [Nss] 500 ml IV BOLUS
HYDROmorphone [Dilaudid] 0.5 mg IV NOW STA
11/27/23 16:45
Metoclopramide [Reglan] 10 mg IV NOW STA
11/27/23 17:19
HYDROmorphone [Dilaudid] 1 mg IV NOW STA
Abnormal Lab Results
11/27/23 11/27/23
12:29 12:52
RBC 5.66 H 10^6/uL
(4.20-5.40)
MCV 78.1 L fL
(81.0-99.0)
MCH 25.1 L pg
(27.0-31.0)
MCHC 32.1 L g/dL
(33.0-37.0)
RDW 21.0 H %
(11.5-14.5)
VBG pO2 70 H mmHg
(30-50)
VBG HCO3 29.8 H mmol/L
(22-27)
Chloride 89 L mmol/L
(98-107)
BUN 19 H mg/dl
(7-17)
Glucose 193 H mg/dl
(70-99)
Calcium 10.6 H mg/dl
(8.4-10.2)
AST 110 H U/L
(14-36)
ALT 47 H U/L
(0-35)
Alkaline Phosphatase 170 H U/L
(38-126)
Total Protein 9.2 H g/dl
(6.3-8.2)
Albumin 5.6 H g/dl
(3.5-5.0)
B-Hydroxybutyrate 5.17 H mmol/L
(0.02-0.27)
POC Glucose 174 H mg/dl
(70-99)
11/27/23 12:52
11/27/23 12:52
Vital Signs
Initial and Last Documented VS:
Initial Vital Signs
Pulse Resp BP Pulse Ox
131 20 176/123 100
11/27/23 12:25 11/27/23 12:25 11/27/23 12:25 11/27/23 12:25
Last Documented Vital Signs
Pulse Resp BP Pulse Ox
131 20 113/83 99
11/27/23 12:25 11/27/23 12:25 11/27/23 17:24 11/27/23 17:24
MDM/Problems Addressed
MDM/Problems Addressed:
Patient arrives with intractable nausea and vomiting, she is markedly tachycardic and hypertensive on arrival. Initially given IV fluid resuscitation and antiemetics however continue with persistent symptoms. Her labs show ketosis without
acidosis, no evidence for DKA at this time. Continue to receive IV fluid resuscitation and ultimately opiates for pain which did dramatically improve her symptoms. Likely some component of diabetic gastroparesis affecting her symptoms. She was
able to tolerate p.o. fluids at time of discharge. Given strict ED return parameters given her tenuous volume status in the setting of known diabetes
*Critical Care Note
Total Time (30-74mins, 75-104mins- exclusive of procedures): Not Applicable
ED Attending Note
-
Portions of this chart may have been created with voice recognition software.� Occasional wrong word or��sound alike� substitutions may have occurred due to the inherent limitations of voice recognition software.
Discharge Plan
Departure
Patient Disposition: Home (Routine Discharge)
Date of Disposition: 11/27/23
Time of Disposition: 17:49
Patient with high blood pressure during this ER visit?: No
Discharge Problem:
Nausea & vomiting, Gastroparesis
Instructions: Nausea and Vomiting, Adult (DC)
Prescriptions:
New
ondansetron 4 mg tablet,disintegrating
4 mg PO TIDPRN PRN (Reason: nausea/vomiting) Qty: 10 0RF
No Action
sertraline 100 mg tablet
100 mg PO HS
gabapentin 300 mg capsule
300 mg PO TID
levothyroxine 50 mcg tablet
50 mcg PO HS
atorvastatin 10 mg Tablet
10 mg PO HS
clonidine HCl 0.2 mg Tablet
0.2 mg PO HS
gabapentin 100 mg Capsule
200 mg PO HS
Rx Instructions:
07/22/2023, take with 300 mg for a total of 500 mg.
melatonin 10 mg Tablet
10 mg PO HS
Patient's Own Insulin
0 unit SC .VIA PUMP
Patient Comments:
07/22/2023, pt. uses Humalog 100 unit/ml insulin and changes her insulin Q72H; per pt., she changed her insulin yesterday (07/21/2023). Pt. uses Omnipod 5 G6 pods. Pt. states that there is half of a pod left when she changes her insulin out.
pantoprazole 40 mg tablet,delayed release (DR/EC)
40 mg PO DAILYPRN PRN (Reason: gerd)
acetaminophen [Tylenol Extra Strength] 500 mg Tablet
1,000 mg PO BIDPRN PRN (Reason: mild pain)
dextroamphetamine-amphetamine 15 mg Tablet
30 mg PO DAILY
Patient Comments:
10/28/2023: last filled 10/10/23, 90 tabs [facility] days from [facility]
dextroamphetamine-amphetamine 15 mg Tablet
15 mg PO NOON
Patient Comments:
10/28/2023: last filled 10/10/23, 90 tabs [facility] days from [facility]
ibuprofen 200 mg Tablet
400 mg PO DAILYPRN PRN (Reason: mild pain)
cefdinir 300 mg capsule
300 mg PO BID Qty: 10 0RF
Referrals:
Lisa Jose CRNP [Family Provider] -
Activity Restrictions/Additional Instructions:
Do not hesitate to return to the ER if your symptoms are not controlled by Zofran
Interventions
Interventions:
*Risk Screen - Suicide Last Done: 11/27/23 12:59
*General Assessment Last Done: 11/27/23 12:59
*Neglect/Abuse Screening Last Done: 11/27/23 12:59
HK-Zqelor-Snmgvdkezz Assessment Last Done: 11/27/23 12:56
Discharge Date and Time
Print Language: ANGUILLAN
[2023-11-27 13:20] LABS: HCG, Serum Qualitative Screen Negative
[2023-11-27 13:23] LABS: ALT (SGPT) 47 U/L (0-35); AST (SGOT) 110 U/L (14-36); Albumin 5.6 g/dl (3.5-5.0); Alkaline Phosphatase 170 U/L (38-126); Blood Urea Nitrogen 19 mg/dl (7-17); Calcium 10.6 mg/dl (8.4-10.2); Carbon Dioxide 28 mmol/L (22-30); Chloride 89 mmol/L (98-107); Estimated Creatinine Clearance > 125 ml/min; Glucose 193 mg/dl (70-99); Lipase 284 U/L (23-300); Potassium 3.6 mmol/L (3.5-5.1); Sodium 143 mmol/L (135-145); Total Bilirubin 0.8 mg/dl (0.2-1.3); Total Protein 9.2 g/dl (6.3-8.2); eGFR > 60.00
[2023-11-27] MEDS: ZOFRAN 4 MG IV (13:27)
[2023-11-27] MEDS: TORADOL 15 MG IV (13:27)
[2023-11-27] MEDS: NSS 1000 IV (13:28)
[2023-11-27 13:30] LABS: B-Hydroxybutyrate 5.17 mmol/L (0.02-0.27)
[2023-11-27 13:41] LABS: Venous Blood Gas B.E. 4.3 mmol/L (-4 to +4); Venous Blood Gas HCO3 29.8 mmol/L (22-27); Venous Blood Gas O2 Sat % 94.9 %; Venous Blood Gas pCO2 47 mmHg (35-48); Venous Blood Gas pH 7.41 (7.32-7.43); Venous Blood Gas pO2 70 mmHg (30-50)
[2023-11-27] MEDS: DILAUDID 0.5 MG IV (16:46)
[2023-11-27] MEDS: REGLAN 10 MG IV (16:52)
[2023-11-27] MEDS: NSS 500 IV (16:52)
[2023-11-27] MEDS: DILAUDID 1 MG IV (17:23)
== END 2023-11-27 18:36 | disposition home or self-care (01) ==
LOC: EMR 12:20
PROVIDERS: Physician Assistant; EMERGENCY PHYSICIAN Emergency Medicine; FAMILY PHYSICIAN Nurse Practitioner Adult Health
DX: K31.84 Gastroparesis (principal); R11.2 Nausea with vomiting, unspecified; F17.200 Nicotine dependence, unspecified, uncomplicated; E11.9 Type 2 diabetes mellitus without complications
CPT/HCPCS: 99284; 96374; 96375 ×3; 96361 ×2; 96376; 80053; 82010; 82805; 82962; 83690; 84703; 85027

== ENCOUNTER 2023-11-28 23:55 | Emergency (ER) | payer BC, SELFPAY ==
[2023-11-28 23:59] VITALS: BP 184/126
[2023-11-29 01:08] VITALS: BP 196/129
[2023-11-29 01:10] VITALS: BP 185/116
--- NOTE | 2023-11-29 01:16 | ED.GENMED ---
History of Present Illness
General
Chief Complaint: Abdominal Symptoms
Source: patient
Exam Limitations: none
Time Seen by Provider: 11/29/23 00:28
History of Present Illness
History of Present Illness:
This is a 38 year old female that comes in with c/o gastroparesis. States that she was here on Tuesday with the same thing. States that she was given IV fluids and zofran and she was sent home. States that she has been vomiting and even a sip or
water she is unable to keep down. States that she has slight SOB, abd pain, nausea, vomiting, and a headache. States that she is also dizzy when she stands up. Denies any fever, chills, chest pain, diarrhea, urinary burning.
Past History
Past History
ED Past Medical History: HTN, Hypercholesterolemia, IDDM and Other (folate def., macrocytic anemia, hepatic steatosis, gastroparesis, 'Heart failure, it was a one time thing')
ED Past Surgical History: (X 2), Gynecological and Orthopedic (Right hip pinning)
Patient has exhibited threatening behavior?: No
PSI?: No
Social History
Tobacco: Smoker
Alcohol: Occasional (Last drink-yesterday, whiskey)
Drug: None
Personal:
Living: with family
Employment: Employed
Review of Systems
Review of Systems
All Other Systems: ROS reviewed and negative except as documented in HPI and ROS
Constitutional: Reports no symptoms; Denies fever or chills
EENT: Reports no symptoms
Respiratory: Reports trouble breathing; Denies cough
Cardiac: Reports no symptoms; Denies chest pain
ABD/GI: Reports abdominal pain, nausea and vomiting; Denies diarrhea
: Reports no symptoms; Denies dysuria, frequency or urgency
Musculoskeletal: Reports no symptoms
Skin: Reports no symptoms
Neurological: Reports dizzy (when she stand up) and headache
Psychiatric: Reports no symptoms
Phy Exam
General Physical Exam
General Presentation: mild distress
General age: appears stated age
General Skin: warm and dry
General Habitus: normal
General Mental: alert
General Hydration: dry mucous membranes
ENT Exam
ENT Exam: TM's normal, pharynx normal and neck supple
Eye Exam
Eye Exam: EOMI
Cardiovascular Exam
Cardiovascular Exam: no edema, no murmur, normal peripheral pulses and tachycardia
Pulmonary Exam
Pulmonary Exam: lungs clear, no respiratory distress, no rales, chest non tender, no crackles, no rhonchi, no wheezing and no cough
Gastrointestinal Exam
Gastrointestinal Exam: soft, no organomegaly, no pulsatile mass, non distended, tender (generalized abd tenderness with palpation) and other (Hypoactive bowel sounds)
Musculoskeletal Exam
Musculoskeletal Exam: full ROM and no edema
Skin Exam
Skin Exam: normal color, warm/dry, no rash and no petechia
Psychiatric Exam
Psychiatric Exam: normal mood/affect
Course
Orders/Labs/Results
Orders:
Orders
11/29/23 00:04
Ondansetron Orally Disint [Zofran Odt (Orally Disintegrating)] 4 mg .ROUTE .STK-MED ONE
11/29/23 00:05
Ondansetron Orally Disint [Zofran Odt (Orally Disintegrating)] 4 mg PO NOW STA
11/29/23 00:55
Test Result ONCE
11/29/23 01:14
0.9% Sodium Chloride 1000 ml [Nss] 1,000 ml IV BOLUS
Metoclopramide [Reglan] 10 mg IV NOW STA
11/29/23 01:15
Acetaminophen 1000MG/100Ml [Ofirmev] 1,000 mg in 100 ml IV ONCE
Acetaminophen IV Indication:: ED Narcotic Naive Pt-ONCE
Ketorolac [Toradol] 30 mg IV NOW STA
11/29/23 01:17
B-Hydroxybutyrate Urgent
Complete Blood Count/With Diff Urgent
Comprehensive Metabolic Panel Urgent
HCG, Serum Qualitative Screen Urgent
11/29/23 01:18
Pantoprazole [Protonix IV] 40 mg IV NOW STA
11/29/23 01:24
Electrocardiogram (*1) Urgent
Reason for Study: Abdominal Pain
EKG- Treatment ONCE
11/29/23 03:20
Potassium Chloride Powder [Klor-Con] 40 meq PO NOW STA
11/29/23 03:22
0.9% Sodium Chloride 1000 ml [Nss] 1,000 ml IV BOLUS
Abnormal Lab Results
11/29/23
01:17
MCV 76.8 L fL
(81.0-99.0)
MCH 25.2 L pg
(27.0-31.0)
MCHC 32.8 L g/dL
(33.0-37.0)
RDW 19.7 H %
(11.5-14.5)
Absolute Monos (auto) 0.7 H 10^3/uL
(0.1-0.6)
Monocytes % 9.6 H %
(1.7-9.3)
Potassium 3.0 L mmol/L
(3.5-5.1)
Chloride 93 L mmol/L
(98-107)
Carbon Dioxide 21 L mmol/L
(22-30)
Creatinine 0.5 L mg/dL
(0.6-1.0)
Glucose 221 H mg/dl
(70-99)
AST 72 H U/L
(14-36)
B-Hydroxybutyrate > 9 H mmol/L
(0.02-0.27)
11/29/23 01:17
11/29/23 01:17
Anemia, Hypokalemia, Chloride low, carbon dioxide slightly low, Hyperglycemia, AST elevated. B-Hydroxybutyrate elevated >9, HCG negative.
Vital Signs
Initial and Last Documented VS:
Initial Vital Signs
Temp Pulse Resp BP Pulse Ox
98.2 F 120 24 184/126 100
11/28/23 23:59 11/28/23 23:59 11/28/23 23:59 11/28/23 23:59 11/28/23 23:59
Last Documented Vital Signs
Temp Pulse Resp BP Pulse Ox
98.2 F 109 18 140/101 98
11/28/23 23:59 11/29/23 03:30 11/29/23 03:30 11/29/23 03:30 11/29/23 03:30
MDM/Problems Addressed
Differential Diagnosis Includes:
gastroparesis,
MDM/Problems Addressed:
This is a 38 year old female that comes in with c/o abd pain and vomiting. States that she was here on Tuesday with Gastroparesis and she was given IV fluids and Zofran and sent home. States that she has not been able to keep anything down not even a
sip of water.
Will get labs, IV fluids and medicate for pain.
Back into see patient. States that she is feeling a little better but her stomach still hurts. Reviewed labs. Patient monitors her blood sugar and will bolus herself. Will give patient a second IV bag of fluids. Explained that she will be given a
Prescription for Reglan. Will recheck after the IV fluids.
Patient blood sugar is 162 on her monitor. States that she will got home. Encouraged patient to use her Protonix daily and will also give patient a prescription for Reglan. Patient to increase her water intake to 8-8oz glasses daily. Follow up with
the family doctor and her GI specialist. Return with any concerns.
Chronic conditions affecting care: DM
Acute Exacerbation and/or Progression of Chronic Illness: DM
*Pulse Oximetry
Patient hypoxic: no
*Comfort Advisor Interpretation
Rate: tachycardiac
Heart Rate: 106
Rhythm: sinus tachycardia
*Critical Care Note
Total Time (30-74mins, 75-104mins- exclusive of procedures): Not Applicable
ED Attending Note
-
Portions of this chart may have been created with voice recognition software.� Occasional wrong word or��sound alike� substitutions may have occurred due to the inherent limitations of voice recognition software.
Discharge Plan
Departure
Patient Disposition: Home (Routine Discharge)
Date of Disposition: 11/29/23
Time of Disposition: 04:07
Patient with high blood pressure during this ER visit?: Yes
Condition: Good
Covid-19: Not Applicable
Discharge Problem:
Abdominal pain, Gastroparesis
Instructions: Gastroparesis (delayed gastric emptying), Abdominal Pain, BLOOD PRESSURE
Prescriptions:
New
metoclopramide HCl [Reglan] 10 mg tablet
10 mg PO Q6H PRN (Reason: nausea and vomiting) Qty: 15 0RF
No Action
sertraline 100 mg tablet
100 mg PO HS
gabapentin 300 mg capsule
300 mg PO TID
levothyroxine 50 mcg tablet
50 mcg PO HS
atorvastatin 10 mg Tablet
10 mg PO HS
clonidine HCl 0.2 mg Tablet
0.2 mg PO HS
gabapentin 100 mg Capsule
200 mg PO HS
Rx Instructions:
07/22/2023, take with 300 mg for a total of 500 mg.
melatonin 10 mg Tablet
10 mg PO HS
Patient's Own Insulin
0 unit SC .VIA PUMP
Patient Comments:
07/22/2023, pt. uses Humalog 100 unit/ml insulin and changes her insulin Q72H; per pt., she changed her insulin yesterday (07/21/2023). Pt. uses Omnipod 5 G6 pods. Pt. states that there is half of a pod left when she changes her insulin out.
pantoprazole 40 mg tablet,delayed release (DR/EC)
40 mg PO DAILYPRN PRN (Reason: gerd)
acetaminophen [Tylenol Extra Strength] 500 mg Tablet
1,000 mg PO BIDPRN PRN (Reason: mild pain)
dextroamphetamine-amphetamine 15 mg Tablet
30 mg PO DAILY
Patient Comments:
10/28/2023: last filled 10/10/23, 90 [facility]
dextroamphetamine-amphetamine 15 mg Tablet
15 mg PO NOON
Patient Comments:
10/28/2023: last filled 10/10/23, 90 tabs [facility]
ibuprofen 200 mg Tablet
400 mg PO DAILYPRN PRN (Reason: mild pain)
cefdinir 300 mg capsule
300 mg PO BID Qty: 10 0RF
ondansetron 4 mg tablet,disintegrating
4 mg PO TIDPRN PRN (Reason: nausea/vomiting) Qty: 10 0RF
Referrals:
Lisa Jose CRNP [Family Provider] - Follow up in 2-3 days
Activity Restrictions/Additional Instructions:
As discussed, your blood work shows that our potassium was low. You have been given Oral potassium here. Please try and eat a banana and some green leafy vegetables. Your Blood sugar is coming down. Please monitor to keep in a normal range. Please
increase your water intake to 8-8oz glasses daily. Please follow up with the family doctor and a GI specialist for further evaluation. You have had a prescription for Reglan sent to your Pharmacy. IF YOU HAVE VOMITING, INCREASED OR CHANGING
ABDOMINAL PAIN, OR YOU HAVE ANY OTHER CONCERN PLEASE RETURN TO THE EMERGENCY ROOM.
Interventions
Interventions:
*Risk Screen - Suicide Last Done: 11/28/23 23:59
*Neglect/Abuse Screening Last Done: 11/28/23 23:59
ED- Fall Risk Assessment Last Done: 11/29/23 01:09
MM-Fuhiga-Jdnvgpgwku Assessment Last Done: 11/29/23 01:09
Discharge Date and Time
Print Language: FAROESE
[2023-11-29 01:24] LABS: % Basophils 0.6 % (0-2); % Eosinophils 1.5 % (0-6); % Immature Granulocytes 0.3 % (0-0.5); % Lymphocytes 21.6 % (20.5-51.1); % Monocytes 9.6 % (1.7-9.3); % Neutrophils 66.4 % (42.2-75.2); Absolute Eosinophils 0.1 10^3/uL (0-0.7); Absolute Lymphocytes 1.5 10^3/uL (1.2-3.4); Absolute Monocytes 0.7 10^3/uL (0.1-0.6); Absolute Neutrophils 4.7 10^3/uL (1.4-6.5); Hematocrit 38.7 % (37.0-47.0); Hemoglobin 12.7 g/dL (12.0-16.0); Mean Corp Hgb Conc. 32.8 g/dL (33.0-37.0); Mean Corpuscular Hgb 25.2 pg (27.0-31.0); Mean Corpuscular Volume 76.8 fL (81.0-99.0); Mean Platelet Volume 9.8 fL (7.4-10.4); Nucleated Red Blood Cells % 0 %; Platelet Count 257 10^3/uL (130-400); Red Blood Cell Count 5.04 10^6/uL (4.20-5.40); Red Cell Dist. Width 19.7 % (11.5-14.5); White Blood Cell Count 7.1 10^3/uL (4.8-10.8)
[2023-11-29] MEDS: NSS 1000 IV ×2 (01:29→03:35)
[2023-11-29 01:32] LABS: HCG, Serum Qualitative Screen Negative
[2023-11-29] MEDS: REGLAN 10 MG IV (01:32)
[2023-11-29] MEDS: OFIRMEV 100 IV (01:32)
[2023-11-29] MEDS: TORADOL 30 MG IV (01:33)
[2023-11-29 01:37] LABS: ALT (SGPT) 35 U/L (0-35); AST (SGOT) 72 U/L (14-36); Albumin 4.8 g/dl (3.5-5.0); Alkaline Phosphatase 125 U/L (38-126); Blood Urea Nitrogen 11 mg/dl (7-17); Calcium 9.6 mg/dl (8.4-10.2); Carbon Dioxide 21 mmol/L (22-30); Chloride 93 mmol/L (98-107); Glucose 221 mg/dl (70-99); Sodium 140 mmol/L (135-145); Total Bilirubin 0.6 mg/dl (0.2-1.3); Total Protein 7.3 g/dl (6.3-8.2); eGFR > 60.00
[2023-11-29] MEDS: PROTONIX IV 40 MG IV (01:41)
[2023-11-29 02:00] VITALS: BP 171/94
[2023-11-29 02:01] LABS: B-Hydroxybutyrate > 9 mmol/L (0.02-0.27)
[2023-11-29 03:30] VITALS: BP 140/101
[2023-11-29] MEDS: KLOR-CON 40 MEQ PO (03:35)
[2023-11-29 04:00] VITALS: BP 171/98
== END 2023-11-29 04:25 | disposition home or self-care (01) ==
LOC: EMR 23:55
PROVIDERS: EMERGENCY PHYSICIAN Emergency Medicine; FAMILY PHYSICIAN Nurse Practitioner Adult Health
DX: K31.84 Gastroparesis (principal); R10.9 Unspecified abdominal pain; R42 Dizziness and giddiness; R51.9 Headache, unspecified; R06.02 Shortness of breath; R11.2 Nausea with vomiting, unspecified; I10 Essential (primary) hypertension; E78.00 Pure hypercholesterolemia, unspecified; E11.65 Type 2 diabetes mellitus with hyperglycemia; F17.200 Nicotine dependence, unspecified, uncomplicated
CPT/HCPCS: 99284; 96374; 96375 ×3; 96361 ×2; 80053; 82010; 84703; 85025; 93005

== ENCOUNTER 2024-10-06 18:17 | Inpatient (IN) | payer BC, SELFPAY ==
[2024-10-06] VITALS (12 sets, daily range): BP systolic 146–188; BP diastolic 95–146; BMI 21.9; BMI 19.9
[2024-10-06 16:20] LABS: Glucose - Point of Care 297 mg/dl (70-99)
--- NOTE | 2024-10-06 16:25 | ED.GENMED ---
History of Present Illness
General
Chief Complaint: Abdominal Pain
Time Seen by Provider: 10/06/24 16:18
History of Present Illness
History of Present Illness:
39-year-old female with history of type 1 insulin-dependent diabetes presents to the emergency department for evaluation of intractable nausea vomiting abdominal pain with high sugars over the course of the day. She is concerned her pump may not be
working. Also has a history of gastroparesis. Denies any hematemesis. Denies recent URI symptoms or fevers
Past History
Past History
ED Past Medical History: HTN, Hypercholesterolemia, IDDM and Other (folate def., macrocytic anemia, hepatic steatosis, gastroparesis, 'Heart failure, it was a one time thing')
ED Past Surgical History: (X 2), Gynecological and Orthopedic (Right hip pinning)
Patient has exhibited threatening behavior?: No
PSI?: No
Social History
Tobacco: Smoker
Alcohol: Occasional (Last drink-yesterday, whiskey)
Drug: None
Personal:
Living: with family
Employment: Employed
Review of Systems
Review of Systems
Allergies reviewed?: Yes
All Other Systems: ROS reviewed and negative except as documented in HPI and ROS
Phy Exam
Physical Exam
Physical Exam:
GEN: Ill-appearing, actively retching
HEENT: Oral mucosa moist, no scleral icterus
Cardiac: Tachycardic, regular
Lung: Tachypneic with [place] breathing
Abd: Soft, diffusely tender x 4
MSK: No gross deformity or injuries
Skin: Good color, no pallor or jaundice, no rashes
Neuro: Somnolent but arousable, oriented x 3
Psych: Calm, cooperative
Course
Orders/Labs/Results
Orders:
Orders
10/06/24 Breakfast
2000 calorie (17 carb) Diabetic
10/06/24 16:23
Ondansetron Injectable [Zofran] 4 mg IV NOW STA
10/06/24 16:24
Lactated Ringers [Lr] 2,000 ml IV BOLUS
10/06/24 16:25
Urinalysis Reflex To Culture Urgent
10/06/24 16:31
Complete Blood Count/With Diff Urgent
Venous Blood Gas Urgent
%Oxygen/Room Air: 98
10/06/24 17:03
HYDROmorphone [Dilaudid] 0.5 mg IV NOW STA
10/06/24 17:09
B-Hydroxybutyrate Urgent
Comprehensive Metabolic Panel Urgent
Lipase Urgent
10/06/24 17:43
IV Insert/Care/Rem.- Treatment PRN
Reg Insulin 100 Units/100 ml [Novolin R Insulin Infusion] 100 units in 100 ml IV NOW
10/06/24 17:57
Admit/Transfer Patient As Directed
Co-Sign Provider:
Level of Care: Inpatient admission
Assign to:: ICU
Physician / Group: karen, martha
Diagnosis: DKA
Reason for Hospitalization: DKA
Expected length of stay greater than two midnights?: Yes
ELOS- Estimated Length of Stay in days: 3
I certify the patient meets the requirements for IP care: Yes
10/06/24 17:58
Code Status As Directed
Resuscitation Status: Full Code
PRN Pain Medication Management As Directed
May give lesser potent ordered pain med per pt: Yes
preference::
Protocol:: Medication orders for pain may be administered in a
manner that supports deferring to patient preference
when the pt is:
- Requesting an ordered lesser potent pain medication.
Least to most potent pain medications are defined
as: acetaminophen < NSAID < tramadol < opioids
(morphine, oxycodone, hydromorphone).
- Requesting a lesser dose of the same medication IF
ORDERED.
- Requesting a less intrusive route of administration
if both routes are prescribed by the provider (PO <
IV).
10/06/24 18:04
Entertainment Manager Consult Routine
Consulting Provider: Kelly Demarco
Was physician already notified: Yes
10/06/24 20:34
0.9% Sodium Chloride 1000 ml [Nss] 1,000 ml IV 250 mls/hr
Enoxaparin Sodium [Lovenox] 40 mg SC QPM
Reg Insulin 100 Units/100 ml [Novolin R Insulin Infusion] 100 units in 100 ml IV PER PROTOCOL
Currently infusing. Continue current dose and titrate:: Yes
Trazodone [Desyrel] 150 mg PO HSPRN PRN SLEEP
10/06/24 20:34
Diabetes Management by Nurse Practitioner Routine
Consulting Provider: Crystal Wagner
Was provider already notified?: No
Reason for Consult: Insulin Management
Glycohemoglobin (HgbA1c) Routine
Activity As Directed
Activity Level: As Tolerated
Bedside Glucose Monitoring As Directed
Frequency: Q2H
Intake/ Output As Directed
Frequency: Per unit guidelines
Notify MD As Directed
Notify physician if: Nurse to contact provider when glucose reaches 250 to obtain orders for D5 0.45 NaCl
Vital Signs As Directed
Frequency: Per unit guidelines
DX Deep Vein Thrombosis Video Routine
10/06/24 21:45
Basic Metabolic Panel Q2H
10/06/24 22:00
Potassium Q2
Comment: report result to provider till Potassium >/= 3.3 to 5.3 mEq/L
Sertraline HCl [Zoloft] 100 mg PO HS
10/07/24 00:00
Potassium Q2
Comment: report result to provider till Potassium >/= 3.3 to 5.3 mEq/L
10/07/24 02:00
Potassium Q2
Comment: report result to provider till Potassium >/= 3.3 to 5.3 mEq/L
10/07/24 04:00
Potassium Q2
Comment: report result to provider till Potassium >/= 3.3 to 5.3 mEq/L
10/07/24 06:00
Basic Metabolic Panel IN AM
Complete Blood Count/No Diff IN AM
Potassium Q2
Comment: report result to provider till Potassium >/= 3.3 to 5.3 mEq/L
10/07/24 08:00
Potassium Q2
Comment: report result to provider till Potassium >/= 3.3 to 5.3 mEq/L
Amphet Asp/Amphet/D-Amphet [Adderall] 30 mg PO DAILY
Pantoprazole [Protonix] 20 mg PO DAILY
10/07/24 10:00
Potassium Q2
Comment: report result to provider till Potassium >/= 3.3 to 5.3 mEq/L
10/07/24 12:00
Potassium Q2
Comment: report result to provider till Potassium >/= 3.3 to 5.3 mEq/L
Amphet Asp/Amphet/D-Amphet [Adderall] 15 mg PO NOON
10/08/24 06:00
Basic Metabolic Panel IN AM
Complete Blood Count/No Diff IN AM
10/09/24 06:00
Basic Metabolic Panel IN AM
Complete Blood Count/No Diff IN AM
10/10/24 06:00
Basic Metabolic Panel IN AM
Complete Blood Count/No Diff IN AM
Abnormal Lab Results
10/06/24 10/06/24 10/06/24
16:14 16:31 17:09
WBC 13.5 H 10^3/uL
(4.8-10.8)
RBC 5.47 H 10^6/uL
(4.20-5.40)
Hgb 17.0 H g/dL
(12.0-16.0)
Hct 51.0 H %
(37.0-47.0)
MCH 31.1 H pg
(27.0-31.0)
RDW 15.9 H %
(11.5-14.5)
Abs Immat Gran (auto) 0.2 H 10^3/uL
(0-0.05)
Absolute Neuts (auto) 12.1 H 10^3/uL
(1.4-6.5)
Absolute Lymphs (auto) 0.8 L 10^3/uL
(1.2-3.4)
Immature Gran % 1.1 H %
(0-0.5)
Neutrophils % 90.1 H %
(42.2-75.2)
Lymphocytes % 6.0 L %
(20.5-51.1)
VBG pH 7.18 L*
(7.32-7.43)
VBG pCO2 20 L mmHg
(35-48)
VBG pO2 143 H mmHg
(30-50)
VBG HCO3 7.5 L mmol/L
(22-27)
Carbon Dioxide 6 L* mmol/L
(22-30)
Glucose 314 H mg/dl
(70-99)
AST 84 H U/L
(14-36)
ALT 50 H U/L
(0-35)
Alkaline Phosphatase 170 H U/L
(38-126)
Total Protein 9.7 H g/dl
(6.3-8.2)
Albumin 5.8 H g/dl
(3.5-5.0)
B-Hydroxybutyrate > 9.0 H mmol/L
(0.02-0.27)
POC Glucose 297 H mg/dl
(70-99)
10/06/24 16:31
10/06/24 17:45
Vital Signs
Initial and Last Documented VS:
Initial Vital Signs
Temp Pulse Resp BP Pulse Ox
98.5 F 145 30 181/137 98
10/06/24 16:14 10/06/24 16:14 10/06/24 16:14 10/06/24 16:14 10/06/24 16:14
Last Documented Vital Signs
Temp Pulse Resp BP Pulse Ox
98.0 F 112 19 148/106 99
10/06/24 19:35 10/06/24 19:35 10/06/24 19:35 10/06/24 19:35 10/06/24 19:35
MDM/Problems Addressed
MDM/Problems Addressed:
39-year-old female presents with intractable nausea and vomiting as well as hyperglycemia due to insulin pump failure. She is found to be in severe DKA with elevated anion gap, pH of 7.1. Will be admitted to the ICU, IV fluid resuscitation and
insulin drip initiated in the ED. No focal signs of infection at this point
*Pulse Oximetry
SaO2: 98
Oxygen Mode of Delivery: Room air
Patient hypoxic: no
*Critical Care Note
Total Time (30-74mins, 75-104mins- exclusive of procedures): 45 min
comment:
Critical care time: 45 minutes
Critical care time was exclusive of: Separately billable procedures, treating other patients, and teaching time
Critical care was necessary to treat or prevent imminent or life-threatening deterioration of the following conditions: DKA
Critical care time spent personally by me on the following activities:
[x] Review of old charts
[x] Obtaining history from patient or surrogate
[x] Ordering and review of the laboratory studies
[x] Ordering and review of radiographic studies
[x] Ordering and performing treatments and interventions
[x] Patient patient's response to treatment
[x] Development of treatment plan with patient or surrogate
ED Attending Note
-
Portions of this chart may have been created with voice recognition software.� Occasional wrong word or��sound alike� substitutions may have occurred due to the inherent limitations of voice recognition software.
Discharge Plan
Departure
Patient Disposition: Admit
Date of Disposition: 10/06/24
Time of Disposition: 17:47
Admit to: ICU
Presentation/result/management discussed w/ accepting MD/DO: Hospitalist
Discharge Problem:
DKA, type 1
Interventions
Interventions:
*Risk Screen - Suicide Last Done: 10/06/24 16:14
*General Assessment Last Done: 10/06/24 16:14
*Neglect/Abuse Screening Last Done: 10/06/24 19:35
*ED- Fall Risk Assessment Last Done: 10/06/24 16:14
*ED COVID-19 Vaccine History Last Done: 10/06/24 16:14
XF-Cryeix-Fzbjftbbvw Assessment Last Done: 10/06/24 19:57
[2024-10-06] MEDS: ZOFRAN 4 MG IV ×2 (16:37→19:46)
[2024-10-06] MEDS: LR 2000 IV (16:37)
[2024-10-06 16:38] LABS: Hematocrit 51.0 % (37.0-47.0); Hemoglobin 17.0 g/dL (12.0-16.0); Mean Corp Hgb Conc. 33.3 g/dL (33.0-37.0); Mean Corpuscular Volume 93.2 fL (81.0-99.0); Nucleated Red Blood Cells % 0 %; Platelet Count 302 10^3/uL (130-400); Red Cell Dist. Width 15.9 % (11.5-14.5)
[2024-10-06 16:45] LABS: Venous Blood Gas B.E. -18.6 mmol/L (-4 to +4); Venous Blood Gas O2 Sat % 100.0 %
[2024-10-06] MEDS: DILAUDID 0.5 MG IV ×2 (17:14→23:30)
[2024-10-06 17:36] LABS: ALT (SGPT) 50 U/L (0-35); AST (SGOT) 84 U/L (14-36); Albumin 5.8 g/dl (3.5-5.0); Alkaline Phosphatase 170 U/L (38-126); Blood Urea Nitrogen 17 mg/dl (7-17); Calcium 10.0 mg/dl (8.4-10.2); Carbon Dioxide 6 mmol/L (22-30); Chloride 102 mmol/L (98-107); Glucose 314 mg/dl (70-99); Lipase 258 U/L (23-300); Potassium 4.5 mmol/L (3.5-5.1); Sodium 140 mmol/L (135-145); Total Protein 9.7 g/dl (6.3-8.2); eGFR > 60.00
--- NOTE | 2024-10-06 18:12 | HPS.HSE ---
Family Physician
-
Family Physician: CITLALI Gomez
Chief Complaint
-
N/V
History of Present Illness
HPI
39F on insulin pump HX IDDM, HX DKA, MONTANO, E Coli UTI HX seen at ER:
for evaluation of intractable nausea vomiting abdominal pain with high sugars over the course of the day.
- concerned her pump may not be working.
- HX gastroparesis.
- Denies any hematemesis.
- Denies recent URI symptoms or fevers
Medical History
Past Medical History
Past Medical History: Reports Other
Additional Past Medical History:
Lupus
Hepatic steatosis
DM-I
Peripheral Neuropathy
Gastroparesis
Depression
Vitamin D deficiency
Folate deficiency anemia
Hypothyroidism
Hypertension
History of heart failure
Past Surgical History: Reports Other
Additional Past Surgical History:
Right femoral neck status post screw fixation
Social History
Tobacco: Non-smoker
Alcohol: None
Drug: None
Family History
Family History: Not pertinent
Allergies / Home Medications
Allergies reflects when Allergies were last updated in [facility].
Home Medications with original date entered in [facility]
Allergy/Medication List:
Allergies
Allergy/AdvReac Type Severity Reaction Status Date / Time
No Known Allergies Allergy Verified 10/28/23 14:00
Home Medications
gabapentin 300 mg capsule 300 mg PO TID Pain 01/17/23
levothyroxine 50 mcg tablet 50 mcg PO HS Thyroid 01/17/23
sertraline 100 mg tablet 100 mg PO HS Mental Health/Anxiety 01/17/23
atorvastatin 10 mg tablet 10 mg PO HS High Cholesterol 01/20/23
Patient's Own Insulin 0 unit SC .VIA PUMP Diabetes 06/14/23
clonidine HCl 0.2 mg tablet 0.2 mg PO HS Blood Pressure 06/14/23
gabapentin 100 mg capsule 200 mg PO HS Pain 06/14/23
melatonin 10 mg tablet 10 mg PO HS Sleep 06/14/23
pantoprazole 40 mg tablet,delayed release 40 mg PO DAILYPRN PRN gerd 06/14/23
acetaminophen 500 mg tablet (Tylenol Extra Strength) 1,000 mg PO BIDPRN PRN mild pain 07/22/23
dextroamphetamine-amphetamine 15 mg tablet 15 mg PO NOON 07/22/23
dextroamphetamine-amphetamine 15 mg tablet 30 mg PO DAILY 07/22/23
ibuprofen 200 mg tablet 400 mg PO DAILYPRN PRN mild pain 07/22/23
Review of Systems
-
Constitutional: Reports See HPI and Fatigue
EENT: Reports No Symptoms
Respiratory: Reports No Symptoms
Cardiac: Reports No Symptoms
Abdomen/GI: Reports No Symptoms
: Reports No Symptoms
Musculoskeletal: Reports No Symptoms
Skin: Reports No Symptoms
Neurological: Reports No Symptoms
Endocrine: Reports See HPI
Hematologic/Lymphatic: Reports No Symptoms
Psych: Reports No Symptoms
Physical Exam
Vital Signs
Vital Signs
Temp Pulse Resp BP Pulse Ox
98.5 F 116 17 149/103 99
10/06/24 16:14 10/06/24 17:45 10/06/24 17:45 10/06/24 17:00 10/06/24 17:45
Physical Exam
General: Other (Ill-appearing 38y F in moderte distress due to nausea / abdominal pain.)
HEENT: Other (Dry MM. Neck supple.)
Respiratory: Clear; No Wheezes, Rales or Rhonchi
Cardiac: S1/S2 and Tachycardia; No Murmur
GI: Soft, Non Distended, Normal Bowel Sounds and Other (Diffusely tender.)
Musculoskeletal: No Clubbing, No Cyanosis and No Edema
Neuro: AO x 3
Laboratory Results
-
10/06/24 16:31
Laboratory Results
Total Bilirubin 0.9 mg/dl (0.2-1.3) 10/06/24 17:09
AST 84 U/L (14-36) H 10/06/24 17:09
ALT 50 U/L (0-35) H 10/06/24 17:09
Alkaline Phosphatase 170 U/L (38-126) H 10/06/24 17:09
Lipase 258 U/L (23-300) 10/06/24 17:09
Data Reviewed
-
Lab Data: Labs Reviewed by me
Old Records: Reviewed
Impression/Plan
-
Relevant data
11/29/23 10/06/24 10/06/24
01:17 16:31 17:09
WBC 13.5 H
Hgb 12.7 17.0 H
Plt Count 302
VBG pH 7.18 L*
VBG pCO2 20 L
VBG pO2 143 H
Sodium 140
Potassium 4.5
Carbon Dioxide 6 L*
Creatinine 0.9
eGFR > 60.00
Albumin
HAG MA 5.8 H
27
Last hospitalist admission: 10/28/2023 - 10/31/2023
DISCHARGE DIAGNOSES:
1. Diabetic ketoacidosis.
2. Urinary tract infection.
3. Gastroparesis.
ASSESSMENT & PLAN
Profound DKA suspect malfunctioning pump
Very Hi AG MA @ 27
Preserved renal function
K 4.8
- DKA protocol and IC level care
- Fluid resuscitation NS 250/H
- Insulin gtt
- Accu q2h
- BMP q2h
- f/u UA
- DM PARTS SALES ASSOCIATE consult
Current CBC seems from severely hemoconcentrated spec
- f/u CBC in response to Fluid resuscitation
MONTANO with abnormal LFTs due to IDDM
- trend LFTs
Known and pre existing condition:
HX E coli UTI. Discharged on cefdinir to complete 7 total days. in October 2023
Benign hypertension.
Hypothyroidism, on replacement.
Peripheral neuropathy, on gabapentin.
HX HFpEF.
HX ADHD.
DVT Px: LMWH
Full code
ICU
Total Critical Care Time__45___ minutes.
I was immediately available to the patient and staff. I personally examined, reviewed labs, diagnostic images/reports, interpretations, treatment plans, discussed patient care with other providers and family or caregivers (if patient is unable to
make decisions), entered orders as appropriate and documented the medical record.
[2024-10-06] MEDS: NOVOLIN R INSULIN INFUSION 100 IV (18:25)
[2024-10-06] MEDS: PEPCID 20 MG IV (18:40)
[2024-10-06 20:36] LABS: Blood Urea Nitrogen 16 mg/dl (7-17); Calcium 10.0 mg/dl (8.4-10.2); Carbon Dioxide 15 mmol/L (22-30); Chloride 106 mmol/L (98-107); Estimated Creatinine Clearance 125 ml/min; Glucose 127 mg/dl (70-99); Sodium 140 mmol/L (135-145); eGFR > 60.00
[2024-10-06 20:52] LABS: Glucose - Point of Care 70 mg/dl (70-99)
--- NOTE | 2024-10-06 21:00 | PTCARENOTE ---
Received pt. from ED. Drowsy, but arousable. Oriented. Pt. noted to be dry heaving. Per ED RN, peggy given in ED prior to arriving to ICU. Pt. is afebrile. Heart rhythm sinus tachy. Currently on room air. Lungs sound diminished. NPO, dry heaving.
Due to void. Skin as documented. Discussed plan of care. Vital signs stable at this time.
[2024-10-06] MEDS: D5/0.45%NSS with KCL 20 MEQ 1000 IV (21:02)
[2024-10-06 21:15] LABS: Glucose - Point of Care 84 mg/dl (70-99)
[2024-10-06] MEDS: LOVENOX 40 MG SC (22:00)
[2024-10-06] MEDS: ZOLOFT PO (22:02)
[2024-10-06 22:11] LABS: Glucose - Point of Care 171 mg/dl (70-99)
[2024-10-06 23:12] LABS: INR 1.28; PT 16.3 Sec (11.4-14.6)
[2024-10-06 23:13] LABS: APTT 30.3 Sec (23.4-35.0)
[2024-10-06 23:13] LABS: Glucose - Point of Care 207 mg/dl (70-99)
[2024-10-06 23:16] LABS: Blood Urea Nitrogen 14 mg/dl (7-17); Calcium 9.4 mg/dl (8.4-10.2); Carbon Dioxide 12 mmol/L (22-30); Chloride 105 mmol/L (98-107); Estimated Creatinine Clearance 117 ml/min; Glucose 230 mg/dl (70-99); Potassium 3.9 mmol/L (3.5-5.1); Sodium 139 mmol/L (135-145); eGFR > 60.00
[2024-10-06] MEDS: OFIRMEV 100 IV (23:49)
[2024-10-07] VITALS (22 sets, daily range): BP systolic 95–183; BP diastolic 79–116; BMI 20.4
--- NOTE | 2024-10-07 | PTCARENOTE ---
Pt. nausea/dry heaving improving. C/o pain throughout abdomen. PRN medication given, see MAR. Continuing insulin gtt per DKA protocol. Vital signs stable at this time.
[2024-10-07 00:17] LABS: Glucose - Point of Care 226 mg/dl (70-99)
[2024-10-07] MEDS: D5/0.45%NSS with KCL 20 MEQ 1000 IV ×3 (01:07→12:02)
[2024-10-07 01:13] LABS: Glucose - Point of Care 205 mg/dl (70-99)
[2024-10-07 02:09] LABS: Glucose - Point of Care 240 mg/dl (70-99)
[2024-10-07 03:12] LABS: Glucose - Point of Care 248 mg/dl (70-99)
[2024-10-07] MEDS: ZOFRAN 4 MG IV ×2 (03:22→16:35)
[2024-10-07] MEDS: PEPCID 20 MG IV (03:38)
[2024-10-07] MEDS: NSS (PRESERVATIVE FREE) 8 ML IV (03:38)
[2024-10-07 03:57] LABS: Blood Urea Nitrogen 12 mg/dl (7-17); Calcium 8.9 mg/dl (8.4-10.2); Carbon Dioxide 16 mmol/L (22-30); Chloride 106 mmol/L (98-107); Estimated Creatinine Clearance 117 ml/min; Glucose 277 mg/dl (70-99); Magnesium 1.3 mg/dl (1.6-2.3); Potassium 4.2 mmol/L (3.5-5.1); Sodium 137 mmol/L (135-145); eGFR > 60.00
--- NOTE | 2024-10-07 04:00 | PTCARENOTE ---
Pt. assessment unchanged. AM labs drawn. Vital signs stable at this time.
[2024-10-07 04:08] LABS: Hematocrit 42.1 % (37.0-47.0); Hemoglobin 14.2 g/dL (12.0-16.0); Mean Corp Hgb Conc. 33.7 g/dL (33.0-37.0); Mean Corpuscular Volume 92.9 fL (81.0-99.0); Platelet Count 195 10^3/uL (130-400); Red Cell Dist. Width 15.5 % (11.5-14.5)
[2024-10-07 04:19] LABS: Glucose - Point of Care 240 mg/dl (70-99)
[2024-10-07] MEDS: DILAUDID 0.5 MG IV ×3 (04:35→17:46)
[2024-10-07] MEDS: MAGNESIUM SULFATE 50 IV (04:44)
[2024-10-07 05:08] LABS: Glucose - Point of Care 233 mg/dl (70-99)
[2024-10-07 06:15] LABS: Glucose - Point of Care 274 mg/dl (70-99)
[2024-10-07 07:02] LABS: Glucose - Point of Care 293 mg/dl (70-99)
--- NOTE | 2024-10-07 07:11 | CON.INTV ---
Addendum entered and electronically signed by Kelly Demarco MD 10/07/24 09:48:
On reevaluation, anion gap closed, bicarb improved, patient no longer nauseous.
- Lantus 18 units SQ stat, discontinue insulin infusion and dextrose containing fluids 2 hours after giving first dose of Lantus
- Start aspart 5 units with each meal, sliding scale insulin in addition, diabetic diet
- Once patient is off insulin drip, can be transferred out of ICU
- Fibrous Wallboard Inspector service will sign off once patient is transferred out of ICU, please call as needed
Original Note:
Consultation
Consultation Request
Date/Time Consultation Requested: 10/06/2024
Date/Time Consultation Performed: 10/07/2024
Medical History
-
Chief Complaint: Nausa and vomiting.
History of Present Illness:
Patient is a 39-year-old female with known history of insulin infusion managed with insulin pump at home, who presented to the hospital with intractable nausea vomiting, abdominal pain with hyperglycemia. There was concern for some pump dysfunction
leading to her presentation. No reported history of fever, chills, hematemesis, melena. Also has reported history of gastroparesis which is likely confounding the symptoms. Workup in the emergency room was suggestive of diabetic ketoacidosis and
patient was admitted to the ICU for further management. Fibrous Wallboard Inspector service was consulted for input.
Past Medical History
Past Medical History: Reports Other
Additional Past Medical History:
Lupus
Hepatic steatosis
DM-I
Peripheral Neuropathy
Gastroparesis
Depression
Vitamin D deficiency
Folate deficiency anemia
Hypothyroidism
Hypertension
History of heart failure
Past Surgical History: Reports Other
Additional Past Surgical History:
Right femoral neck status post screw fixation
Social History
Tobacco: Non-smoker
Alcohol: None
Drug: None
Family History
Family History: Not pertinent
Allergies / Home Medications
Allergies
Allergy/AdvReac Type Severity Reaction Status Date / Time
No Known Allergies Allergy Verified 10/06/24 16:18
Home Medications
�Medication �Instructions �Recorded �Confirmed �Last Taken �Type
sertraline 100 mg tablet 100 mg PO HS Mental Health/Anxiety 01/17/23 10/06/24 10/05/24 History
dextroamphetamine-amphetamine 15 15 mg PO NOON Mental Health/Anxiety 07/22/23 10/06/24 10/05/24 History
mg tablet
dextroamphetamine-amphetamine 15 30 mg PO DAILY Mental 07/22/23 10/06/24 10/05/24 History
mg tablet (Adderall) Health/Anxiety
Patient Own Insulin Pump 1 sliding scale dose SC .VIA 10/06/24 10/06/24 10/06/24 History
HUMALOG
ondansetron HCl 4 mg tablet 4 mg PO Q6HPRN PRN NAUSEA 10/06/24 10/06/24 Unknown History
pantoprazole 20 mg tablet,delayed 20 mg PO DAILY 10/06/24 10/06/24 10/05/24 History
release (Protonix)
trazodone 150 mg tablet 150 mg PO HSPRN PRN SLEEP 10/06/24 10/06/24 Unknown History
Review of Systems
-
Hematologic/Lymphatic: Other (All 14 systems reviewed and negative except as stated above in the history of present illness.)
Vitals / Labs / Diagnostic Testing
Vital Signs
Temp Pulse Resp BP Pulse Ox
98.6 F 91 16 111/82 99
10/07/24 03:00 10/07/24 06:30 10/06/24 20:30 10/07/24 06:00 10/07/24 05:00
Lab Data
10/07/24 03:30
Laboratory Results
10/06/24
22:51
PT 16.3 H
INR 1.28
APTT 30.3
Diagnostic Testing:
Physical Exam
-
HEENT: Normocephalic
Cardiovascular: S1/S2
Respiratory: Clear
GI: Soft and Non Distended
Neurology: Awake and Alert
Skin: Warm
General: Comfortable
Assessment
-
#1. Acute diabetic ketoacidosis with known history of type 1 diabetes
-Venous blood gas on admission 7.18, 20, consistent with metabolic acidosis with respiratory complete cessation
- Malfunction suspected to be the etiology.
- Hemoconcentration on admission has significantly improved hemoglobin down to 14.2 from 17 on admission. Normal WBC count.
- S/p IV fluid resuscitation and insulin infusion, serum bicarb level continues to improve and anion gap is closing
- Serial labs as ordered, replacing both low magnesium and low phosphorus
- Currently receiving D5 half-normal with potassium chloride along with insulin infusion. Once gap is closed, bicarb above 17 and patient no longer having nausea and vomiting, will switch to subcu insulin.
Other medical diagnoses:
- Hypertension, hyperlipidemia
- Heart failure with preserved ejection fraction, lower maintenance IV fluid rate to 100 mL/h from 250 mL/h
- History of abnormal LFTs, suspected nonalcoholic steatohepatitis
- Hypothyroidism
- Peripheral neuropathy
- History of ADHD
Critical Care time 52 mins -- The patient is admitted for acute critical illness for the treatment of vital organ failure and/or prevention of further life-threatening conditions. Total care includes time spent in review of history, physical exam,
medications, hemodynamic/ventilator parameters, laboratory data, imaging and discussion with house staff, pharmacy, respiratory therapy, ceo & board director, and nursing.
Data:
CXR 09/2024: No acute cardiopulmonary process
Stress test 12/2021: Below average exercise tolerance without clear evidence of ischemia.
ECHO 12/2021: LV ejection fraction is 50-55% by Bobo's method of discs.
Possible mid inferolateral wall hypokinesis.
Mild concentric left ventricular hypertrophy.
Mild to moderate mitral regurgitation.
Estimated PASP 45-50 mmHg and RA of 8 mmHg.
No prior study available for comparison.
--- NOTE | 2024-10-07 07:45 | PTCARENOTE ---
Assumed care of patient. Pt rec'd sleeping. Easily arousable. A&Ox3. Pleasant. Denies nausea. Mild abdominal discomfort. C/o throat/mid back pain 09/27...see mar. FARMER's. Teeth brushed/mouthwash used by pt. S1 S2 reg w/ NSR on monitor. +PP.
No edema. On R/A...lungs clear. Abdomen round..hypo BS. NPO. Voided on nights...no void this am. Skin WNL. 22P RAC w/ IVF's infusing. 22P LAC w/ insulin gtt infusing per protocol. VS documented. Call wallace within reach. Will continue to
monitor.
--- NOTE | 2024-10-07 07:46 | W.PN.HOSP.TC ---
Today's Communication/Plan
-
await resolution of DKA and bridging to SQ insulin - currently running 4units/h, previous basal rate as per DM RN 1.5u/h, total 36 per day - will need 18Lantus daily and 6Lispro AC
Assessment / Plan
Assessment / Plan
39yo F with DM type 1, ADHD, GERD, gastroparesis, MONTANO came with nausea, vomiting and was found in DKA. She was concerned that during her most recent pump installation she accidentally did not follow protocol and hit some buttons on device that she
was not supposed to. Also she is out of her supplements for pump until October 10. Dehydrated on admission, but rapidly improving
A/P:
#DM type 1 with DKA
DMP q4h, IVF with potassium as per protocol while oon insulin drip
Start bridging to SQ insulin when DKA resolves - patient used it prior and will be comfortable to be discharged home on it until she will get more pump supplies
Advised for frequent (up to 5 times a day) BG checks when replaced pump to ensure BG numbers do not remain high
#Dehydration with leukocytosis on admission
no respiratory/urinary symptoms
GI symptoms resolved on DKA treatment
Leukocytosis resolving off Abx
#ADHD
#GERD
#Anxiety
#Insomnia
#MONTANO with chronic transaminitis and elevated alk.phos
cont home meds
DVT ppx lovenox
Full code
I have spent at least 59min of critical care time reviewing chart, test results, communication with consultnat RN and providing direct patient care
Anticipated Discharge: 24 - 48 hours
Subjective/Interval History
-
Date of Service: October 07, 2024
Objective Data
-
Labs:
Laboratory Results
10/06/24 10/06/24 10/06/24
17:45 19:45 20:03
WBC
Hgb
Hct
Plt Count
PT
INR
APTT
Sodium Cancelled Cancelled 140
Potassium Cancelled Cancelled
Chloride Cancelled Cancelled 106
Carbon Dioxide Cancelled Cancelled 15 L
BUN Cancelled Cancelled 16
Creatinine Cancelled Cancelled 0.6
Glucose Cancelled Cancelled 127 H
Calcium Cancelled Cancelled 10.0
10/06/24 10/06/24 10/06/24
21:45 22:00 22:15
WBC
Hgb
Hct
Plt Count
PT
INR
APTT
Sodium Cancelled Cancelled
Potassium Cancelled Cancelled Cancelled
Chloride Cancelled Cancelled
Carbon Dioxide Cancelled Cancelled
BUN Cancelled Cancelled
Creatinine Cancelled Cancelled
Glucose Cancelled Cancelled
Calcium Cancelled Cancelled
10/06/24 10/07/24 10/07/24
22:51 00:00 03:30
WBC 10.1
Hgb 14.2
Hct 42.1
Plt Count 195 D
PT 16.3 H
INR 1.28
APTT 30.3
Sodium 139 Pending 137
Potassium 3.9 Pending 4.2
Chloride 105 Pending 106
Carbon Dioxide 12 L* Pending 16 L
BUN 14 Pending 12
Creatinine 0.6 Pending 0.5 L
Glucose 230 H Pending 277 H
Calcium 9.4 Pending 8.9
10/07/24 10/07/24 10/07/24
04:00 08:00 12:00
WBC
Hgb
Hct
Plt Count
PT
INR
APTT
Sodium Pending Pending Pending
Potassium Pending Pending Pending
Chloride Pending Pending Pending
Carbon Dioxide Pending Pending Pending
BUN Pending Pending Pending
Creatinine Pending Pending Pending
Glucose Pending Pending Pending
Calcium Pending Pending Pending
Vital Signs:
Vital Signs
Temp Pulse Resp BP Pulse Ox
98.6 F 91 16 114/88 99
10/07/24 03:00 10/07/24 07:00 10/06/24 20:30 10/07/24 07:00 10/07/24 05:00
I&O
10/06/24 10/07/24 10/08/24
06:59 06:59 06:59
Intake Total 2676.0 / 2930.0 254 / 254
Output Total 400 / 400
Balance 2276.0 / 2530.0 254 / 254
Review of Systems
-
History Source: Patient
All other systems: Reviewed and negative
Physical Exam
-
General: No Apparent Distress
HEENT: Normocephalic
Respiratory: Clear to Auscultation
Cardiac: Regular Rhythm
GI: Soft, Nontender and Nondistended
Neuro: Awake, Alert, Oriented and AO x 3
Psych: Calm
[2024-10-07] MEDS: PROTONIX PO (08:04)
[2024-10-07 08:10] LABS: Glucose - Point of Care 286 mg/dl (70-99)
[2024-10-07 09:10] LABS: Glucose - Point of Care 221 mg/dl (70-99)
[2024-10-07 09:15] LABS: Blood Urea Nitrogen 9 mg/dl (7-17); Calcium 8.5 mg/dl (8.4-10.2); Carbon Dioxide 18 mmol/L (22-30); Chloride 107 mmol/L (98-107); Estimated Creatinine Clearance 119 ml/min; Glucose 276 mg/dl (70-99); Potassium 4.2 mmol/L (3.5-5.1); Sodium 134 mmol/L (135-145); eGFR > 60.00
[2024-10-07 09:31] LABS: Glycohemoglobin (HgbA1c) 6.3 % (4.0-5.6)
[2024-10-07 10:11] LABS: Glucose - Point of Care 209 mg/dl (70-99)
[2024-10-07] MEDS: LANTUS 0.18 UNITS SC (10:34)
[2024-10-07 11:10] LABS: Glucose - Point of Care 176 mg/dl (70-99)
--- NOTE | 2024-10-07 12:00 | PTCARENOTE ---
Gerda provided @ 1030 per MD orders. No major changes in physical assessment since am. Pt resting comfortably. Call wallace within reach.
[2024-10-07] MEDS: NOVOLOG FLEXPEN-MODERATE RESISTANCE SC (12:04)
[2024-10-07 12:16] LABS: Glucose - Point of Care 143 mg/dl (70-99)
--- NOTE | 2024-10-07 12:35 | PTCARENOTE ---
Insulin gtt and IVF's d/c'd per .
[2024-10-07 14:16] LABS: Glucose - Point of Care 151 mg/dl (70-99)
--- NOTE | 2024-10-07 16:00 | PTCARENOTE ---
No major changes in physical assessment. Pt resting comfortably w/ at bedside. Call wallace within reach.
[2024-10-07 16:08] LABS: Urine Character Clear (Clear)
[2024-10-07 16:18] LABS: Urine Red Blood Cell 0-2 /HPF (0-2); Urine Squamous Cell >30 /LPF (Few); Urine White Cell 0-2 /HPF (0-5)
--- NOTE | 2024-10-07 16:30 | CM ---
Addendum entered by Lianna Youngblood 10/07/24 16:39:
Patient confirmed that she lives with her and children in a split level home, patient PCP is [facility] and she uses the [facility] on [address] in [place]. Patient has no other needs at this time.
Original Note:
Patient sleeping when CM attempted to visit. Patient awaiting insulin pump per nursing and plan is for discharge home when it is available. CM will continue to follow for discharge planning needs.
[2024-10-07] MEDS: PROTONIX 20 MG PO (16:35)
[2024-10-07] MEDS: NOVOLOG FLEXPEN-MODERATE RESISTANCE 3 UNITS SC (17:02)
[2024-10-07 17:09] LABS: Glucose - Point of Care 240 mg/dl (70-99)
--- NOTE | 2024-10-07 17:30 | PTCARENOTE ---
Pt requested protonix from am....BS 240...dinner ordered. Pt w/ nausea and vomited small amt of bile (100mls). Zofran provided. BS covered per orders. Dilaudid given for abdominal pain from dry heaving/vomiting. Will continue to monitor closely.
[2024-10-07] MEDS: D5/0.45%NSS with KCL 20 MEQ IV (18:14)
[2024-10-07] MEDS: LOVENOX SC (18:17)
--- NOTE | 2024-10-07 20:00 | PTCARENOTE ---
Rec'd pt asleep, easily arousable, cooperative, SR, + pulses , no edema, skin warm/dry, RA, lungs clear, sat 100, hypo bowel sounds, no appetite, nauseated, voids in bathroom
[2024-10-07] MEDS: BENADRYL 25 MG IV (20:52)
[2024-10-07 21:41] LABS: Glucose - Point of Care 260 mg/dl (70-99)
[2024-10-07] MEDS: REGLAN 10 MG IV (21:50)
[2024-10-07] MEDS: ZOLOFT PO (21:51)
--- NOTE | 2024-10-07 21:54 | PTCARENOTE ---
vomited 100 ml bile, reglan 10 mg iv given
[2024-10-07] MEDS: NOVOLOG FLEXPEN 5 UNITS SC (22:02)
--- NOTE | 2024-10-07 22:05 | PTCARENOTE ---
novolog 5units sc given for acch 260
[2024-10-07] MEDS: LOPRESSOR 5 MG IV (22:16)
--- NOTE | 2024-10-07 22:18 | PTCARENOTE ---
lopressor 5mg iv given for elevated bp
[2024-10-08] VITALS (20 sets, daily range): BP systolic 103–166; BP diastolic 63–109; BMI 20.4
[2024-10-08] MEDS: APRESOLINE 10 MG IV ×2 (00:53→05:02)
[2024-10-08] MEDS: DILAUDID 0.5 MG IV ×5 (00:59→21:57)
--- NOTE | 2024-10-08 01:00 | PTCARENOTE ---
sys reviewed, dilaudid 0.5 mg iv given for abd discomfort, apresoline 10mg iv given for elevated bp
[2024-10-08 03:46] LABS: Hematocrit 42.4 % (37.0-47.0); Hemoglobin 14.2 g/dL (12.0-16.0); Mean Corp Hgb Conc. 33.5 g/dL (33.0-37.0); Mean Corpuscular Volume 92.2 fL (81.0-99.0); Platelet Count 189 10^3/uL (130-400); Red Cell Dist. Width 15.9 % (11.5-14.5)
[2024-10-08] MEDS: TUMS EX (EXTRA STRENGTH) CHEWABLE TABLET 600 MG PO ×2 (03:49→08:03)
--- NOTE | 2024-10-08 04:05 | PTCARENOTE ---
sys reviewed, 2 tums po given for indigestion at pt request
[2024-10-08 04:14] LABS: Blood Urea Nitrogen 5 mg/dl (7-17); Calcium 9.5 mg/dl (8.4-10.2); Carbon Dioxide 16 mmol/L (22-30); Chloride 105 mmol/L (98-107); Estimated Creatinine Clearance 120 ml/min; Glucose 317 mg/dl (70-99); Potassium 5.4 mmol/L (3.5-5.1); Sodium 138 mmol/L (135-145); eGFR > 60.00
[2024-10-08] MEDS: NOVOLOG FLEXPEN 10 UNITS SC (04:58)
--- NOTE | 2024-10-08 04:59 | PTCARENOTE ---
Addendum entered by Priyanka Miller RN 10/08/24 05:03:
apresoline 10mg iv given for bp
Original Note:
glucose 317, 10 units novolog sc given as ordered
[2024-10-08 07:57] LABS: Venous Blood Gas B.E. -4.1 mmol/L (-4 to +4); Venous Blood Gas O2 Sat % 98.7 %
[2024-10-08] MEDS: PROTONIX PO (08:04)
--- NOTE | 2024-10-08 08:17 | W.PN.INTV ---
Today's Communication / Plan
Recommendations
IVF
q1hr fingersticks while on insulin gtt
Avoid hypoglycemia and hypokalemia
Diabetic CORE MOUNTER on board
Anti-emetics as needed
Do not bridge off insulin gtt until AG is closed x2 and serum HCO3 is >18
Assessment
-
#1. Acute diabetic ketoacidosis with known history of type 1 diabetes
-Venous blood gas on admission 7.18, 20, consistent with metabolic acidosis with respiratory compensation
- DKA suspected to be the etiology.
- Hemoconcentration on admission has significantly improved hemoglobin down to 14.2 from 17 on admission. Normal WBC count.
- S/p IV fluid resuscitation and insulin infusion, serum bicarb level continues to improve and anion gap is closing
- Serial labs as ordered, replacing both low potassium, magnesium and phosphorus
- Currently receiving D5 half-normal without KCl given K this AM was 5.4 - -> continue to trend and add potassium to dextrose containing fluids once serum potassium level is <5.3
- Once anion gap is closed x 2 with serum bicarbonate level >18, can bridge off insulin drip
- Continue with antiemetics as needed, monitoring QTc with goal <480ms
- Diabetic CORE MOUNTER on board
Other medical diagnoses:
- Hypertension, hyperlipidemia
- Heart failure with preserved ejection fraction, monitor for acute pulm edema while on IVF; last echo on 12/31/2021 showed LVEF 50-55% with mild concentric LV, mild-mod MR
- History of abnormal LFTs, suspected nonalcoholic steatohepatitis
- Hypothyroidism
- Peripheral neuropathy
- History of ADHD
Continue ICU level of care with q1hr fingersticks while on insuling gtt.
Critical care statement: A total of 38 minutes of critical care time was provided for this patient today. This includes management of unstable vital signs, evaluation of the patient at bedside, reviewing the patient�s pertinent medical records
including radiographs, microbiology, laboratory evaluations, and��discussion with primary team, consultants, pharmacy, nutrition, physical therapy, case management, charge nurse, critical care nursing, and respiratory therapy.
Data:
CXR 09/2024: No acute cardiopulmonary process
Stress test 12/2021: Below average exercise tolerance without clear evidence of ischemia.
ECHO 12/2021: LV ejection fraction is 50-55% by Bobo's method of discs.
Possible mid inferolateral wall hypokinesis.
Mild concentric left ventricular hypertrophy.
Mild to moderate mitral regurgitation.
Estimated PASP 45-50 mmHg and RA of 8 mmHg.
No prior study available for comparison.
Subjective Dataa
Subjective Data
Date of Service:
Date of Service: October 08, 2024
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
Subjective:
Patient seen and evaluated this morning. Heart rate 106, BP 134/87. Insulin gtt at 3 units/hr. She has a insulin pump but supplies unavailable until 10/10. Patient currently feels nauseous with some abdominal discomfort. She otherwise denies
chest pain, MOURA, fevers or chills.
Review of Systems
General: Other (Negative unless mentioned above)
Objective Data
Data Reviewed
Vital Signs / I&O / Oxygen:
Vital Signs
Temp Pulse Resp BP Pulse Ox
98.9 F 110 23 110/68 98
10/08/24 07:18 10/08/24 08:00 10/08/24 08:00 10/08/24 08:00 10/08/24 08:00
Intake and Output
10/07/24 10/08/24 10/09/24
06:59 06:59 06:59
Intake Total 2676.0 / 2930.0 1267 / 1267
Output Total 400 / 400 1425 / 1425
Balance 2276.0 / 2530.0 -158 / -158
SaO2 98
Physical Exam
General: Respiratory Distress (negative), Chills (negative) and Sweats (negative)
HEENT: Normocephalic and Anicteric
Cardiovascular: S1-S2 and Peripheral Edema (negative)
Respiratory: Wheeze (negative), Crackles (negative), Rhonchi (negative) and Non-Labored Respirations
GI: Soft, Non Distended, Non Tender and Normal Bowel Sounds
Neurology: AO x 3 and Tremors (negative)
Skin: Warm, Dry, Cyanosis (negative) and Jaundice (negative)
Labs/Micro/Reports
Lab Data
10/08/24 03:37
[2024-10-08 08:18] LABS: Glucose - Point of Care 249 mg/dl (70-99)
--- NOTE | 2024-10-08 08:27 | PTCARENOTE ---
Received pt this am, reportedly feeling better after dilaudid for abdominal pain. Pt still c/o nausea, heartburn from dry heaving overnight. Little appetite. Denies sob, chest pressure/pain. C/o neck stiffness, asking for tylenol. No current
order. Dr Gutierrez made aware of above. Will restart insulin drip once order confirmed.
Pt does not have insulin pump supplies. She reports that she used last infusion device and doesn't receive more supplies until the . She will reach out to company to see if they can deliver sooner.
[2024-10-08] MEDS: NOVOLOG FLEXPEN-MODERATE RESISTANCE SC ×2 (08:35→11:32)
[2024-10-08] MEDS: LANTUS SC (08:36)
--- NOTE | 2024-10-08 08:57 | PN.DE.MGMTRT ---
Insulin Management
- -
10/08/2024 Diabetes Management Consult
Patient admitted 10/06 with intractable vomiting, nausea and abdominal pain, found to be in DKA. Glucose 314, GAP 32. PMH type 1 diabetes, gastroparesis, HTN, MONTANO, anxiety, ADHD, HCL. Prior to admission was using OmniPod with Humalog insulin and
DexCom G6. A1C on admission 6.3%.
Patient is awake alert and oriented. States she is too sick to discuss diabetes care. Did state she is followed by [facility] and that she used her last POD but they are due to arrive 10/10.
Transitioned from insulin infusion 10/07. This AM GAP 17. To restart insulin infusion.
Discussed with nurse
Will follow for transition to subcutaneous insulin as no PODS available.
Diabetes History
- -
Type of Diabetes: 1
Pre-Admission Diabetes Regimen
10/07/24 10/07/24 10/07/24
00:00 04:00 08:47
Creatinine Cancelled Cancelled 0.4 L
10/07/24 10/08/24
12:00 03:37
Creatinine Cancelled 0.4 L
Lab Results
Hemoglobin A1c Cancelled 10/06/24 20:34
Insulin Pump Settings
IP Diabetes Regimen
10/07/24 10/07/24 10/07/24
00:00 04:00 08:47
Glucose Cancelled Cancelled 276 H
POC Glucose
10/07/24 10/07/24 10/07/24
08:59 10:00 10:58
Glucose
POC Glucose 221 H 209 H 176 H
10/07/24 10/07/24 10/07/24
12:00 12:05 14:05
Glucose Cancelled
POC Glucose 143 H 151 H
10/07/24 10/07/24 10/08/24
16:58 21:30 03:37
Glucose 317 H
POC Glucose 240 H 260 H
10/08/24
08:07
Glucose
POC Glucose 249 H
Amount consumed: 0
Patient Education
[2024-10-08] MEDS: NOVOLIN R INSULIN INFUSION 100 IV (09:24)
[2024-10-08] MEDS: D5/0.45%NACL 1000 IV (09:24)
[2024-10-08] MEDS: TYLENOL 650 MG PO (09:30)
[2024-10-08 09:34] LABS: Glucose - Point of Care 263 mg/dl (70-99)
--- NOTE | 2024-10-08 09:36 | PTCARENOTE ---
insulin drip resumed as ordered. repeat labs 1130
[2024-10-08] MEDS: REGLAN 10 MG IV (09:48)
--- NOTE | 2024-10-08 10:06 | PTCARENOTE ---
Pt dry heaving. Reglan already given.
--- NOTE | 2024-10-08 10:10 | W.PN.HOSP.TC ---
Today's Communication/Plan
-
reatrt insulin with IVF
follow potassium and BHB, bridge to lantus, when BHB normal
If nausea/vomiting not improving - consider imaging
re-check LFT, Lipase, lipids
Assessment / Plan
Assessment / Plan
39yo F with DM type 1, ADHD, GERD, gastroparesis, MONTANO came with nausea, vomiting and was found in DKA. She was concerned that during her most recent pump installation she accidentally did not follow protocol and hit some buttons on device that she
was not supposed to. Also she is out of her supplements for pump until October 10. Dehydrated on admission, but initially rapidly improving, bridged to SQ insulin on 10/07/24, re-developed symptomatic ketosis on 10/08/24
A/P:
#DM type 1 with DKA with re-currence of ketosis
DMP q4h, IVF with potassium as per protocol while on insulin drip
Start bridging to SQ insulin when DKA resolves - patient used it prior and will be comfortable to be discharged home on it until she will get more pump supplies. Initially bridged with 18units Lantus, but developed symptoms thereafter - will
consider 25units on next bridging
Advised for frequent (up to 5 times a day) BG checks when replaced pump to ensure BG numbers do not remain high
#Dehydration with leukocytosis on admission
no respiratory/urinary symptoms
GI symptoms resolved on DKA treatment
Leukocytosis resolving off Abx
#ADHD
#GERD
#Anxiety
#Insomnia
#MONTANO with chronic transaminitis and elevated alk.phos
cont home meds
DVT ppx lovenox
Full code
I have spent at least 59min of critical care time reviewing chart, test results, communication with consultnat RN and providing direct patient care
Anticipated Discharge: 24 - 48 hours
Subjective/Interval History
-
Date of Service: October 08, 2024
Objective Data
-
Labs:
Laboratory Results
10/08/24 10/08/24 10/08/24
03:37 10:00 12:00
WBC 8.9
Hgb 14.2
Hct 42.4
Plt Count 189
Sodium 138 Pending
Potassium 5.4 H D Cancelled Pending
Chloride 105 Pending
Carbon Dioxide 16 L Pending
BUN 5 L Pending
Creatinine 0.4 L Pending
Glucose 317 H Pending
Calcium 9.5 Pending
10/08/24 10/08/24 10/08/24
14:00 16:00 18:00
WBC
Hgb
Hct
Plt Count
Sodium Pending
Potassium Pending Pending Pending
Chloride Pending
Carbon Dioxide Pending
BUN Pending
Creatinine Pending
Glucose Pending
Calcium Pending
10/08/24 10/08/24
20:00 22:00
WBC
Hgb
Hct
Plt Count
Sodium Pending
Potassium Pending Pending
Chloride Pending
Carbon Dioxide Pending
BUN Pending
Creatinine Pending
Glucose Pending
Calcium Pending
Vital Signs:
Vital Signs
Temp Pulse Resp BP Pulse Ox
98.9 F 92 13 126/95 98
10/08/24 07:18 10/08/24 10:00 10/08/24 10:00 10/08/24 10:00 10/08/24 08:00
I&O
10/07/24 10/08/24 10/09/24
06:59 06:59 06:59
Intake Total 2676.0 / 2930.0 1267 / 1267
Output Total 400 / 400 1425 / 1425
Balance 2276.0 / 2530.0 -158 / -158
Review of Systems
-
History Source: Patient
All other systems: Reviewed and negative
Abdomen/GI: Reports Abdominal Pain, Nausea and Vomiting
Physical Exam
-
General: Appears in Distress
HEENT: Moist Mucous Membranes
GI: Soft, Nondistended and Tender
Neuro: Awake, Alert, Oriented and AO x 3
Psych: Calm
[2024-10-08 10:43] LABS: Glucose - Point of Care 238 mg/dl (70-99)
[2024-10-08 10:48] LABS: ALT (SGPT) 38 U/L (0-35); AST (SGOT) 67 U/L (14-36); Albumin 4.6 g/dl (3.5-5.0); Alkaline Phosphatase 164 U/L (38-126); HDL Cholesterol 41 mg/dl; LDL Cholesterol, Calculated 188 mg/dl; Lipase 115 U/L (23-300); Total Protein 7.6 g/dl (6.3-8.2); Very Low Density Lipoprotein 18 mg/dl (0-30)
[2024-10-08 11:41] LABS: Glucose - Point of Care 200 mg/dl (70-99)
[2024-10-08 12:29] LABS: Blood Urea Nitrogen 5 mg/dl (7-17); Calcium 9.5 mg/dl (8.4-10.2); Carbon Dioxide 18 mmol/L (22-30); Chloride 105 mmol/L (98-107); Estimated Creatinine Clearance 120 ml/min; Glucose 238 mg/dl (70-99); Magnesium 1.7 mg/dl (1.6-2.3); Potassium 3.2 mmol/L (3.5-5.1); Sodium 138 mmol/L (135-145); eGFR > 60.00
[2024-10-08] MEDS: PROTONIX IV 20 MG IV (12:45)
[2024-10-08] MEDS: NSS (PRESERVATIVE FREE) 10 ML IV (12:45)
--- NOTE | 2024-10-08 12:45 | PTCARENOTE ---
Pt resting comfortably after dilaudid for abd discomfort secondary to wretching. Labs drawn and sent as ordered. Otherwise no changes.
[2024-10-08 12:49] LABS: Glucose - Point of Care 183 mg/dl (70-99)
[2024-10-08] MEDS: MAGNESIUM SULFATE 100 IV (13:22)
[2024-10-08] MEDS: D5/0.45%NSS with KCL 40 MEQ 1000 IV ×2 (13:22→19:35)
[2024-10-08] MEDS: KCL 270 MEQ IV (13:22)
[2024-10-08 13:37] LABS: Glucose - Point of Care 184 mg/dl (70-99)
--- NOTE | 2024-10-08 13:45 | PTCARENOTE ---
Pt having bedside us as ordered. IVF changed and riders infusing as noted.
[2024-10-08] MEDS: SODIUM PHOSPHATE 255 MEQ IV (13:54)
[2024-10-08 14:41] LABS: Glucose - Point of Care 182 mg/dl (70-99)
[2024-10-08 15:53] LABS: Glucose - Point of Care 172 mg/dl (70-99)
--- NOTE | 2024-10-08 16:02 | CM ---
Discharge POC: Anticipate home with no needs.
[2024-10-08 16:29] LABS: Blood Urea Nitrogen 5 mg/dl (7-17); Calcium 8.8 mg/dl (8.4-10.2); Carbon Dioxide 23 mmol/L (22-30); Chloride 107 mmol/L (98-107); Estimated Creatinine Clearance 120 ml/min; Glucose 186 mg/dl (70-99); Potassium 4.5 mmol/L (3.5-5.1); Sodium 135 mmol/L (135-145); eGFR > 60.00
--- NOTE | 2024-10-08 16:38 | PTCARENOTE ---
Pt blood sugars have been stable, 2 units/hr with IVF as ordered. No further dry heaving since insulin restarted. Reports feeling 'muscle strain' in abdomen. Medicated as charted. Otherwise no changes.
[2024-10-08 16:51] LABS: Glucose - Point of Care 153 mg/dl (70-99)
[2024-10-08 17:41] LABS: Glucose - Point of Care 187 mg/dl (70-99)
[2024-10-08] MEDS: LOVENOX 40 MG SC (18:08)
[2024-10-08 18:31] LABS: Glucose - Point of Care 157 mg/dl (70-99)
[2024-10-08 19:41] LABS: Glucose - Point of Care 149 mg/dl (70-99)
--- NOTE | 2024-10-08 20:00 | PTCARENOTE ---
Rec'd pt resting in bed, amb to bathroom w/o difficulty, pain improved in abd after dilaudid, SR, bp stable, + pulses, no edema, skin warm/dry, RA, lungs clear, sat 98, hypo bowel sounds, no bm, abd soft, no vomiting at this time, romain sips of h20,
voids in bathroom, insulin gtt on per protocal - see flow sheet for titrations, labs pending
[2024-10-08 20:04] LABS: Blood Urea Nitrogen 4 mg/dl (7-17); Calcium 8.4 mg/dl (8.4-10.2); Carbon Dioxide 24 mmol/L (22-30); Chloride 107 mmol/L (98-107); Estimated Creatinine Clearance 120 ml/min; Glucose 162 mg/dl (70-99); Potassium 4.3 mmol/L (3.5-5.1); Sodium 135 mmol/L (135-145); eGFR > 60.00
[2024-10-08 20:42] LABS: Glucose - Point of Care 153 mg/dl (70-99)
[2024-10-08] MEDS: LANTUS 0.3 UNITS SC (20:47)
--- NOTE | 2024-10-08 20:48 | PTCARENOTE ---
lantus 30 units sc given as ordered
[2024-10-08 21:42] LABS: Glucose - Point of Care 156 mg/dl (70-99)
[2024-10-08] MEDS: ZOLOFT 100 MG PO (21:58)
[2024-10-08] MEDS: DESYREL 150 MG PO (21:58)
[2024-10-08 22:44] LABS: Glucose - Point of Care 125 mg/dl (70-99)
--- NOTE | 2024-10-08 23:01 | PTCARENOTE ---
Insulin gtt & IVF dc'd per order
[2024-10-09] VITALS (15 sets, daily range): BP systolic 92–176; BP diastolic 53–107; BMI 20.5
[2024-10-09 00:31] LABS: Glucose - Point of Care 125 mg/dl (70-99)
[2024-10-09] MEDS: NOVOLOG FLEXPEN-MODERATE RESISTANCE SC ×2 (00:33→05:07)
--- NOTE | 2024-10-09 00:34 | PTCARENOTE ---
sys reviewed, resting comf
--- NOTE | 2024-10-09 02:46 | DOWNTIME ---
There was a [employer] Client Radiographer Technologist Downtime on 10/09/2024 from 0100 to 10/09/2024 at 0220. Downtime documentation of patient's care, including medication administrations, has been reconciled in the electronic record per guidelines. Refer to the
patient's paper chart under the miscellaneous tab to see printed paper medication records and downtime forms.
[2024-10-09] MEDS: REGLAN 10 MG IV (03:05)
[2024-10-09] MEDS: DILAUDID 0.5 MG IV ×3 (03:23→20:08)
--- NOTE | 2024-10-09 03:27 | PTCARENOTE ---
sys reviewed, reglan 10 mg iv given at 0305 as requested, dilaudid 0.5 mg iv given for abd/ back pain
[2024-10-09 03:40] LABS: Glucose - Point of Care 165 mg/dl (70-99)
[2024-10-09 03:47] LABS: Hematocrit 38.2 % (37.0-47.0); Hemoglobin 12.7 g/dL (12.0-16.0); Mean Corp Hgb Conc. 33.2 g/dL (33.0-37.0); Mean Corpuscular Volume 92.5 fL (81.0-99.0); Nucleated Red Blood Cells % 0 %; Platelet Count 145 10^3/uL (130-400); Red Cell Dist. Width 15.8 % (11.5-14.5)
[2024-10-09 04:13] LABS: ALT (SGPT) 29 U/L (0-35); AST (SGOT) 73 U/L (14-36); Albumin 3.7 g/dl (3.5-5.0); Alkaline Phosphatase 137 U/L (38-126); Blood Urea Nitrogen 3 mg/dl (7-17); Calcium 8.5 mg/dl (8.4-10.2); Carbon Dioxide 22 mmol/L (22-30); Chloride 108 mmol/L (98-107); Estimated Creatinine Clearance 120 ml/min; Glucose 180 mg/dl (70-99); Magnesium 1.7 mg/dl (1.6-2.3); Potassium 4.1 mmol/L (3.5-5.1); Sodium 136 mmol/L (135-145); Total Protein 6.3 g/dl (6.3-8.2); eGFR > 60.00
[2024-10-09] MEDS: APRESOLINE 10 MG IV ×2 (05:00→18:15)
--- NOTE | 2024-10-09 05:07 | PTCARENOTE ---
apresoline 10 mg iv given for elevated bp
[2024-10-09 05:14] LABS: Glucose - Point of Care 122 mg/dl (70-99)
[2024-10-09] MEDS: SODIUM PHOSPHATE 255 MEQ IV (06:13)
--- NOTE | 2024-10-09 06:17 | PTCARENOTE ---
20 sod phosphate iv hung over 4hr per order
[2024-10-09] MEDS: NSS (PRESERVATIVE FREE) IV (07:50)
[2024-10-09] MEDS: PROTONIX IV IV (07:50)
--- NOTE | 2024-10-09 07:53 | PTCARENOTE ---
Received pt this am in bed c/o nausea. Refusing all meds/prn meds. Does not want to eat breakfast. Vitals as charted.
--- NOTE | 2024-10-09 08:15 | W.PN.INTV ---
Today's Communication / Plan
Recommendations
Goal BG 140-180
Diabetic MARKETING PROGRAM MANAGER on board
Awaiting patient's equipment for her insulin pump to be resumed, hopefully by tomorrow
Anti-emetics as needed
Patient is appropriate for downgrade out of ICU to MedSur. No additional recommendations at this time. Kitchen Chef/Pulmonary service will now sign off. Please reconsult if there are any additional questions/concerns, or if patient's respiratory
status deteriorates.
Assessment
-
#1. Diabetic ketoacidosis with known history of type 1 diabetes
- Venous blood gas on admission 7.18, 20, consistent with metabolic acidosis with respiratory compensation
- DKA suspected to be the etiology.
- Hemoconcentration on admission has significantly improved hemoglobin down to 14.2 from 17 on admission. Normal WBC count.
- S/p IV fluid resuscitation and insulin infusion, serum bicarb level has now normalized and anion gap has closed since yesterday afternoon
- Serial labs as ordered, replacing both low potassium, magnesium and phosphorus
- Insulin gtt and dextrose-containing IVF stopped
- Continue basal-bolus SQ insulin until pt has received her equipment for her insulin pump
- Diabetic MARKETING PROGRAM MANAGER on board
- Continue with antiemetics as needed, monitoring QTc with goal <480ms
Other medical diagnoses:
- Hypertension, hyperlipidemia
- Heart failure with preserved ejection fraction - Prior echo on 12/31/2021 showed LVEF 50-55% with mild concentric LV, mild-mod MR
- History of abnormal LFTs, suspected nonalcoholic steatohepatitis
- Hypothyroidism
- Peripheral neuropathy
- History of ADHD
Patient is appropriate for downgrade out of ICU to MedSurg. No additional recommendations at this time. Kitchen Chef/Pulmonary service will now sign off. Thank you for allowing us to be involved in the care of this patient. Please reconsult if
there are any additional questions/concerns, or if patient's respiratory status deteriorates.
Data:
CXR 09/2024: No acute cardiopulmonary process
Stress test 12/2021: Below average exercise tolerance without clear evidence of ischemia.
ECHO 12/2021: LV ejection fraction is 50-55% by Bobo's method of discs.
Possible mid inferolateral wall hypokinesis.
Mild concentric left ventricular hypertrophy.
Mild to moderate mitral regurgitation.
Estimated PASP 45-50 mmHg and RA of 8 mmHg.
No prior study available for comparison.
Total time spent today was 56 minutes for this encounter. Time includes reviewing laboratory test/imaging results, reviewing pertinent medical records, obtaining and reviewing medical history, performing an appropriate exam, ordering medications,
tests and procedures. Time also includes documentation of this encounter, coordinating patient care and communicating with other healthcare professionals. Total time does not include separately billed tests performed on this date of service.
Subjective Dataa
Subjective Data
Date of Service:
Date of Service: October 09, 2024
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
Subjective:
Patient was seen and evaluated this morning. Remains nauseous. Heart rate 78, BP 112/82, and on room air breathing comfortably. No acute events reported overnight. Weaned off insulin drip yesterday.
Review of Systems
General: Other (Negative unless mentioned above)
Objective Data
Data Reviewed
Vital Signs / I&O / Oxygen:
Vital Signs
Temp Pulse Resp BP Pulse Ox
98.3 F 66 15 98/58 96
10/09/24 08:08 10/09/24 08:00 10/09/24 08:00 10/09/24 08:00 10/09/24 07:55
Intake and Output
10/08/24 10/09/24 10/10/24
06:59 06:59 06:59
Intake Total 1267 / 1267 2855.0 / 2855.0
Output Total 1425 / 1425 1150 / 1150
Balance -158 / -158 1705.0 / 1705.0
SaO2 96
Physical Exam
General: Respiratory Distress (negative), Comfortable, Chills (negative) and Sweats (negative)
HEENT: Normocephalic and Anicteric
Cardiovascular: S1-S2 and Peripheral Edema (negative)
Respiratory: Clear, Wheeze (negative), Crackles (negative), Rhonchi (negative) and Non-Labored Respirations
GI: Soft, Non Distended, Non Tender and Normal Bowel Sounds
Neurology: Tremors (negative) and Other (Sleepy today, easily arousable and answers questions appropriately)
Skin: Warm, Dry, Cyanosis (negative) and Jaundice (negative)
Labs/Micro/Reports
Lab Data
10/09/24 03:33
10/09/24 03:33
--- NOTE | 2024-10-09 08:31 | PN.DE.MGMTRT ---
Insulin Management
- -
10/09/2024 Diabetes Management Consult Follow up
Patient admitted 10/06 with intractable vomiting, nausea and abdominal pain, found to be in DKA. Glucose 314, GAP 32. PMH type 1 diabetes, gastroparesis, HTN, MONTANO, anxiety, ADHD, HCL. Prior to admission was using OmniPod with Humalog insulin and
DexCom G6. A1C on admission 6.3%.
Patient is awake alert and oriented. States she is too sick to discuss diabetes care. Did state she is followed by [facility] and that she used her last POD but they are due to arrive 10/10.
10/08 Transitioned from insulin infusion 10/07. This AM GAP 17. Insulin infusion restarted. GAP closed 30 units lantus given @ HS.
10/09 Fasting glucose 122. Will add AC novolog 5 units.
Discussed with nurse
Will check on availability of PODS.
Diabetes History
- -
Type of Diabetes: 1
Pre-Admission Diabetes Regimen
10/08/24 10/08/24 10/08/24
03:37 11:41 16:01
Creatinine 0.4 L 0.4 L 0.3 L
10/08/24 10/09/24
19:31 03:33
Creatinine 0.4 L 0.4 L
Lab Results
Hemoglobin A1c Cancelled 10/06/24 20:34
Insulin Pump Settings
IP Diabetes Regimen
10/08/24 10/08/24 10/08/24
03:37 09:23 10:32
Glucose 317 H
POC Glucose 263 H 238 H
10/08/24 10/08/24 10/08/24
11:30 11:41 12:37
Glucose 238 H
POC Glucose 200 H 183 H
10/08/24 10/08/24 10/08/24
13:26 14:30 15:42
Glucose
POC Glucose 184 H 182 H 172 H
10/08/24 10/08/24 10/08/24
16:01 16:40 17:30
Glucose 186 H
POC Glucose 153 H 187 H
10/08/24 10/08/24 10/08/24
18:19 19:30 19:31
Glucose 162 H
POC Glucose 157 H 149 H
10/08/24 10/08/24 10/08/24
20:31 21:31 22:33
Glucose
POC Glucose 153 H 156 H 125 H
10/09/24 10/09/24 10/09/24
00:20 03:30 03:33
Glucose 180 H
POC Glucose 125 H 165 H
10/09/24
05:02
Glucose
POC Glucose 122 H
Meal type: Breakfast
Amount consumed: Patient refused
Patient Education
--- NOTE | 2024-10-09 08:43 | PTCARENOTE ---
Pt also reports that she most likely won't have diabetes supplies until tomorrow.
--- NOTE | 2024-10-09 10:30 | PTCARENOTE ---
Pt vomited about 100ml green biliary. Still refusing medication. Reports nausea improved after vomiting.
[2024-10-09] MEDS: MAGNESIUM SULFATE 50 IV (10:54)
[2024-10-09 12:27] LABS: Glucose - Point of Care 226 mg/dl (70-99)
[2024-10-09] MEDS: NOVOLOG FLEXPEN-MODERATE RESISTANCE 3 UNITS SC (13:12)
--- NOTE | 2024-10-09 13:14 | W.PN.HOSP.TC ---
Today's Communication/Plan
-
monitor inpatient for resolution until symptoms resolve
Assessment / Plan
Assessment / Plan
39yo F with DM type 1, ADHD, GERD, gastroparesis, MONTANO came with nausea, vomiting and was found in DKA. She was concerned that during her most recent pump installation she accidentally did not follow protocol and hit some buttons on device that she
was not supposed to. Also she is out of her supplements for pump until October 10. Dehydrated on admission, but initially rapidly improving, bridged to SQ insulin on 10/07/24, re-developed symptomatic ketosis on 10/08/24
A/P:
#DM type 1 with DKA with re-ocurrence of ketosis
DMP q4h, IVF with potassium as per protocol while on insulin drip
Start bridging to SQ insulin when DKA resolves - patient used it prior and will be comfortable to be discharged home on it until she will get more pump supplies. Initially bridged with 18units Lantus, but developed symptoms thereafter
Started on Lantus 30units daily and Aspart 5units AC
Advised for frequent (up to 5 times a day) BG checks when replaced pump to ensure BG numbers do not remain high
#Nausea
2/2 DKA
improving
US RUQ with mild hepatomegaly with fatty liver disease and mild splenomegaly
#Dehydration with leukocytosis on admission
no respiratory/urinary symptoms
GI symptoms resolved on DKA treatment
Leukocytosis resolving off Abx
#ADHD
#GERD
#Anxiety
#Insomnia
#MONTANO with chronic transaminitis and elevated alk.phos
cont home meds
DVT ppx lovenox
Full code
I have spent at least 36min of critical care time reviewing chart, test results, communication with consultnat RN and providing direct patient care
Anticipated Discharge: 24 - 48 hours
Subjective/Interval History
-
Date of Service: October 09, 2024
Objective Data
-
Labs:
Laboratory Results
10/09/24
03:33
WBC 6.1
Hgb 12.7
Hct 38.2
Plt Count 145 D
Sodium 136
Potassium 4.1
Chloride 108 H
Carbon Dioxide 22
BUN 3 L
Creatinine 0.4 L
Glucose 180 H
Calcium 8.5
Total Bilirubin 0.9
AST 73 H
ALT 29
Alkaline Phosphatase 137 H
Vital Signs:
Vital Signs
Temp Pulse Resp BP Pulse Ox
98.6 F 82 16 135/87 96
10/09/24 12:22 10/09/24 12:17 10/09/24 12:17 10/09/24 12:17 10/09/24 07:55
I&O
10/08/24 10/09/24 10/10/24
06:59 06:59 06:59
Intake Total 1267 / 1267 2855.0 / 2855.0 255 / 255
Output Total 1425 / 1425 1150 / 1150 100 / 100
Balance -158 / -158 1705.0 / 1705.0 155 / 155
Review of Systems
-
History Source: Patient
All other systems: Reviewed and negative
Abdomen/GI: Reports Nausea; Denies Abdominal Pain
Physical Exam
-
General: Appears in Distress; Negative Pain
Respiratory: Clear to Auscultation
GI: Soft, Nontender and Nondistended
Musculoskeletal: No Clubbing, No Cyanosis and No Edema
Neuro: Awake, Alert, Oriented and AO x 3
Psych: Calm
[2024-10-09 13:23] LABS: Glucose - Point of Care 230 mg/dl (70-99)
--- NOTE | 2024-10-09 14:00 | PTCARENOTE ---
Pt had less then 1/2 piece of toast. Shortly after, pt vomited small amount. Pt not covered for meal time standing. Pain medicine given for mid back and abdominal pain.
[2024-10-09 16:59] LABS: Glucose - Point of Care 170 mg/dl (70-99)
[2024-10-09] MEDS: LOVENOX 40 MG SC (17:17)
[2024-10-09] MEDS: NOVOLOG FLEXPEN-MODERATE RESISTANCE 1 UNITS SC (18:10)
--- NOTE | 2024-10-09 18:35 | PTCARENOTE ---
Assumed care of patient approx 16:45 from previous RN, resting when undisturbed with room darkened and door closed. Pt has been downgraded to med surg level. She continues with ongoing mild nausea but had ordered a jello to eat for dinner. BG 170.
Per Dr. Brown, only given sliding scale coverage of 1 unit, no standing coverage given. Ok to give full dose of lantus tonight. Will pass info to oncoming RN. RAC peripheral IV site dc'd per pt request as it was causing her pain. PRN Apresoline
administered per orders for SBP 170. Pt with call wallace in hand, safe environment maintained.
--- NOTE | 2024-10-09 21:18 | PTCARENOTE ---
Pts brought in pts pump, for pt to restart insulin pump. INSURANCE SALES MANAGER notified, will continue to cover overnight and will pass along to re-evaluate with provider in the morning.
[2024-10-09] MEDS: LANTUS 0.3 UNITS SC (21:29)
[2024-10-09] MEDS: ZOLOFT PO (21:32)
[2024-10-09 21:37] LABS: Glucose - Point of Care 187 mg/dl (70-99)
--- NOTE | 2024-10-09 22:22 | PTCARENOTE ---
Pt transported to with all her belongings.
[2024-10-10] MEDS: DILAUDID 0.5 MG IV ×4 (00:50→14:15)
[2024-10-10] MEDS: NOVOLOG FLEXPEN-MODERATE RESISTANCE SC ×3 (01:09→16:43)
[2024-10-10] MEDS: TUMS EX (EXTRA STRENGTH) CHEWABLE TABLET 600 MG PO (03:14)
[2024-10-10] MEDS: REGLAN 10 MG IV ×3 (03:14→21:27)
[2024-10-10 05:45] LABS: Hematocrit 40.2 % (37.0-47.0); Hemoglobin 13.5 g/dL (12.0-16.0); Mean Corp Hgb Conc. 33.6 g/dL (33.0-37.0); Mean Corpuscular Volume 92.4 fL (81.0-99.0); Nucleated Red Blood Cells % 0 %; Platelet Count 158 10^3/uL (130-400); Red Cell Dist. Width 15.4 % (11.5-14.5)
[2024-10-10 06:16] LABS: ALT (SGPT) 30 U/L (0-35); AST (SGOT) 64 U/L (14-36); Albumin 4.2 g/dl (3.5-5.0); Alkaline Phosphatase 127 U/L (38-126); Blood Urea Nitrogen 5 mg/dl (7-17); Calcium 8.4 mg/dl (8.4-10.2); Carbon Dioxide 30 mmol/L (22-30); Chloride 100 mmol/L (98-107); Estimated Creatinine Clearance 120 ml/min; Glucose 167 mg/dl (70-99); Magnesium 1.9 mg/dl (1.6-2.3); Potassium 3.8 mmol/L (3.5-5.1); Sodium 138 mmol/L (135-145); Total Protein 7.1 g/dl (6.3-8.2); eGFR > 60.00
--- NOTE | 2024-10-10 07:19 | PN.DE.MGMTRT ---
Insulin Management
- -
10/10/2024 Diabetes Management Consult Follow up
Patient admitted 10/06 with intractable vomiting, nausea and abdominal pain, found to be in DKA. Glucose 314, GAP 32. PMH type 1 diabetes, gastroparesis, HTN, MONTANO, anxiety, ADHD, HCL. Prior to admission was using OmniPod with Humalog insulin and
DexCom G6. A1C on admission 6.3%.
Patient is awake alert and oriented. Has had type 1 diabetes since age 12. Did state she is followed by [facility] and that she used her last POD but they are due to arrive 10/10.
10/09 Fasting glucose 122. Will add AC novolog 5 units. Patient not eating, AC insulin held. Received 30 units Lantus @ HS.
10/10 Fasting glucose 167, PODS available will restart POD, with Humalog. Due to 30 units lantus on board from last HS TEMP basal rate set to .4 units per hour until 6pm. then will resume normal basal rate. Pump settings:
Basal 1.15 for 24 hours
Carb ratio 1:7.5 for 24 hours
Correction 1:30 for 24 hours
Active insulin 3 hours.
Patient to order yogurt.00
Discussed with nurse
Will follow
Diabetes History
- -
Type of Diabetes: 1
Pre-Admission Diabetes Regimen
10/10/24
05:16
Creatinine 0.4 L
Lab Results
Hemoglobin A1c Cancelled 10/06/24 20:34
Insulin Pump Settings
IP Diabetes Regimen
10/09/24 10/09/24 10/09/24
12:16 13:12 16:48
Glucose
POC Glucose 226 H 230 H 170 H
10/09/24 10/10/24
21:26 05:16
Glucose 167 H
POC Glucose 187 H
Meal type: Lunch
Meal type: Breakfast
Amount consumed: Patient refused
Patient Education
--- NOTE | 2024-10-10 07:43 | PTCARENOTE ---
Patient arrived on unit @2213, transferred from ICU via stretcher. Patient AAOx3, oriented to unit, call wallace within reach.
[2024-10-10 07:50] VITALS: BP 111/75
[2024-10-10] MEDS: PROTONIX IV 20 MG IV (08:04)
[2024-10-10] MEDS: NSS (PRESERVATIVE FREE) 10 ML IV (08:04)
[2024-10-10 08:11] LABS: Glucose - Point of Care 152 mg/dl (70-99)
[2024-10-10] MEDS: NOVOLOG FLEXPEN-MODERATE RESISTANCE 1 UNITS SC (10:15)
[2024-10-10 11:33] LABS: Glucose - Point of Care 142 mg/dl (70-99)
--- NOTE | 2024-10-10 12:35 | W.PN.HOSP.TC ---
Today's Communication/Plan
-
still abd pain - see PN
Assessment / Plan
Assessment / Plan
39yo F with DM type 1, ADHD, GERD, gastroparesis, MONTANO came with nausea, vomiting and was found in DKA. She was concerned that during her most recent pump installation she accidentally did not follow protocol and hit some buttons on device that she
was not supposed to. Also she is out of her supplements for pump until October 10. Dehydrated on admission, but initially rapidly improving, bridged to SQ insulin on 10/07/24, re-developed symptomatic ketosis on 10/08/24. Patient had pronounced nausea
similar to the previous episodes of DKA. Also found mild hepatomegaly with fatty liver disease and mild splenomegaly that advised to follow with repeated US and potential hematology referral by PCP. Pump restarted with the help of DM SCHOOL PATROL. Tolerated
diet appropriately as at home, however patient is usually not consuming a lot due to gastroparesis.
A/P:
#DM type 1 with DKA with re-occurrence of ketosis
DMP q4h, IVF with potassium as per protocol while on insulin drip
Started on Lantus 30units daily and Aspart 5units AC, then switche dto pump with DM SCHOOL PATROL on 10/10/24
Advised for frequent (up to 5 times a day) BG checks when replaced pump to ensure BG numbers do not remain high
#Nausea
Patient declining abd pain on physical eval, however asking for pain meds to RN q3h. Stop pain meds
Check bHCG (not checked on admission) and if discomfort persists - reasonable additional abdominal imaging with CT
2/2 DKA
improving
US RUQ with mild hepatomegaly with fatty liver disease and mild splenomegaly
#Dehydration with leukocytosis on admission
no respiratory/urinary symptoms
GI symptoms resolved on DKA treatment
Leukocytosis resolving off Abx
#ADHD
#GERD
#Anxiety
#Insomnia
#MONTANO with chronic transaminitis and elevated alk.phos
cont home meds
DVT ppx lovenox
Full code
I have spent at least 51min of critical care time reviewing chart, test results, communication with consultnat RN and providing direct patient care
Anticipated Discharge: Today
Subjective/Interval History
-
Date of Service: October 10, 2024
Objective Data
-
Labs:
Laboratory Results
10/10/24
05:16
WBC 7.1
Hgb 13.5
Hct 40.2
Plt Count 158
Sodium 138
Potassium 3.8
Chloride 100
Carbon Dioxide 30
BUN 5 L
Creatinine 0.4 L
Glucose 167 H
Calcium 8.4
Total Bilirubin 0.6
AST 64 H
ALT 30
Alkaline Phosphatase 127 H
Vital Signs:
Vital Signs
Temp Pulse Resp BP Pulse Ox
97.8 F 98 16 111/75 98
10/10/24 07:50 10/10/24 07:50 10/10/24 07:50 10/10/24 07:50 10/10/24 08:15
I&O
10/09/24 10/10/24 10/11/24
06:59 06:59 06:59
Intake Total 2855.0 / 2855.0 935 / 935
Output Total 1150 / 1150 500 / 500
Balance 1705.0 / 1705.0 435 / 435
Review of Systems
-
History Source: Patient
All other systems: Reviewed and negative
Abdomen/GI: Reports Nausea
Physical Exam
-
General: No Apparent Distress
HEENT: Normocephalic
Respiratory: Clear to Auscultation
Cardiac: Regular Rhythm
GI: Soft, Nontender and Nondistended
Musculoskeletal: No Clubbing, No Cyanosis and No Edema
Neuro: Awake, Alert, Oriented and AO x 3
Psych: Calm
--- NOTE | 2024-10-10 13:29 | W.DCSUMMARY ---
Discharge Summary
Discharge Data
Date of Admission: 10/06/24
Date of Discharge: 10/11/24
-
Pending Results: No
Hospital Course
39yo F with DM type 1, ADHD, GERD, gastroparesis, MONTANO came with nausea, vomiting and was found in DKA. She was concerned that during her most recent pump installation she accidentally did not follow protocol and hit some buttons on device that she
was not supposed to. Also she is out of her supplements for pump until October 10. Dehydrated on admission, but initially rapidly improving, bridged to SQ insulin on 10/07/24, re-developed symptomatic ketosis on 10/08/24. Patient had pronounced nausea
similar to the previous episodes of DKA. Also found mild hepatomegaly with fatty liver disease and mild splenomegaly that advised to follow with repeated US and potential hematology referral by PCP. Pump restarted with the help of DM OENOLOGIST. Tolerated
diet approprietly as at home, however patient is usually not consuming a lot due to gastroparesis. Due to persistent symptoms CT abd done that showed no concerning findings. GI evaluated but patient started to consume food and stayed off IV meds.
Felling much improved, so requested d/c home
I have spent at least 36min of critical care time reviewing chart, test results, communication with [employer] manufacturing consultant and providing direct patient care
Patient was managed for:
#DM type 1 with DKA with re-occurrence of ketosis
#Nausea
#Dehydration with leukocytosis on admission
#ADHD
#GERD
#Anxiety
#Insomnia
#MONTANO with chronic transaminitis and elevated alk.phos
Discharge Plan
-
Patient Disposition: Home (Routine Discharge)
Discharge Diagnosis/Procedures: DKA
Diet: Diabetic, Carb Controlled
Referrals:
Anuj Patiño MD [Active, Gastroenterology]
Referral Note: call office to arrange GI follow up in 2-3 months to discuss MONTANO with fatty liver changes noted on CT
Lisa Jose CRNP [Family Provider, Internal Medicine] - in two to four weeks
Referral Note: mild hepatomegaly with fatty liver disease and mild splenomegaly that advised to follow with repeated US and potential hematology referral by PCP
Prescriptions:
Continued
sertraline 100 mg tablet
100 mg PO HS
dextroamphetamine-amphetamine [Adderall] 15 mg Tablet
30 mg PO DAILY
dextroamphetamine-amphetamine 15 mg Tablet
15 mg PO NOON
ondansetron HCl 4 mg Tablet
4 mg PO Q6HPRN PRN (Reason: NAUSEA)
pantoprazole [Protonix] 20 mg Tablet,Delayed Release (Dr/Ec)
20 mg PO DAILY
trazodone 150 mg Tablet
150 mg PO HSPRN PRN (Reason: SLEEP)
Patient Own Insulin Pump
1 sliding scale dose SC .VIA HUMALOG
Discharge Orders:
Discharge Patient (As Directed); Ordered 10/11/24
Ordered By: Kip Gutierrez
Discharge Date and Time
Print Language: SLOVENIAN
--- NOTE | 2024-10-10 13:32 | PN.CDI ---
Addendum entered and electronically signed by Kip Gutierrez MD 10/10/24 17:18:
no update to be done on my note.
Original Note:
CDI
- -
CDI:
Physician Documentation Request
Admit Date: 10/06/24 18:17
Dear Doctor Matt,
Patient admitted for DKA.
H&P: 'History of heart failure'
10/09 Healthcare Customer Service PN: 'Heart failure with preserved ejection fraction - Prior echo on 12/31/2021 showed LVEF 50-55% with mild concentric LV, mild-mod MR'
Please indicate in your progress notes if you are in agreement that the above diagnosis is valid for this patient:
____ - HFpEF is a valid diagnosis (Please include it in your progress notes)
____ - HFpEF is not a valid diagnosis for this patient
____ - Other
Use of terms such as suspected, likely, concern for, or probable are acceptable for a diagnosis that is being evaluated, monitored or treated as if it exists and can be coded in the inpatient setting, when documented at the time of discharge.
Thank you,
Anabelle Garcia RN, BSN
CDI Specialist
Available via [employer] text
Please use your independent medical judgment in providing your response.
[2024-10-10 14:51] LABS: HCG, Serum Qualitative Screen Negative
[2024-10-10 15:52] VITALS: BP 149/105
--- NOTE | 2024-10-10 15:53 | CM ---
Spoke with pt at bedside.
She said that she is trying a diet , She said if she tolerates diet she will be able to be dc.
She said that her Anuj will be able to drive her home,
Offered VN she declined need.
PLAN Home no needs
[2024-10-10] MEDS: APRESOLINE 10 MG IV ×2 (16:01→23:03)
[2024-10-10 16:38] LABS: Glucose - Point of Care 134 mg/dl (70-99)
[2024-10-10] MEDS: LOVENOX 40 MG SC (17:11)
[2024-10-10] MEDS: TIGAN 200 MG IM (19:05)
[2024-10-10 21:00] LABS: Glucose - Point of Care 122 mg/dl (70-99)
[2024-10-10] MEDS: ZOLOFT PO (21:35)
[2024-10-10] MEDS: LANTUS SC (21:36)
[2024-10-10] MEDS: MELATONIN 5 MG PO (22:35)
[2024-10-10 23:28] VITALS: BP 141/101
[2024-10-11 00:43] VITALS: BP 139/93
[2024-10-11 01:04] LABS: Glucose - Point of Care 61 mg/dl (70-99)
[2024-10-11 01:23] LABS: Glucose - Point of Care 67 mg/dl (70-99)
[2024-10-11 01:45] LABS: Glucose - Point of Care 79 mg/dl (70-99)
[2024-10-11 03:43] LABS: Glucose - Point of Care 86 mg/dl (70-99)
[2024-10-11] MEDS: REGLAN 10 MG IV (03:53)
[2024-10-11 05:40] LABS: Glucose - Point of Care 114 mg/dl (70-99)
[2024-10-11 07:00] VITALS: BP 168/122
--- NOTE | 2024-10-11 07:41 | PN.DE.MGMTRT ---
Insulin Management
- -
10/11/2024 Diabetes Management Consult Follow up
Patient admitted 10/06 with intractable vomiting, nausea and abdominal pain, found to be in DKA. Glucose 314, GAP 32. PMH type 1 diabetes, gastroparesis, HTN, MONTANO, anxiety, ADHD, HCL. Prior to admission was using OmniPod with Humalog insulin and
DexCom G6. A1C on admission 6.3%.
Patient is awake alert and oriented. Has had type 1 diabetes since age 12. Did state she is followed by [facility] and that she used her last POD but they are due to arrive 10/10.
10/10 Fasting glucose 167, POD restarted, with Humalog. Due to 30 units lantus on board from last HS TEMP basal rate set to .4 units per hour until 6pm. then will resume normal basal rate.
10/11 01:03 glucose 61, up to 86 @ 3:41 and 114 @ 5:39. Downward trend most likely due to overlap of lantus and pump basal rates. Will make no change to pump settings.
Pump settings:
Basal 1.15 for 24 hours
Carb ratio 1:7.5 for 24 hours
Correction 1:30 for 24 hours
Active insulin 3 hours.
Discussed with nurse
Will follow
Diabetes History
- -
Type of Diabetes: 1
Pre-Admission Diabetes Regimen
Lab Results
Hemoglobin A1c Cancelled 10/06/24 20:34
Insulin Pump Settings
IP Diabetes Regimen
10/10/24 10/10/24 10/10/24
08:10 11:33 16:37
POC Glucose 152 H 142 H 134 H
10/10/24 10/11/24 10/11/24
20:58 01:03 01:22
POC Glucose 122 H 61 L 67 L
10/11/24 10/11/24 10/11/24
01:42 03:41 05:39
POC Glucose 79 86 114 H
Patient Education
[2024-10-11 08:03] LABS: Glucose - Point of Care 150 mg/dl (70-99)
[2024-10-11] MEDS: NOVOLOG FLEXPEN-MODERATE RESISTANCE SC (08:08)
[2024-10-11 08:11] VITALS: BMI 20.1
[2024-10-11 08:16] LABS: Hematocrit 40.0 % (37.0-47.0); Hemoglobin 13.6 g/dL (12.0-16.0); Mean Corp Hgb Conc. 34.0 g/dL (33.0-37.0); Mean Corpuscular Volume 92.8 fL (81.0-99.0); Nucleated Red Blood Cells % 0 %; Platelet Count 179 10^3/uL (130-400); Red Cell Dist. Width 15.6 % (11.5-14.5)
[2024-10-11] MEDS: NSS (PRESERVATIVE FREE) 10 ML IV (08:23)
[2024-10-11] MEDS: PROTONIX IV 20 MG IV (08:23)
[2024-10-11] MEDS: APRESOLINE 10 MG IV (08:24)
[2024-10-11 08:37] LABS: ALT (SGPT) 33 U/L (0-35); AST (SGOT) 88 U/L (14-36); Albumin 4.1 g/dl (3.5-5.0); Alkaline Phosphatase 136 U/L (38-126); Blood Urea Nitrogen 9 mg/dl (7-17); Calcium 9.2 mg/dl (8.4-10.2); Carbon Dioxide 30 mmol/L (22-30); Chloride 101 mmol/L (98-107); Estimated Creatinine Clearance 118 ml/min; Glucose 122 mg/dl (70-99); Potassium 3.6 mmol/L (3.5-5.1); Sodium 139 mmol/L (135-145); Total Protein 6.9 g/dl (6.3-8.2); eGFR > 60.00
[2024-10-11] MEDS: DILAUDID 0.25 MG IV ×2 (09:03→13:28)
--- NOTE | 2024-10-11 11:26 | W.PN.HOSP.TC ---
Today's Communication/Plan
-
GI consult
Assessment / Plan
Assessment / Plan
39yo F with DM type 1, ADHD, GERD, gastroparesis, MONTANO came with nausea, vomiting and was found in DKA. She was concerned that during her most recent pump installation she accidentally did not follow protocol and hit some buttons on device that she
was not supposed to. Also she is out of her supplements for pump until October 10. Dehydrated on admission, but initially rapidly improving, bridged to SQ insulin on 10/07/24, re-developed symptomatic ketosis on 10/08/24. Patient had pronounced nausea
similar to the previous episodes of DKA. Also found mild hepatomegaly with fatty liver disease and mild splenomegaly that advised to follow with repeated US and potential hematology referral by PCP. Pump restarted with the help of DM DIRECTOR EDUCATION. Tolerated
diet appropriately as at home, however patient is usually not consuming a lot due to gastroparesis.
A/P:
#Nausea, gastroparesis
could not keep any food over 24h except of fluids. Nausea with vomiting. Mild hypoglycemia. Some non-specific abd pain that patient related to retching. Reglan not helping, therefore CT abd/pelvis dose - no acute findings.
GI consult
US RUQ with mild hepatomegaly with fatty liver disease and mild splenomegaly
#DM type 1 with DKA with re-occurrence of ketosis
DMP q4h, IVF with potassium as per protocol while on insulin drip
Started on Lantus 30units daily and Aspart 5units AC, then switche dto pump with DM DIRECTOR EDUCATION on 10/10/24
Advised for frequent (up to 5 times a day) BG checks when replaced pump to ensure BG numbers do not remain high
#Dehydration with leukocytosis on admission
no respiratory/urinary symptoms
GI symptoms resolved on DKA treatment
Leukocytosis resolving off Abx
#ADHD
#GERD
#Anxiety
#Insomnia
#MONTANO with chronic transaminitis and elevated alk.phos
cont home meds
DVT ppx lovenox
Full code
I have spent at least 31min of critical care time reviewing chart, test results, communication with consultnat RN and providing direct patient care
Anticipated Discharge: 24 - 48 hours
Subjective/Interval History
-
Date of Service: October 11, 2024
Objective Data
-
Labs:
Laboratory Results
10/11/24
07:12
WBC 8.1
Hgb 13.6
Hct 40.0
Plt Count 179
Sodium 139
Potassium 3.6
Chloride 101
Carbon Dioxide 30
BUN 9
Creatinine 0.4 L
Glucose 122 H
Calcium 9.2
Total Bilirubin 0.6
AST 88 H
ALT 33
Alkaline Phosphatase 136 H
Vital Signs:
Vital Signs
Temp Pulse Resp BP Pulse Ox
98.7 F 108 17 168/122 98
10/11/24 07:00 10/11/24 07:00 10/11/24 07:00 10/11/24 07:00 10/11/24 08:15
I&O
10/10/24 10/11/24 10/12/24
06:59 06:59 06:59
Intake Total 935 / 935 480 / 480
Output Total 500 / 500
Balance 435 / 435 480 / 480
Review of Systems
-
History Source: Patient
All other systems: Reviewed and negative
Abdomen/GI: Reports Abdominal Pain, Nausea and Vomiting
Physical Exam
-
General: Appears in Distress
HEENT: Normocephalic
Respiratory: Clear to Auscultation
GI: Soft, Nondistended and Tender
Musculoskeletal: No Clubbing and No Edema
Neuro: Awake, Alert, Oriented and AO x 3
Psych: Calm
[2024-10-11 11:50] LABS: Glucose - Point of Care 144 mg/dl (70-99)
[2024-10-11] MEDS: ZOFRAN 4 MG IV (13:28)
--- NOTE | 2024-10-11 13:29 | CON.GI ---
Addendum entered and electronically signed by Petrona Garcia DO 10/11/24 17:39:
Patient seen and examined independently of CITLALI. I agree with her note with my additions below
Patient states she is being discharged. She knows how to eat her gastroparesis diet at home. We discussed the diet itself.
Follow-up with Dr. Patiño outpatient at some point
Abdomen is soft, nontender
Likely resolving gastroparesis in the setting of DKA
Original Note:
Consultation
-
Date/Time Consultation Requested: 10/11/24 0830
Date/Time Consultation Performed: 10/11/24 1330
Requesting Provider: Kip Gutierrez MD
Performing Provider: CITLALI Kinsey, Petrona Garcia DO
Reason for Consultation: nausea
Medical History
Chief Complaint / HPI
Chief Complaint: vomiting
History of Present Illness:
Pt is a 37yo with hx prior ETOH abuse, hypothyroidism, GERD, HTN, anxiety, depression, prior episode of heart failure, ADHA, Type 1 DM with admission 10/06 with abdominal pain and concern for DKA and admits to malfunctioning of insulin pump. Asked
to see for persistent nausea and unable to eat. She has been given Dilaudid, Reglan, Zofran and Tigan.
In review with patient since this am she is now feeling better and asking to go home. She ate about 1/2 lunch. In review with nursing she is still requiring IV meds.
She denies any further ETOH use as noted with increased use several years ago with depression and daughter illness. She admits to vomiting at home at time sometimes undigested food. She admits to hx GERD on PPI daily. + abdominal pain on admission
with now some improvement. She otherwise denies current dysphagia, hematemesis ,diarrhea, constipation, blood or black in stools. Occasional NSAID use.
02/2022 EGD [facility] normal esophagus, eythema in stomach, normal duodenum
02/2022 colonoscopy-[facility] 5 mm polyp in AC, IH, otherwise normal
Past Medical History
Past Medical History: CHF, GERD, HTN, Hypothyroidism, IDDM and Other (prior ETOH use, folate deficiency, anemia, hepatic steatosis, gastroparesis, ecoli UTI 2023, ADHD, colon polyps )
Past Surgical History: and Orthopedic (femur neck fracture with gamma nail May 2022 )
Social History
Tobacco: Non-Smoker
Alcohol: Former
Drug: Marijuana
Personal:
Living: With Family
Employment: Employed
Family History
Family History: Other (no family hx colon CA , polyp,s no family hx pancreatic problems )
Allergies / Home Medications
Allergy/AdvReac Type Severity Reaction Status Date / Time
No Known Allergies Allergy Verified 10/06/24 16:18
�Medication �Instructions �Recorded
sertraline 100 mg tablet 100 mg PO HS Mental Health/Anxiety 01/17/23
dextroamphetamine-amphetamine 15 15 mg PO NOON Mental Health/Anxiety 07/22/23
mg tablet
dextroamphetamine-amphetamine 15 30 mg PO DAILY Mental 07/22/23
mg tablet (Adderall) Health/Anxiety
Patient Own Insulin Pump 1 sliding scale dose SC .VIA 10/06/24
HUMALOG
ondansetron HCl 4 mg tablet 4 mg PO Q6HPRN PRN NAUSEA 10/06/24
pantoprazole 20 mg tablet,delayed 20 mg PO DAILY 10/06/24
release (Protonix)
trazodone 150 mg tablet 150 mg PO HSPRN PRN SLEEP 10/06/24
Review of Systems
-
History Source: Patient
Constitutional: Reports No Symptoms
EENT: Reports No Symptoms
Respiratory: Reports No Symptoms
Cardiac: Reports No Symptoms
Abdomen/GI: Reports Nausea, Vomiting and Other (abd pain resolved )
: Reports No Symptoms
Musculoskeletal: Reports No Symptoms
Skin: Reports No Symptoms
Neurological: Reports No Symptoms
Endocrine: Reports No Symptoms
Hematologic/Lymphatic: Reports No Symptoms
Vital Signs
Temp Pulse Resp BP Pulse Ox
98.7 F 108 17 168/122 98
10/11/24 07:00 10/11/24 07:00 10/11/24 07:00 10/11/24 07:00 10/11/24 08:15
Physical Exam
Exam
General: Well Developed and Well Nourished
HEENT: Normocephalic and Anicteric
Respiratory: Clear
Cardiac: Other (tachy)
GI: Soft, Non Distended and Tender (minimal with pain meds given 1/2 )
Musculoskeletal: No Clubbing and No Cyanosis
Skin: Warm and Dry
Neuro: Awake, Alert and AO x 3
Psych: Calm
Results
WBC 8.1 10^3/uL (4.8-10.8) 10/11/24 07:12
Hgb 13.6 g/dL (12.0-16.0) 10/11/24 07:12
Hct 40.0 % (37.0-47.0) 10/11/24 07:12
MCV 92.8 fL (81.0-99.0) 10/11/24 07:12
Plt Count 179 10^3/uL (130-400) 10/11/24 07:12
Absolute Neuts (auto) 5.9 10^3/uL (1.4-6.5) 10/11/24 07:12
PT 16.3 Sec (11.4-14.6) H 10/06/24 22:51
INR 1.28 10/06/24 22:51
APTT 30.3 Sec (23.4-35.0) 10/06/24 22:51
Sodium 139 mmol/L (135-145) 10/11/24 07:12
Potassium 3.6 mmol/L (3.5-5.1) 10/11/24 07:12
Chloride 101 mmol/L (98-107) 10/11/24 07:12
Carbon Dioxide 30 mmol/L (22-30) 10/11/24 07:12
BUN 9 mg/dl (7-17) 10/11/24 07:12
Creatinine 0.4 mg/dL (0.6-1.0) L 10/11/24 07:12
Calcium 9.2 mg/dl (8.4-10.2) 10/11/24 07:12
Total Bilirubin 0.6 mg/dl (0.2-1.3) 10/11/24 07:12
AST 88 U/L (14-36) H 10/11/24 07:12
ALT 33 U/L (0-35) 10/11/24 07:12
Alkaline Phosphatase 136 U/L (38-126) H 10/11/24 07:12
Lipase 115 U/L (23-300) 10/08/24 03:37
Diagnostic Image Results:
1. Severe diffuse fatty infiltration of the liver, with geographic areas of fatty sparing. Findings are similar compared to prior CT dated 12/13/2021, and consistent with the provided history of MONTANO.
2. No evidence of intestinal obstruction or bowel inflammatory process.
Prior GI Procedures:
02/2022 EGD [facility] normal esophagus, eythema in stomach, normal duodenum
02/2022 colonoscopy-[facility] 5 mm polyp in AC, IH, otherwise normal
Assessment / Plan
-
Pt is a 37yo with hx prior ETOH abuse, hypothyroidism, GERD, HTN, anxiety, depression, prior episode of heart failure, ADHA, Type 1 DM with admission 10/06 with abdominal pain and concern for DKA and admits to malfunctioning of insulin pump. Asked
to see for persistent nausea and unable to eat. She has been given Dilaudid, Reglan, Zofran and Tigan.
In review with patient since this am she is now feeling better and asking to go home. She ate about 1/2 lunch. In review with nursing she is still requiring IV meds.
Impression
-Intractable nausea and vomiting
-DKA on admission
-tachycardia
-MONTANO per imaging
-hx prior ETOH abuse
-GERD
-hx prior ETOH hepatitis/pancreatitis
-hx B12 and folate deficiency
-cholelithiasis
-colon polyps
-pancreatic atrophy
-ADHD
Recommendation:
etiology of symptoms related to recent DKA -- minimal chronic symptoms and hbg A1C 6.3 less likely chronic gastroparesis
asked to see for nausea and vomiting and now admits to starting to eat and asking for discharge
reviewed with Dr. Gutierrez if able to tolerate dinner without need for IV med possible home later today
can consider transition to standing PO reglan but has interaction with sertraline would hold for now
can increase PPI to 40mg daily
small potions as tolerated
good glucose control
OP follow up OP for liver eval as noted hx MONTANO with NIDDM and prior ETOH use -discussed ETOH abstinence
support given with increase stress with special need child
-
-
Thank you for consultation and allowing me to participate in the patient's care. Please call the neon installer GI physician during the after hours with any questions or concerns.
--- NOTE | 2024-10-11 14:27 | CM ---
Spoke with pt at bedside.
MD indicated if tolerate diet and pain is manageable she will be able to be dc after dinner.
She said that her Anuj will be able to drive her home,
Offered VN she declined need.
PLAN Home no needs
[2024-10-11 15:00] VITALS: BP 126/87
[2024-10-11 16:44] LABS: Glucose - Point of Care 131 mg/dl (70-99)
[2024-10-11] MEDS: LOVENOX SC (17:02)
== END 2024-10-11 18:14 | disposition home or self-care (01) | DRG 638 ==
LOC: 3 WEST ACU 18:17
PROVIDERS: Internal Medicine Critical Care Medicine; Nurse Practitioner Primary Care; Physician Assistant; Registered Nurse; ADMITTING PHYSICIAN Internal Medicine; ATTENDING PHYSICIAN Internal Medicine; CONSULT PHYSICIAN Internal Medicine; EMERGENCY PHYSICIAN Emergency Medicine; FAMILY PHYSICIAN Nurse Practitioner Adult Health
DX: E10.10 Type 1 diabetes mellitus with ketoacidosis without coma (principal); I50.32 Chronic diastolic (congestive) heart failure; E86.0 Dehydration; F90.9 Attention-deficit hyperactivity disorder, unspecified type; K21.9 Gastro-esophageal reflux disease without esophagitis; F41.9 Anxiety disorder, unspecified; G47.00 Insomnia, unspecified; K76.0 Fatty (change of) liver, not elsewhere classified; K31.84 Gastroparesis; Z79.4 Long term (current) use of insulin; Z96.41 Presence of insulin pump (external) (internal); G62.9 Polyneuropathy, unspecified; F32.A Depression, unspecified; E55.9 Vitamin D deficiency, unspecified; D52.9 Folate deficiency anemia, unspecified; E03.9 Hypothyroidism, unspecified; I11.0 Hypertensive heart disease with heart failure; F17.200 Nicotine dependence, unspecified, uncomplicated; Z79.899 Other long term (current) drug therapy; Z79.890 Hormone replacement therapy; D53.9 Nutritional anemia, unspecified; E10.43 Type 1 diabetes mellitus with diabetic autonomic (poly)neuropathy; E78.00 Pure hypercholesterolemia, unspecified; F10.11 Alcohol abuse, in remission; Z86.0100 Personal history of colon polyps, unspecified; Z87.440 Personal history of urinary (tract) infections
CPT/HCPCS: 71045; 74177; 76700; 80048; 80053; 80061; 81003; 81015; 82010; 82248; 82805; 82962; 83036; 83690; 83735; 84100; 84443; 84703; 85025; 85027; 85610; 85730; 96361; 96365; 96366; 96375; 99291; Q9967

== ENCOUNTER 2025-02-20 22:37 | Inpatient (IN) | payer BC, SELFPAY ==
[2025-02-20 19:05] VITALS: BP 158/116
[2025-02-20 19:37] LABS: Hematocrit 48.4 % (37.0-47.0); Hemoglobin 15.9 g/dL (12.0-16.0); Mean Corp Hgb Conc. 32.9 g/dL (33.0-37.0); Mean Corpuscular Volume 83.7 fL (81.0-99.0); Nucleated Red Blood Cells % 0 %; Platelet Count 284 10^3/uL (130-400); Red Cell Dist. Width 17.3 % (11.5-14.5)
[2025-02-20 19:57] LABS: HCG, Serum Qualitative Screen Negative
[2025-02-20 20:07] LABS: ALT (SGPT) 47 U/L (0-35); AST (SGOT) 151 U/L (14-36); Albumin 5.7 g/dl (3.5-5.0); Alkaline Phosphatase 254 U/L (38-126); Blood Urea Nitrogen 24 mg/dl (7-17); Calcium 10.6 mg/dl (8.4-10.2); Carbon Dioxide 25 mmol/L (22-30); Chloride 86 mmol/L (98-107); Glucose 194 mg/dl (70-99); Potassium 3.3 mmol/L (3.5-5.1); Sodium 138 mmol/L (135-145); Total Protein 10.6 g/dl (6.3-8.2); eGFR > 60.00
[2025-02-20 20:09] LABS: Troponin I 0.012 ng/ml
[2025-02-20 20:10] VITALS: BP 165/129
[2025-02-20 20:12] VITALS: BMI 19.2
[2025-02-20] MEDS: NSS 1000 IV ×2 (20:23→23:18)
[2025-02-20] MEDS: BENADRYL 25 MG IV (20:23)
[2025-02-20] MEDS: REGLAN 10 MG IV (20:23)
[2025-02-20 20:28] VITALS: BP 163/136
[2025-02-20 20:35] LABS: Venous Blood Gas B.E. 5.8 mmol/L (-4 to +4); Venous Blood Gas O2 Sat % 99.2 %
[2025-02-20 20:37] LABS: Lipase 245 U/L (23-300); Magnesium 1.6 mg/dl (1.6-2.3)
[2025-02-20 21:00] VITALS: BP 138/112
[2025-02-20] MEDS: KCL 270 MEQ IV (21:17)
[2025-02-20 21:24] LABS: Glucose - Point of Care 222 mg/dl (70-99)
--- NOTE | 2025-02-20 21:31 | ED.GENMED ---
History of Present Illness
General
Chief Complaint: Blood Sugar Problem
Source: patient and spouse
Time Seen by Provider: 02/20/25 19:58
History of Present Illness
History of Present Illness:
Note:
CHIEF COMPLAINT(S)
Hyperglycemia and dehydration.
HISTORY OF PRESENT ILLNESS
The patient is a 39-year-old female with a history of diabetes mellitus who presents to the emergency department with symptoms of hyperglycemia and dehydration. She reports feeling dry, which is confirmed by her mucous membranes appearing dry and
cracked. She notes that in past instances, similar episodes have been triggered by diabetic ketoacidosis. The patient states that she has had diabetes since childhood and utilizes an insulin pump, which is currently functioning properly. She denies
any recent issues with the pumps delivery or functioning.
The patient experiences nausea, which she usually manages with metoclopramide (Reglan), sometimes taken with diphenhydramine (Benadryl), although this combination may cause drowsiness. The patient reports that metoclopramide works as a promotility
agent for her gastroparesis. She mentions experiencing abdominal pain on occasion, which is common for her.
PAST MEDICAL AND SURIGICAL HISTORY
1. Diabetes mellitus since childhood.
2. Hypertension, not currently treated with medication.
ADDITIONAL HISTORY OBTAINED FROM SOURCES OTHER THAN THE PATIENT
Per the patient, there have been no interventions by EMS prior to arrival, and the history provided is consistent with her previous visits.
CHRONIC MEDICAL CONDITIONS SIGNIFICANTLY AFFECTING CARE
1. Diabetes mellitus.
2. Hypertension.
SOCIAL HISTORY
The patient denies tobacco use, alcohol consumption, and illicit drug use.
ALLERGIES
The patient has no reported allergies to medications.
REVIEW OF SYSTEMS
- Cardiovascular: Hypertension.
- Respiratory: No respiratory distress noted.
- Gastrointestinal: Nausea, gastroparesis.
- Neurological: No focal neurological deficits noted.
PHYSICAL EXAM
General: Alert, appears ill, cheeks are clint.
Skin: Dry mucous membranes.
Cardiovascular: Tachycardia, regular rhythm.
Respiratory: No respiratory distress.
Gastrointestinal: Moderate abdominal tenderness, no distention.
Neurological: Alert and oriented to person, place, time, and situation, no focal neurological deficit observed.
PROBLEM LIST
- Acute: Hyperglycemia, dehydration, abdominal tenderness, nausea.
- Chronic: Diabetes mellitus, hypertension.
PLAN
1. Initiate intravenous fluids with normal saline, starting with one liter, followed by additional fluids as necessary.
2. Administer metoclopramide (Reglan) and diphenhydramine (Benadryl) for nausea management.
3. Perform laboratory investigations to assess current metabolic status and guide further management.
4. Admit the patient for further evaluation given the significant dehydration and potential for diabetic ketoacidosis.
DIFFERENTIAL DIAGNOSIS
The Differential Diagnosis includes, in no particular order and is not limited to:
1. Diabetic Ketoacidosis.
2. Hyperosmolar Hyperglycemic State.
3. Gastroenteritis.
4. Urinary Tract Infection.
5. Pancreatitis.
6. Appendicitis.
7. Viral Gastroenteritis.
8. Small Bowel Obstruction.
9. Acute gastritis.
10. Peptic Ulcer Disease.
EKG
My independent EKG interpretation is:
- Time of EKG: Not specified
- Rhythm: Not specified
- Heart Rate: 114 beats per minute
- [place]: Left axis deviation
- Notable intervals: Not specified
- Abnormalities:
- Left anterior fascicular block
- Non-specific findings related to FDHAVHM (assuming this refers to non-specific findings of high amplitude voltage or abnormal myocardial movements if applicable)
CARE-UPDATE
02/20/25 - 20:21
The patient continues to exhibit signs consistent with possible diabetic ketoacidosis (DCA), including fruity breath odor. Awaiting confirmatory results for DQA to inform further management decisions.
Disposition:
SUMMARY OF ENCOUNTER
The patient is a 39-year-old female with a history of insulin-dependent diabetes mellitus and gastroparesis who presented to the emergency department with persistent vomiting and concerns for hyperglycemia. She reported that her symptoms might be
related to her gastroparesis. Upon arrival, she appeared acutely ill and was noted to have hypertension with a blood pressure of 150/116. She also exhibited a fruity breath odor. Laboratory results showed an anion gap metabolic acidosis and
respiratory alkalosis, with beta-hydroxybutyrate elevated at 8.88, suggestive of diabetic ketoacidosis (DKA) as the cause of her metabolic acidosis. The patients blood glucose was 222 mg/dL, and she was found to be slightly hypokalemic with a
potassium level of 3.3 and low chloride at 86. Despite her low blood sugar levels due to insulin treatment, dextrose was administered alongside IV fluids to prevent hypoglycemia. A urinary analysis suggested a urinary tract infection, although it is
not specified. The patients past medical records, including labs and a discharge summary from a previous admission in September 2024, were reviewed.
DISPOSITION
Admit.
ASSESSMENT
The patient is experiencing diabetic ketoacidosis (DKA) as suggested by the metabolic acidosis and elevated beta-hydroxybutyrate, despite a relatively low blood glucose level due to insulin treatment.
EMERGENCY TREATMENTS ADMINISTERED
Intravenous insulin and dextrose were administered, alongside IV fluids.
MANAGEMENT OF THE PATIENTS CARE WAS DISCUSSED WITH
The case was discussed with the hospitalist for admission.
PLAN
The plan includes continuation of IV fluids and insulin therapy, monitoring of electrolytes and blood glucose levels, and admission for further evaluation and treatment of her DKA.
INDEPENDENT REVIEW OF LABS AND INTERPRETATION OF TESTS
My independent review of labs indicates the presence of anion gap metabolic acidosis with respiratory alkalosis, elevated beta-hydroxybutyrate at 8.88, slight hypokalemia at 3.3, and low chloride at 86.
MEDICATION RECONCILIATION
Administered medications include intravenous insulin and dextrose.
MEDICAL DECISION MAKING
-Number and Complexity of Problems Addressed: Chronic conditions affecting care include diabetes mellitus and gastroparesis. The differential diagnosis includes diabetic ketoacidosis, hyperosmolar hyperglycemic state, and urinary tract infection.
-Data:
Category 1: Tests and documents reviewed include the patients laboratory results and past medical records, including discharge summary from September 2024.
Category 2: Clinical information was verified from old records, including labs from previous admission in September 2024.
Category 3: Discussion of management with the hospitalist regarding the admission and ongoing treatment plan.
-Risk: The decision to admit the patient was made due to the risk associated with diabetic ketoacidosis and need for close monitoring and treatment.
DIAGNOSIS
1. Diabetic Ketoacidosis (DKA), E10.10
2. Gastroparesis, K31.84
3. Hypertension, I10
Past History
Past History
ED Past Medical History: HTN, Hypercholesterolemia, IDDM and Other (folate def., macrocytic anemia, hepatic steatosis, gastroparesis, 'Heart failure, it was a one time thing')
ED Past Surgical History: (X 2), Gynecological and Orthopedic (Right hip pinning)
Patient has exhibited threatening behavior?: No
PSI?: No
Social History
Tobacco: Smoker
Alcohol: Occasional (Last drink-yesterday, whiskey)
Drug: None
Personal:
Living: with family
Employment: Employed
Phy Exam
Physical Exam
Physical Exam:
.
Course
Orders/Labs/Results
Orders:
Orders
02/20/25 Breakfast
NPO
Allow oral meds: Yes
Allow clear liquids: Sips of Clears
02/20/25 19:09
Electrocardiogram (*1) Urgent
Reason for Study: Chest Pain
EKG- Treatment ONCE
Test Result ONCE
02/20/25 19:28
B-Hydroxybutyrate Urgent
Complete Blood Count/With Diff Urgent
Comprehensive Metabolic Panel Urgent
HCG, Serum Qualitative Screen Urgent
Lipase Urgent
Comment: ADD ON
Magnesium Urgent
Comment: ADDON
Phosphorus Urgent
Comment: ADD ON
Troponin I Urgent
02/20/25 20:17
0.9% Sodium Chloride 1000 ml [Nss] 1,000 ml IV BOLUS
02/20/25 20:18
Diphenhydramine [Benadryl] 25 mg IV NOW STA
Metoclopramide [Reglan] 10 mg IV NOW STA
02/20/25 20:20
Add On- LAB Urgent
Tests Added?: mg
Urinalysis Reflex To Culture Urgent
02/20/25 20:25
Venous Blood Gas Urgent
%Oxygen/Room Air: ra
02/20/25 20:26
Add On- LAB Urgent
Tests Added?: lipase
02/20/25 21:01
Potassium Chloride [KCl] 40 meq 0.9% Sodium Chloride 250 ml [Nss] 250 ml IV NOW
02/20/25 21:07
Bedside Glucose- Treatment Q1H
IV Insert/Care/Rem.- Treatment PRN
02/20/25 21:08
0.9% Sodium Chloride 1000 ml [Nss] 1,000 ml IV BOLUS
02/20/25 21:11
Reg Insulin 100 Units/100 ml [Novolin R Insulin Infusion] 100 units in 100 ml IV NOW
02/20/25 21:30
Reg Insulin 100 Units/100 ml [Novolin R Insulin Infusion] 100 units in 100 ml IV PER PROTOCOL
Currently infusing. Continue current dose and titrate:: Yes
02/20/25 22:00
Dextrose 5%/0.45%Sodchl 500 ml [D5/0.45%NaCl] 500 ml IV 125 mls/hr
02/20/25 22:16
Admit/Transfer Patient As Directed
Co-Sign Provider:
Level of Care: Inpatient admission
Assign to:: ICU
Physician / Group: Pranav
Diagnosis: DKA, Metabolic Alkalosis
Reason for Hospitalization: DKA, Metabolic Alkalosis
Expected length of stay greater than two midnights?: Yes
ELOS- Estimated Length of Stay in days: 4
I certify the patient meets the requirements for IP care: Yes
PRN Pain Medication Management As Directed
May give lesser potent ordered pain med per pt: Yes
preference::
Protocol:: Medication orders for pain may be administered in a
manner that supports deferring to patient preference
when the pt is:
- Requesting an ordered lesser potent pain medication.
Least to most potent pain medications are defined
as: acetaminophen < NSAID < tramadol < opioids
(morphine, oxycodone, hydromorphone).
- Requesting a lesser dose of the same medication IF
ORDERED.
- Requesting a less intrusive route of administration
if both routes are prescribed by the provider (PO <
IV).
02/20/25 22:18
Code Status As Directed
Resuscitation Status: Full Code
02/20/25 22:30
Add On- LAB Urgent
Tests Added?: Phosphorus
02/20/25 22:31
Magnesium Sulfate 1 grams 0.9% Sodium Chloride 100 ml [Nss] 100 ml IV NOW
02/20/25 23:03
Acetaminophen [Tylenol] 650 mg PO Q4HPRN PRN
KCl 20 Meq/D5.45%Sodchl 1000ML [D5/0.45%NSS with KCL 20 MEQ] 20 meq in 1,000 ml IV 250 mls/hr
Ondansetron Injectable [Zofran] 4 mg IV Q6HPRN PRN
Potassium Chloride [KCl] 40 meq PO NOW STA
Reg Insulin 100 Units/100 ml [Novolin R Insulin Infusion] 100 units in 100 ml IV PER PROTOCOL
Currently infusing. Continue current dose and titrate:: Yes
02/20/25 23:03
Consult Notification Routine
Specialty to Notify: refer to Physician Consult order
PHYSICIAN CONSULT Routine
Consulting Provider: Lisette Ortiz
Was physician already notified: No
Reason for consult: DKA, Metabolic Alkalosis
Activity As Directed
Activity Level: Ambulate
With Assistance
Bedside Glucose Monitoring As Directed
Frequency: Q1H
EKG with chest pain [ECG as needed] As Directed
ECG as needed for:: Chest Pain
I/O [Intake/ Output] As Directed
Frequency: Per unit guidelines
Notify MD As Directed
Notify physician if: Nurse to contact provider when glucose reaches 250 to obtain orders for D5 0.[address] Non Medication Order As Directed
Physician Order: serum potassium 1 hour after administration of Potassium oral supplement or Potassium rider
is completed.
notify provider of result
Pneumatic Compression Sleeves As Directed
Type: Knee high
Vital Signs As Directed
Frequency: Per unit guidelines
Oxygen Therapy [O2 Therapy] [RESP] Routine
Titrate/Wean O2 to maintain O2 sat greater than (%): 94
DX Deep Vein Thrombosis Video Routine
02/20/25 23:10
Trazodone [Desyrel] 150 mg PO HSPRN PRN
02/20/25 23:20
Glycohemoglobin (HgbA1c) Routine
TSH Reflex To Free T4 Routine
02/21/25 06:00
Arterial Blood Gas IN AM
%Oxygen/Room Air: RA
Basic Metabolic Panel Q4H
Complete Blood Count/No Diff IN AM
LFT [[id number]-[id number]] IN AM
CR Chest - 2 Views IN AM
Comment:
Reason For Exam: DKA
02/21/25 08:00
Pantoprazole [Protonix IV] 40 mg IV DAILY
02/21/25 10:00
Basic Metabolic Panel Q4H
02/21/25 14:00
Basic Metabolic Panel Q4H
02/21/25 18:00
Basic Metabolic Panel Q4H
Enoxaparin Sodium [Lovenox] 40 mg SC QPM
02/21/25 22:00
Basic Metabolic Panel Q4H
Sertraline HCl [Zoloft] 100 mg PO HS
02/22/25 02:00
Basic Metabolic Panel Q4H
Abnormal Lab Results
02/20/25 02/20/25 02/20/25
19:28 20:25 21:22
WBC 19.9 H 10^3/uL
(4.8-10.8)
RBC 5.78 H 10^6/uL
(4.20-5.40)
Hct 48.4 H %
(37.0-47.0)
MCHC 32.9 L g/dL
(33.0-37.0)
RDW 17.3 H %
(11.5-14.5)
Abs Immat Gran (auto) 0.1 H 10^3/uL
(0-0.05)
Absolute Neuts (auto) 16.9 H 10^3/uL
(1.4-6.5)
Absolute Monos (auto) 1.0 H 10^3/uL
(0.1-0.6)
Neutrophils % 84.9 H %
(42.2-75.2)
Lymphocytes % 9.0 L %
(20.5-51.1)
VBG pH 7.52 H
(7.32-7.43)
VBG pO2 102 H mmHg
(30-50)
VBG HCO3 28.6 H mmol/L
(22-27)
Potassium 3.3 L mmol/L
(3.5-5.1)
Chloride 86 L mmol/L
(98-107)
BUN 24 H mg/dl
(7-17)
Creatinine 1.1 H mg/dL
(0.6-1.0)
Glucose 194 H mg/dl
(70-99)
Calcium 10.6 H mg/dl
(8.4-10.2)
AST 151 H U/L
(14-36)
ALT 47 H U/L
(0-35)
Alkaline Phosphatase 254 H U/L
(38-126)
Total Protein 10.6 H g/dl
(6.3-8.2)
Albumin 5.7 H g/dl
(3.5-5.0)
B-Hydroxybutyrate 8.88 H mmol/L
(0.02-0.27)
POC Glucose 222 H mg/dl
(70-99)
02/20/25
22:36
WBC
RBC
Hct
MCHC
RDW
Abs Immat Gran (auto)
Absolute Neuts (auto)
Absolute Monos (auto)
Neutrophils %
Lymphocytes %
VBG pH
VBG pO2
VBG HCO3
Potassium
Chloride
BUN
Creatinine
Glucose
Calcium
AST
ALT
Alkaline Phosphatase
Total Protein
Albumin
B-Hydroxybutyrate
POC Glucose 222 H mg/dl
(70-99)
02/20/25 19:28
02/20/25 21:15
Vital Signs
Initial and Last Documented VS:
Initial Vital Signs
Temp Pulse Resp BP Pulse Ox
97.4 F 146 18 158/116 98
02/20/25 19:05 02/20/25 19:05 02/20/25 19:05 02/20/25 19:05 02/20/25 19:05
Last Documented Vital Signs
Temp Pulse Resp BP Pulse Ox
97.4 F 118 21 162/104 99
02/20/25 19:05 02/20/25 22:45 02/20/25 22:45 02/20/25 22:00 02/20/25 22:00
*Pulse Oximetry
SaO2: 99
Oxygen Mode of Delivery: Room air
Patient hypoxic: no
*Critical Care Note
Total Time (30-74mins, 75-104mins- exclusive of procedures): 35 minutes
ED Attending Note
-
Portions of this chart may have been created with voice recognition software.� Occasional wrong word or��sound alike� substitutions may have occurred due to the inherent limitations of voice recognition software.
Discharge Plan
Departure
Patient Disposition: Admit
Date of Disposition: 02/20/25
Time of Disposition: 21:33
Admit to: IMU
Presentation/result/management discussed w/ accepting MD/DO: Hospitalist
Discharge Problem:
Diabetic ketoacidosis, Acute respiratory alkalosis, Vomiting
Interventions
Interventions:
*Risk Screen - Suicide Last Done: 02/20/25 19:05
*General Assessment Last Done: 02/20/25 19:05
*ED COVID-19 Vaccine History Last Done: 02/20/25 20:13
*ED Influenza Vaccine History Last Done: 02/20/25 20:13
[facility] Fall Risk Assessment Tool Last Done: 02/20/25 20:00
ED- Neurological Assessment Last Done: 02/20/25 20:33
[2025-02-20] MEDS: NOVOLIN R INSULIN INFUSION 100 IV (21:34)
[2025-02-20] MEDS: D5/0.45%NACL 500 IV (21:40)
[2025-02-20 22:00] VITALS: BP 162/104
--- NOTE | 2025-02-20 22:23 | HPS.HSE ---
Family Physician
-
Family Physician: CITLALI Gomez
Chief Complaint
-
Abd Pain, N/V, Fatigue
History of Present Illness
Patient is a 39y F with PMH significant for DM-I and gastroparesis who presents to ED complaining of abdominal pain and profuse N/V. Patient states that she started with abdominal discomfort on Tuesday. She developed N/V on Tuesday and has had
innumerable episodes of emesis in the past 1 1/2 days. Patient complains of crampy abdominal discomfort, generalized weakness and fatigue. Patient notes that she ate too much over the holiday / weekend and notes that this has flared her
gastroparesis in the past. No recent changes to insulin dosing or equipment. No recent cough, dyspnea, fevers / chills, etc. No known sick contacts.
Medical History
Past Medical History
Past Medical History: Reports Other
Additional Past Medical History:
Lupus
Hepatic steatosis
DM-I
Peripheral Neuropathy
Gastroparesis
Depression
Vitamin D deficiency
Folate deficiency anemia
Hypothyroidism
Hypertension
History of heart failure
Past Surgical History: Reports Other
Additional Past Surgical History:
Right femoral neck status post screw fixation
Social History
Tobacco: Non-smoker
Alcohol: None
Drug: None
Family History
Family History: Not pertinent
Allergies / Home Medications
Allergies reflects when Allergies were last updated in [employer].
Home Medications with original date entered in [employer]
Allergy/Medication List:
Allergies
Allergy/AdvReac Type Severity Reaction Status Date / Time
No Known Allergies Allergy Verified 02/20/25 19:06
Home Medications
sertraline 100 mg tablet 100 mg PO HS Mental Health/Anxiety 01/17/23
dextroamphetamine-amphetamine 15 mg tablet 15 mg PO TID Mental Health/Anxiety 07/22/23
Patient Own Insulin Pump 1 sliding scale dose SC .VIA HUMALOG 10/06/24
pantoprazole 20 mg tablet,delayed release (Protonix) 20 mg PO DAILY 10/06/24
trazodone 150 mg tablet 150 mg PO HSPRN PRN SLEEP 10/06/24
Review of Systems
-
History Source: Patient
A 12 point ROS was completed and negative except as noted: Yes
Constitutional: Reports Fatigue; Denies Fever or Chills
EENT: Denies Sore Throat
Respiratory: Denies Cough
Cardiac: Denies Chest Pain or Palpitations
Abdomen/GI: Reports Abdominal Pain, Nausea, Vomiting and Anorexia; Denies Diarrhea, Constipated, Bloody Stools or Black Stools
: Denies Dysuria or Frequency
Musculoskeletal: Denies Joint Pain or Edema
Neurological: Denies Dizzy or Headache
Psych: Denies Depression or Anxiety
Physical Exam
Vital Signs
Vital Signs
Temp Pulse Resp BP Pulse Ox
97.4 F 112 16 138/112 99
02/20/25 19:05 02/20/25 21:45 02/20/25 21:45 02/20/25 21:00 02/20/25 21:31
Physical Exam
General: Other (Ill-appearing 39y F. Flushed facies / patchy erythema around head and neck.)
HEENT: Other (Dry MM. Neck is supple.)
Respiratory: Clear; No Wheezes, Rales or Rhonchi
Cardiac: S1/S2, Regular Rhythm and Tachycardia; No Murmur
GI: Other (Abdomen is soft. Diffusely tender with voluntary guarding. Pos BS.)
Musculoskeletal: No Clubbing, No Cyanosis and No Edema
Neuro: AO x 3
Laboratory Results
-
02/20/25 19:28
Laboratory Results
Total Bilirubin 1.3 mg/dl (0.2-1.3) 02/20/25 19:28
AST 151 U/L (14-36) H 02/20/25 19:28
ALT 47 U/L (0-35) H 02/20/25 19:28
Alkaline Phosphatase 254 U/L (38-126) H 02/20/25 19:28
Troponin I 0.012 ng/ml 02/20/25 19:28
Lipase 245 U/L (23-300) 02/20/25 19:28
Impression/Plan
-
A/P: Patient is a 39y F with PMH significant for DM-I, gastroparesis and lupus who presents to ED complaining of abdominal pain with N/V x 2-4 days.
Metabolic Alkalosis - Likely secondary to hypovolemia / GI losses
Anion Gap Metabolic Acidosis - Starvation ketosis +/- DKA
Hypokalemia
Mild Hypomagnesemia
- Admit to ICU for further evaluation and treatment.
- Labs indicate marked volume contraction due to recent GI losses, profuse emesis, poor PO intake.
- Aggressive IVF replacement / resuscitation.
- Replace potassium. Replace Mg for target level > 2. Check PO4 level.
- IV insulin infusion - follow hourly fingerstick and adjust insulin / fluids as needed.
- Follow q4h BMP until anion gap is normalized.
- Supportive care, pain control, antiemetics, etc.
- Follow for clinical improvement.
- [employer]el Fleet [employer]ic evaluation while in ICU.
ADHD
Anxiety / Depression
- Hold amphetamines acutely.
- Continue sertraline and PRN trazodone.
GERD
Gastroparesis
- Continue daily PPI.
- Follow for ability to tolerate PO intake once anion gap normalized and diet resumed.
Hypothyroidism
- No T4 supplementation on current med list?
- Update TFTs.
[place]
- Some chronic elevation / abnormal LFTs.
- More prominent today likely due to acute illness / hypovolemia.
DVT Prophylaxis: Lovenox
Code Status: Full
[2025-02-20 22:37] LABS: Glucose - Point of Care 222 mg/dl (70-99)
[2025-02-20] MEDS: MAGNESIUM SULFATE 102 GRAMS IV (23:10)
[2025-02-20 23:14] VITALS: BP 166/110
[2025-02-20] MEDS: KCL 40 MEQ PO (23:31)
[2025-02-20] MEDS: D5/0.45%NSS with KCL 20 MEQ 1000 IV (23:31)
[2025-02-20 23:40] LABS: Glucose - Point of Care 182 mg/dl (70-99)
[2025-02-21] VITALS (44 sets, daily range): BP systolic 135–187; BP diastolic 94–121; BMI 20.2
[2025-02-21] MEDS: VANCOCIN 530 MG IV (00:29)
[2025-02-21] MEDS: TYLENOL 650 MG PO (00:29)
[2025-02-21] MEDS: ROCEPHIN 2000 MG IV (00:29)
[2025-02-21 00:35] LABS: Glucose - Point of Care 146 mg/dl (70-99)
[2025-02-21] MEDS: ZOFRAN 4 MG IV ×2 (00:42→11:07)
[2025-02-21 00:52] LABS: Urine Character Slightly Cloudy (Clear)
[2025-02-21 01:08] LABS: Blood Urea Nitrogen 21 mg/dl (7-17); Calcium 8.2 mg/dl (8.4-10.2); Carbon Dioxide 29 mmol/L (22-30); Chloride 98 mmol/L (98-107); Estimated Creatinine Clearance 85 ml/min; Glucose 154 mg/dl (70-99); Potassium 3.2 mmol/L (3.5-5.1); Sodium 139 mmol/L (135-145); eGFR > 60.00
[2025-02-21 01:18] LABS: Glucose - Point of Care 181 mg/dl (70-99)
[2025-02-21 01:32] LABS: Glucose - Point of Care 174 mg/dl (70-99)
[2025-02-21 02:17] LABS: Urine Squamous Cell >30 /LPF (Few)
[2025-02-21 02:19] LABS: Urine Red Blood Cell 0-2 /HPF (0-2)
[2025-02-21 02:20] LABS: Urine White Cell 26-30 /HPF (0-5)
[2025-02-21 02:43] LABS: Glucose - Point of Care 216 mg/dl (70-99)
[2025-02-21 03:37] LABS: Glucose - Point of Care 205 mg/dl (70-99)
[2025-02-21] MEDS: D5/0.45%NSS with KCL 20 MEQ 1000 IV (03:39)
[2025-02-21 04:23] LABS: Hematocrit 36.8 % (37.0-47.0); Hemoglobin 12.3 g/dL (12.0-16.0); Mean Corp Hgb Conc. 33.4 g/dL (33.0-37.0); Mean Corpuscular Volume 85.2 fL (81.0-99.0); Platelet Count 162 10^3/uL (130-400); Red Cell Dist. Width 16.7 % (11.5-14.5)
[2025-02-21 04:27] LABS: ALT (SGPT) 31 U/L (0-35); AST (SGOT) 87 U/L (14-36); Albumin 3.8 g/dl (3.5-5.0); Alkaline Phosphatase 150 U/L (38-126); Blood Urea Nitrogen 15 mg/dl (7-17); Calcium 7.7 mg/dl (8.4-10.2); Carbon Dioxide 24 mmol/L (22-30); Chloride 102 mmol/L (98-107); Estimated Creatinine Clearance 113 ml/min; Glucose 227 mg/dl (70-99); Potassium 3.7 mmol/L (3.5-5.1); Sodium 135 mmol/L (135-145); Total Protein 6.6 g/dl (6.3-8.2); eGFR > 60.00
[2025-02-21 04:29] LABS: B.E. 3.0 mmol/L; HCO3 27.1 mmol/L (21-28); O2 Saturation % 98.9 % (94-98); PCO2 39 mmHg (32-35); PO2 99 mmHg (83-108)
[2025-02-21 04:53] LABS: Glucose - Point of Care 175 mg/dl (70-99)
--- NOTE | 2025-02-21 05:24 | PTCARENOTE ---
Patient admitted to ICU this am. Patient aao x3, affect flat, able to make needs known. Confirms abd pain r/to vomiting over past few days. NSR on the monitor, positive pedal pulses, no edema noted. Lungs cta throughout, pox 97% on ra. BS active x4,
LBM 12/2, patient confirms usual bm every few days. Continent of bladder, instructed to use call wallace for assist to bsc when needed. Understanding verbalized. Skin intact. Patient has insulin pump to RLQ, unable to remove per patient, however pump
is turned off. Dexcom to LUE as well. IVF running to L ac as ordered, Insulin gtt currently at 2u/hr as last bg 175. Call wallace within reach, will continue to monitor patient closely.
[2025-02-21 06:05] LABS: Glucose - Point of Care 212 mg/dl (70-99)
[2025-02-21 06:30] LABS: APTT 29.8 Sec (23.4-35.0); INR 1.38; PT 16.7 Sec (11.4-14.6)
[2025-02-21 06:57] LABS: Magnesium 1.5 mg/dl (1.6-2.3)
[2025-02-21 07:11] LABS: Glucose - Point of Care 190 mg/dl (70-99)
--- NOTE | 2025-02-21 07:13 | W.PN.HOSP.TC ---
Addendum entered and electronically signed by Lisa Brennan MD 02/21/25 13:53:
I saw and evaluated the patient independently. I reviewed and discussed the resident�s note and agree with findings and plan as documented by Dr. Christie.
GENERAL: well developed, well nourished, female in no apparent distress
HEENT: NC/AT
HEART: regular rate and rhythm, +S1, +S2
LUNGS : clear to auscultation bilaterally
ABDOM: soft, nontender, nondistended, + bowel sounds
EXT: no cyanosis, clubbing, or edema
NEUROLOGIC: grossly intact
Mixed acid/base abnormality--doubt DKA but more likely starvation ketoacidosis PLUS contraction metabolic acidosis from n/v and GI losses--pt feels due to gastroparesis flare--no ill contacts at home--AGAP close--apprec DM PRODUCTION SHIFT SUPERVISOR transitioning pt back
to insulin pump--start diet--transfer out of ICU
Type 1 DM with Gastroparesis- f/u resolution of acute electrolyte abnormalities as above- will transition insulin per diabetic DISH TECHNICIAN recommendations- advance to diabetic diet
Electrolyte abnormalities--Hypokalemia/Hypomagnesemia/Hypophosphatemia/Hypocalcemia--due to above issues--replete
ADHD/Anxiety/Depression- Hold amphetamines acutely- Continue sertraline and PRN trazodone.
GERD - Continue daily PPI.- Follow for ability to tolerate PO intake once anion gap normalized and diet resumed.
Hypothyroidism- No T4 supplementation on current med list- TSH within normal limits- can be followed outpatient
MONTANO- Some chronic elevation / abnormal LFTs.- More prominent today likely due to acute illness / hypovolemia- Can monitor outpatient
* Please note that she reports a family history of lupus in mother, but she is not diagnosed with lupus.
code status--Full Code
DVT proph-- lovenox
Original Note:
Today's Communication/Plan
-
- replete electrolytes
- monitor BMP for anion gap
- f/u diabetic DISH TECHNICIAN recommendations
- transfer out of ICU
Assessment / Plan
Assessment / Plan
In summary, 39 yo F PMH DM-I, gastroparesis who presents with abdominal pain, nausea, vomiting for 3-4 days duration c/f starvation ketosis.
Mixed acid/base abnormality
Metabolic Alkalosis - Likely secondary to hypovolemia / GI losses
Starvation ketosis
- elevated anion gap, contraction metabolic alkalosis from GI HCl loss and fluid loss during vomiting
- BHB 8.88 indicates ketosis
- possible that she has a viral gastritis, decreased PO intake --> starvation ketosis
- pH and bicarbonate are not in the expected range for DKA, which suggests more starvation ketosis
- anion gap is currently closed
Plan:
- monitor BMP for two consecutive closed anion gaps
- f/u diabetes DISH TECHNICIAN for transitioning insulin
- replete electrolytes as below
- continue IV fluids
- transfer out of ICU
T1DM
Gastroparesis
- f/u resolution of acute electrolyte abnormalities as above
- will transition insulin per diabetic DISH TECHNICIAN recommendations
- advance to diabetic diet
Electrolyte abnormalities
Hypokalemia
Hypomagnesemia
Hypophosphatemia
Hypocalcemia
- Replete with KPhos riders
- Replete with Ca gluconate
- Replete with Mg IV
Chronic issues per below
ADHD
Anxiety / Depression
- Hold amphetamines acutely.
- Continue sertraline and PRN trazodone.
GERD
- Continue daily PPI.
- Follow for ability to tolerate PO intake once anion gap normalized and diet resumed.
Hypothyroidism
- No T4 supplementation on current med list
- TSH within normal limits
- can be followed outpatient
MONTANO
- Some chronic elevation / abnormal LFTs.
- More prominent today likely due to acute illness / hypovolemia.
- Can monitor outpatient
* Please note that she reports a family history of lupus in mother, but she is not diagnosed with lupus.
Full Code
Diet: diabetic
dvtppx: lovenox
Anticipated Discharge: 24 - 48 hours
Subjective/Interval History
-
Date of Service: February 21, 2025
39 yo F PMH T1DM c/b gastroparesis p/w weakness, abdominal pain, nausea and green vomiting. This began 2-3 days prior. She notes that she felt 'achy, possible cold sweats' but no cough. Her also felt 'achy and cold sweats' symptoms but no
other sick contacts. No other respiratory infectious symptoms.
Denies headache, no changes in vision, no chest pain. Denies dysuria, polyuria. No new food or recent travel.
Similar symptoms happened in September in the setting of insulin pump malfunction.
she adheres to her insulin regimen. No changes to it.
This morning, she feels a little better but her appetite is absent. She is still having generalized abdominal pain from the vomiting episodes.
PMH: GERD, MONTANO, ADHD;
FHx: chart says lupus but her mother has it, she does not
Social: occasional EtOH, former smoker (quit 2 years ago), denies rec drug use
Initial VS: HR 118, BP 162/104, afebrile
Initial labs:
Na+ 138
Cl 86
CO2 25
Cr 1.1
K 3.3
Glucose 194
Lipase 245
AST 151
ALT 47
Alkphos 254
BHB 8.88
Anion gap 27
VBG 7.52/35/102/28.6 midnight
ABG 7.45/39/99/27.1 today 4AM
UA positive for ketones
>30 squamous
NS bolus
was started on D5 - 1/2NSS + KCl fluids
insulin iv
Objective Data
-
Labs:
Laboratory Results
02/20/25 02/20/2502/20/25
19:28 21:15 23:15
WBC 19.9 H
Hgb 15.9
Hct 48.4 H
Plt Count 284
PT
INR
APTT
HCO3
Sodium 138 Cancelled Cancelled
Potassium 3.3 L Cancelled Cancelled
Chloride 86 L Cancelled Cancelled
Carbon Dioxide 25 Cancelled Cancelled
BUN 24 H Cancelled Cancelled
Creatinine 1.1 H Cancelled Cancelled
Glucose 194 H Cancelled Cancelled
Calcium 10.6 H Cancelled Cancelled
Total Bilirubin 1.3
AST 151 H
ALT 47 H
Alkaline Phosphatase 254 H
02/21/25 02/21/25 02/21/25
00:35 03:47 04:21
WBC 13.5 H
Hgb 12.3 D
Hct 36.8 L
Plt Count 162 D
PT
INR
APTT
HCO3 27.1
Sodium 139 135
Potassium 3.2 L 3.7
Chloride 98 102
Carbon Dioxide 29 24
BUN 21 H 15
Creatinine 0.8 0.6
Glucose 154 H 227 H
Calcium 8.2 L D 7.7 L
Total Bilirubin 0.5
AST 87 H
ALT 31
Alkaline Phosphatase 150 H
02/21/25 02/21/25 02/21/25
06:04 10:00 14:00
WBC
Hgb
Hct
Plt Count
PT 16.7 H
INR 1.38
APTT 29.8
HCO3
Sodium Pending Pending
Potassium Pending Pending
Chloride Pending Pending
Carbon Dioxide Pending Pending
BUN Pending Pending
Creatinine Pending Pending
Glucose Pending Pending
Calcium Pending Pending
Total Bilirubin
AST
ALT
Alkaline Phosphatase
02/21/25 02/21/25
18:00 22:00
WBC
Hgb
Hct
Plt Count
PT
INR
APTT
HCO3
Sodium Pending Pending
Potassium Pending Pending
Chloride Pending Pending
Carbon Dioxide Pending Pending
BUN Pending Pending
Creatinine Pending Pending
Glucose Pending Pending
Calcium Pending Pending
Total Bilirubin
AST
ALT
Alkaline Phosphatase
Na 135
K 3.7
Cl 102
CO2 24
Cfr 0.6
Glucose 227
A1c pending
TSH 2.23
WBC down to 13.5
VBG 7.52/35/102/28.6
ABG 7.45/39/99/27.1
Vital Signs:
Vital Signs
Temp Pulse Resp BP Pulse Ox
98.5 F 98 17 160/105 98
02/21/25 05:38 02/21/25 06:30 02/21/25 06:30 02/21/25 06:15 02/21/25 06:48
tachcyaridc during my interveiw
Review of Systems
-
History Source: Patient
Constitutional: Reports Fatigue
EENT: Reports No Symptoms Reported
Respiratory: Reports No Symptoms
Cardiac: Reports No Symptoms
Abdomen/GI: Reports Abdominal Pain, Nausea and Vomiting
Genitourinary: Reports No Symptoms
Musculoskeletal: Reports No Symptoms
Neuro: Reports No Symptoms
Physical Exam
-
General: Conversant
HEENT: Normocephalic
Respiratory: Clear to Auscultation
Cardiac: Tachycardic and Other (no murmurs on my exam)
GI: Tender (generalized )
Genito-urinary: No Costovertebral Tender
Musculoskeletal: No Edema
Neuro: AO x 3, No Motor Deficits and Nonfocal/Grossly Intact
Psych: Calm
--- NOTE | 2025-02-21 07:23 | CON.INTV ---
Addendum entered and electronically signed by Lisette Ortiz DO 02/21/25 08:53:
UA with reflex culture pending, she does not endorse any UTI complaints
WBC likely from vomiting-dehydration
Stop CTX, await urine culture final
Original Note:
Consultation
Consultation Request
Date/Time Consultation Requested: 02/21/25
Date/Time Consultation Performed: 02/21/25
Performing Provider: Diana
Reason for Consultation: DKA
Medical History
-
History of Present Illness:
39-year-old female with previous history of diabetes type 1, gastroparesis presenting to ER for abdominal pain and profuse nausea vomiting. Started with abdominal pain on Tuesday prior to admission, developed nausea vomiting the following day
with multiple episodes of emesis. She has also complains of generalized weakness and fatigue, ate too much over the holiday weekend. She has had previous multiple admissions for DKA in the past. Recently admitted and discharged in September for
similar. Admitted to ICU for insulin drip.
Past Medical History
Past Medical History: Other (see list below)
Social History
Tobacco: Non-smoker
Alcohol: None
Drug: None
Family History
Family History: Reviewed & Not Pertinent
Allergies / Home Medications
Allergies
Allergy/AdvReac Type Severity Reaction Status Date / Time
No Known Allergies Allergy Verified 02/20/25 19:06
Home Medications
�Medication �Instructions �Recorded �Confirmed �Last Taken �Type
sertraline 100 mg tablet 100 mg PO HS Mental Health/Anxiety 01/17/23 02/20/25 02/19/25 History
dextroamphetamine-amphetamine 15 15 mg PO TID Mental Health/Anxiety 07/22/23 02/20/25 02/19/25 History
mg tablet
Patient Own Insulin Pump 1 sliding scale dose SC .VIA 10/06/24 02/20/25 10/06/24 History
HUMALOG
pantoprazole 20 mg tablet,delayed 20 mg PO DAILY 10/06/24 02/20/25 02/19/25 History
release (Protonix)
trazodone 150 mg tablet 150 mg PO HSPRN PRN SLEEP 10/06/24 02/20/25 Unknown History
Review of Systems
-
History Source: Patient
All other systems: Negative unless noted
Vitals / Labs / Diagnostic Testing
Vital Signs
Temp Pulse Resp BP Pulse Ox
98.5 F 98 17 160/105 98
02/21/25 05:38 02/21/25 06:30 02/21/25 06:30 02/21/25 06:15 02/21/25 06:48
Lab Data
02/21/25 03:47
Laboratory Results
02/21/25 02/21/25
04:21 06:04
PT 16.7 H
INR 1.38
APTT 29.8
pH 7.45
pCO2 39 H
pO2 99
HCO3 27.1
O2 Delivery Level
Diagnostic Testing:
Physical Exam
-
HEENT: Normocephalic, Anicteric and Moist Mucous Membranes
Cardiovascular: S1/S2 and Regular Rhythm
Respiratory: Clear and Non-Labored Respirations
GI: Soft, Non Distended and Non Tender
Neurology: Awake, Alert, Oriented and No Motor Deficits
Skin: Warm, Dry and Good Color
General: Comfortable and Other (NAD)
Assessment
-
39-year-old female with previous history of diabetes type 1, gastroparesis presenting to ER for abdominal pain and profuse nausea vomiting. Started with abdominal pain on Tuesday prior to admission, developed nausea vomiting the following day
with multiple episodes of emesis. She has also complains of generalized weakness and fatigue, ate too much over the holiday weekend. She has had previous multiple admissions for DKA in the past. Recently admitted and discharged in September for
similar. Admitted to ICU for insulin drip.
Hyperglycemia
Hypokalemia
Noncompliance
Nausea/vomiting
Metabolic alkalosis
Mild transaminitis
Conditions present prior to admission
Lupus
Hepatic steatosis/MONTANO
DM-I
Peripheral Neuropathy
Gastroparesis
Depression
Vitamin D deficiency
Folate deficiency anemia
Hypothyroidism
Hypertension
History of heart failure
Right femoral neck status post screw fixation
Plan
Did not meet criteria for DKA, admitting BS elevated but AG not elevated
Started on insulin drip, can wean today back to pump
Consult diabetic nurse for insulin recommendations
Can restart diet, she has ongoing nausea
Antinausea meds PRN
IVFs
Diet noncompliance, gastroparesis history--known to GI service
02/2022 EGD bohning normal esophagus, eythema in stomach, normal duodenum
02/2022 colonoscopy-bohning 5 mm polyp in AC, IH, otherwise normal
Ongoing abd pain, asking for narcotics but this will worsen her bowel function I cautioned
Can continue extra strength Tylenol for now
Resumed on her home PPI
Hemodynamically stable, not requiring pressors.
No prior h/o cardiac disease
Oxygen needs: Stable on RA
No prior h/o pulmonary disease
CXR clear on admission
Creat at baseline, follow UO
No signs/symptoms suspicious for infectious etiology at this time.
Will observe off antibiotics for now.
Follow fever trend, WBC count.
DVT ppx SCDs
Can transfer to floors, we will sign off upon transfer.
Diagnostic Data
Chest X-Ray: 10/06/24-No acute cardiopulmonary process.
CT Scan: AP 10/11/24- 1. Severe diffuse fatty infiltration of the liver, with geographic areas of fatty sparing. Findings are similar compared to prior CT dated 12/13/2021, and consistent with the provided history of MONTANO.
2. No evidence of intestinal obstruction or bowel inflammatory process.
CHEST 03/12/22- No evidence of central pulmonary embolism. Findings suggesting some thickening of the wall of the mid to distal thoracic esophagus. Inflammatory/infectious process or less likely malignancy possible. Clinical correlation recommended
as to any difficulty swallowing.
Echo: 12/31/21- LV ejection fraction is 50-55% by Bobo's method of discs. Possible mid inferolateral wall hypokinesis. Mild concentric left ventricular hypertrophy. Mild to moderate mitral regurgitation. Estimated PASP 45-50 mmHg and RA of 8
mmHg. No prior study available for comparison.
PFT's:
Reports and relevant images were personally reviewed.
Critical Care time 50 mins -- The patient is admitted for acute critical illness for the treatment of vital organ failure and/or prevention of further life-threatening conditions. Total care includes time spent in review of history, physical exam,
medications, hemodynamic/ventilator parameters, laboratory data, imaging and discussion with house staff, pharmacy, respiratory therapy, platform mill supervisor, and nursing.
[2025-02-21 08:01] LABS: Glucose - Point of Care 124 mg/dl (70-99)
[2025-02-21] MEDS: PROTONIX IV 40 MG IV (08:58)
[2025-02-21] MEDS: NSS (PRESERVATIVE FREE) 10 ML IV (08:59)
[2025-02-21] MEDS: D5/0.45%NSS with KCL 20 MEQ IV (08:59)
[2025-02-21 09:13] LABS: Glycohemoglobin (HgbA1c) 6.3 % (4.0-5.9)
[2025-02-21] MEDS: NSS 1000 IV ×2 (09:18→18:58)
[2025-02-21] MEDS: PT'S OWN INSULIN PUMP - HumaLOG SC (10:40)
[2025-02-21 10:47] LABS: Glucose - Point of Care 114 mg/dl (70-99)
[2025-02-21] MEDS: PATIENT'S OWN INSULIN PUMP 1.15 UNITS SC (10:56)
[2025-02-21] MEDS: TYLENOL 1000 MG PO ×2 (11:02→17:16)
--- NOTE | 2025-02-21 11:18 | PTCARENOTE ---
Complete assessment done and documented. Pt follows commands, resting in bed. HR SR, BP running elevated, Amanda Smith and Dr Brennan aware. No change in treatment at this time. PT was on Reg insulin drip, accu checks q 1 hr. Pt seen by María
R[place], Pt's own humalog insulin drip was turned on approx 0930, then reg insulin drip to off 1 hr later. IV D5 1/2 ns + 20 meq KCL at 200 ml/hr changed to NS at 100 ml/hr. Pt on R/A, lobes clear. Pt NPO this morning, but to be changed to an ADA
diet. Pt assisted to bathroom, stable on feet. AM care and mouth care done. Pt cleared to go to tele room when available.
--- NOTE | 2025-02-21 11:22 | PN.DE.MGMTRT ---
Insulin Management
- -
02/20/2025 Diabetes Management Consult
39 year old patient admitted 02/20 with intractable vomiting, nausea and abdominal pain, found to be in DKA. Glucose 194 on admission, Bhydroxybutyrate 8.88. PMH type 1 diabetes, gastroparesis, HTN, MONTANO, anxiety, depression, lupus, ADHD, HCL.
Prior to admission was using OmniPod with Humalog insulin and DexCom G6. A1C on admission 6.3%.
Patient is awake alert and oriented. Has had type 1 diabetes since age 12. Did state she is followed by [facility].
02/21 Currently on DKA protocol receiving 3 units of insulin per hour. Newsroom Intern has ordered stop drip, pump to be restarted. Patients OmniPod restarted, DexCom G6 in place. Insulin infusion to be stopped 1 hour after pump started.
Pump settings:
Basal 1.15 for 24 hours 24 hour basal total 27.6
Carb ratio 1:7.5 for 24 hours
Correction 1:30 for 24 hours
Active insulin 3 hours.
Discussed with nurse
Will follow
Diabetes History
- -
Type of Diabetes: 1
Pre-Admission Diabetes Regimen
02/20/25 02/20/25 02/20/25
19:28 21:15 23:15
Creatinine 1.1 H Cancelled Cancelled
02/21/25 02/21/25
00:35 03:47
Creatinine 0.8 0.6
Lab Results
Hemoglobin A1c 6.3 % (4.0-5.9) H 02/20/25 23:20
Insulin Pump Settings
IP Diabetes Regimen
02/20/25 02/20/25 02/20/25
19:28 21:15 21:22
Glucose 194 H Cancelled
POC Glucose 222 H
02/20/25 02/20/25 02/20/25
22:36 23:15 23:38
Glucose Cancelled
POC Glucose 222 H 182 H
02/21/25 02/21/25 02/21/25
00:34 00:35 01:17
Glucose 154 H
POC Glucose 146 H 181 H
02/21/25 02/21/25 02/21/25
01:30 02:41 03:35
Glucose
POC Glucose 174 H 216 H 205 H
02/21/25 02/21/25 02/21/25
03:47 04:51 06:03
Glucose 227 H
POC Glucose 175 H 212 H
02/21/25 02/21/25 02/21/25
07:10 08:00 10:45
Glucose
POC Glucose 190 H 124 H 114 H
Meal type: Breakfast
Patient Education
--- NOTE | 2025-02-21 11:48 | CM ---
Initial assessment completed with patient who lives with her and 16 y/o daughter and 11 y/o son in a 4 story split level home with B/B on 3rd floor, 4 steps to enter. 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 Has a glucometer. No in-home services. No HC-POA. No VA benefits. No psychiatric hospitalizations. PCP is [facility]. Pharmacy is [facility] in [place]. Discharge POC: Anticipate home with no needs.
[2025-02-21 11:56] LABS: Glucose - Point of Care 181 mg/dl (70-99)
[2025-02-21] MEDS: PT'S OWN INSULIN PUMP - HumaLOG 2.8 UNIT SC (12:26)
[2025-02-21] MEDS: MAGNESIUM SULFATE 100 IV (12:32)
[2025-02-21] MEDS: CALCIUM GLUCONATE 130 MG IV (12:38)
[2025-02-21] MEDS: POTASSIUM PHOSPHATE 254.5455 MEQ IV (12:43)
--- NOTE | 2025-02-21 12:51 | PTCARENOTE ---
20 mg kcl/ 250 ml hung over 4 hrs, 3000 mg CaGlu/ 100 hung over 1 hr, and 4 gm Mg Sul/100 hung over 4 hrs started, all in different ints, cleared by pharm. Pt resting in bed, no complaints, feeling 'better' overall. Call wallace at side.
[2025-02-21 13:15] LABS: Blood Urea Nitrogen 10 mg/dl (7-17); Calcium 7.5 mg/dl (8.4-10.2); Carbon Dioxide 26 mmol/L (22-30); Chloride 100 mmol/L (98-107); Estimated Creatinine Clearance 119 ml/min; Glucose 182 mg/dl (70-99); Potassium 3.6 mmol/L (3.5-5.1); Sodium 132 mmol/L (135-145); eGFR > 60.00
[2025-02-21] MEDS: APRESOLINE 5 MG IV ×2 (17:16→21:35)
[2025-02-21] MEDS: ZESTRIL 5 MG PO (17:16)
[2025-02-21] MEDS: LOVENOX 40 MG SC (17:17)
[2025-02-21 18:52] LABS: Glucose - Point of Care 155 mg/dl (70-99)
[2025-02-21] MEDS: PT'S OWN INSULIN PUMP - HumaLOG 1.15 UNIT SC (18:52)
--- NOTE | 2025-02-21 20:00 | PTCARENOTE ---
Assumed care of patient. Resting comfortably in bed, aox2, moves independently. NSR on monitor, pulses palpable, no edema. Lungs are clear on room air. Abdomen is soft, non-tender. Patient has poor appetite, on maintenance fluids. Continent to both
bowel and bladder. Skin intact. IV sites are c/d/i.
[2025-02-21] MEDS: MELATONIN 5 MG PO (21:30)
[2025-02-21] MEDS: ZOLOFT 100 MG PO (21:30)
[2025-02-21] MEDS: PT'S OWN INSULIN PUMP - HumaLOG 0.1 UNIT SC (21:31)
[2025-02-21 21:33] LABS: Glucose - Point of Care 155 mg/dl (70-99)
--- NOTE | 2025-02-21 21:52 | PTCARENOTE ---
Patient complaining of headache. Blood pressure checked: 160/115. PRN hydralazine given, patient in agreement that this is likely cause of headache. Recheck of blood pressure 140/94.
[2025-02-22] VITALS: BP 127/78
[2025-02-22] MEDS: ZOFRAN 4 MG IV (01:53)
[2025-02-22] MEDS: TYLENOL 1000 MG PO (01:53)
[2025-02-22 02:10] LABS: Hematocrit 39.4 % (37.0-47.0); Hemoglobin 12.9 g/dL (12.0-16.0); Mean Corp Hgb Conc. 32.7 g/dL (33.0-37.0); Mean Corpuscular Volume 86.4 fL (81.0-99.0); Platelet Count 166 10^3/uL (130-400); Red Cell Dist. Width 17.2 % (11.5-14.5)
--- NOTE | 2025-02-22 02:16 | PTCARENOTE ---
Patient complaining of mild headache, Tylenol given see MAR. Mac also given for nausea.
[2025-02-22 02:43] LABS: ALT (SGPT) 30 U/L (0-35); AST (SGOT) 76 U/L (14-36); Albumin 4.0 g/dl (3.5-5.0); Alkaline Phosphatase 155 U/L (38-126); Blood Urea Nitrogen 5 mg/dl (7-17); Calcium 8.4 mg/dl (8.4-10.2); Carbon Dioxide 29 mmol/L (22-30); Chloride 98 mmol/L (98-107); Estimated Creatinine Clearance 119 ml/min; Glucose 146 mg/dl (70-99); Magnesium 2.0 mg/dl (1.6-2.3); Potassium 3.5 mmol/L (3.5-5.1); Sodium 134 mmol/L (135-145); Total Protein 6.9 g/dl (6.3-8.2); eGFR > 60.00
[2025-02-22 04:00] VITALS: BP 134/101
[2025-02-22] MEDS: NSS 1000 IV (05:54)
[2025-02-22 06:00] VITALS: BMI 20.3
--- NOTE | 2025-02-22 07:14 | W.PN.HOSP.TC ---
Addendum entered and electronically signed by Lisa Brennan MD 02/22/25 17:11:
Patient left the hospital prior to me seeing her on the day of discharge. Dr. Christie did in fact see the patient.
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
to insulin pump--tolerating diet
Type 1 DM with Gastroparesis- f/u resolution of acute electrolyte abnormalities as above- will transition insulin per diabetic ASSISTANT GOLF COURSE SUPERINTENDENT recommendations--advance to diabetic diet
Electrolyte abnormalities--Hypokalemia/Hypomagnesemia/Hypophosphatemia/Hypocalcemia--due to above issues--replete
ADHD/Anxiety/Depression- Hold amphetamines acutely- Continue sertraline and PRN trazodone.
GERD - Continue daily PPI.- Follow for ability to tolerate PO intake once anion gap normalized and diet resumed.
Hypothyroidism- No T4 supplementation on current med list- TSH within normal limits- can be followed outpatient
MONTANO- Some chronic elevation / abnormal LFTs.- More prominent today likely due to acute illness / hypovolemia- Can monitor outpatient
* Please note that she reports a family history of lupus in mother, but she is not diagnosed with lupus.
code status--Full Code
DVT proph-- lovenox
Original Note:
Today's Communication/Plan
-
discharge today
new med lisinopril
Assessment / Plan
Assessment / Plan
In summary, 39 yo F PMH DM-I, gastroparesis who presents with abdominal pain, nausea, vomiting for 3-4 days duration c/f starvation ketosis.
Mixed acid/base abnormality
Metabolic Alkalosis - Likely secondary to hypovolemia / GI losses
Starvation ketosis
- elevated anion gap, contraction metabolic alkalosis from GI HCl loss and fluid loss during vomiting
- BHB 8.88 indicates ketosis
- possible that she has a viral gastritis, decreased PO intake --> starvation ketosis
- pH and bicarbonate are not in the expected range for DKA, which suggests more starvation ketosis
- anion gap is currently closed
Plan:
- on home insulin pump
- tolerating diet
- discharge today
T1DM
Gastroparesis
- home insulin regimen
- diabetic diet
Likely essential HTN
- elevated BP noted this admission and on chart review, on prior admissions to SBP in 180s
- started on lisinopril 5mg PO daily on 02/21, for HTN and renoprotection given T1DM
- advised patient to follow-up outpatient
Electrolyte abnormalities - resolved
Hypokalemia
Hypomagnesemia
Hypophosphatemia
Hypocalcemia
- electrolytes are within normal limits
Chronic issues per below
ADHD
Anxiety / Depression
- Hold amphetamines acutely.
- Continue sertraline and PRN trazodone.
GERD
- Continue daily PPI.
- Follow for ability to tolerate PO intake once anion gap normalized and diet resumed.
Hypothyroidism
- No T4 supplementation on current med list
- TSH within normal limits
- can be followed outpatient
MONTANO
- Some chronic elevation / abnormal LFTs.
- More prominent today likely due to acute illness / hypovolemia.
- Can monitor outpatient
* Please note that she reports a family history of lupus in mother, but she is not diagnosed with lupus.
Full Code
Diet: diabetic
dvtppx: lovenox
Anticipated Discharge: Today
Subjective/Interval History
-
Date of Service: February 22, 2025
feels good wants to go home, denies any PT needs to me.
on her home insulin regimen
Objective Data
-
Labs:
Laboratory Results
02/22/25
02:03
WBC 11.1 H
Hgb 12.9
Hct 39.4
Plt Count 166
Sodium 134 L
Potassium 3.5
Chloride 98
Carbon Dioxide 29
BUN 5 L
Creatinine 0.5 L
Glucose 146 H
Calcium 8.4
Total Bilirubin 0.9
AST 76 H
ALT 30
Alkaline Phosphatase 155 H
anion gap 7
Phos 2.9
Mg 2.0
Ca 8.4
Vital Signs:
Vital Signs
Temp Pulse Resp BP Pulse Ox
98.8 F 84 17 127/78 99
02/21/25 20:00 02/22/25 01:00 02/22/25 01:00 02/22/25 00:00 02/22/25 01:00
BP 130s-140s systolic/80-90s
I&O
02/21/25 02/22/25 02/23/25
06:59 06:59 06:59
Intake Total 2304 / 2304
Output Total 300 / 300
Balance 2003
Review of Systems
-
History Source: Patient
Constitutional: Reports Other (headaches improved)
EENT: Reports No Symptoms Reported
Respiratory: Reports No Symptoms
Cardiac: Reports No Symptoms
Abdomen/GI: Reports Abdominal Pain (improved)
Genitourinary: Reports No Symptoms
Musculoskeletal: Reports No Symptoms
Neuro: Reports No Symptoms
Physical Exam
-
General: Conversant
HEENT: Normocephalic
Respiratory: Clear to Auscultation
Cardiac: Other (no murmurs on my exam)
GI: Soft and Nontender
Musculoskeletal: No Edema
Neuro: No Motor Deficits and Nonfocal/Grossly Intact
Psych: Calm
[2025-02-22 07:33] VITALS: BP 142/100
[2025-02-22 08:00] VITALS: BP 158/105
[2025-02-22] MEDS: PT'S OWN INSULIN PUMP - HumaLOG SC (08:09)
[2025-02-22 08:12] LABS: Glucose - Point of Care 152 mg/dl (70-99)
[2025-02-22] MEDS: PROTONIX 40 MG PO (08:15)
--- NOTE | 2025-02-22 08:33 | PN.DE.MGMTRT ---
Insulin Management
- -
02/22/2025: Diabetes Management Follow up
39 year old patient admitted 02/20 with intractable vomiting, nausea and abdominal pain, found to be in DKA. Glucose 194 on admission, Bhydroxybutyrate 8.88. PMH: T1DM, Gastroparesis, HTN, MONTANO, Anxiety, Depression, Lupus, ADHD, HCL. Prior to
admission was using OmniPod with Humalog insulin and DexCom G6.
A1C on admission 6.3%. States she has had type 1 diabetes since age 12. Did state she is followed by [facility].
Patient is awake alert and oriented, resting in bed, offers no complaints, able to discuss diabetes care plan.
Patient transitioned off insulin infusion to her OmniPod and DexCom G6 yesterday. Glucose stable, 114 to 181
Pump settings:
Basal 1.15 for 24 hours 24 hour basal total 27.6
Carb ratio 1:7.5 for 24 hours
Correction 1:30 for 24 hours
Active insulin 3 hours.
Will make no changes to pump settings. Discussed with nurse. Will cont to follow
Diabetes History
- -
Type of Diabetes: 1
Pre-Admission Diabetes Regimen
02/21/25 02/21/25 02/21/25
12:15 14:00 18:00
Creatinine 0.5 L Cancelled Cancelled
02/21/25 02/22/25
22:00 02:03
Creatinine Cancelled 0.5 L
Lab Results
Hemoglobin A1c 6.3 % (4.0-5.9) H 02/20/25 23:20
Insulin Pump Settings
IP Diabetes Regimen
02/21/25 02/21/25 02/21/25
10:45 11:55 12:15
Glucose 182 H
POC Glucose 114 H 181 H
02/21/25 02/21/25 02/21/25
14:00 18:00 18:50
Glucose Cancelled Cancelled
POC Glucose 155 H
02/21/25 02/21/25 02/22/25
21:32 22:00 02:03
Glucose Cancelled 146 H
POC Glucose 155 H
02/22/25
08:06
Glucose
POC Glucose 152 H
Meal type: Breakfast
Patient Education
--- NOTE | 2025-02-22 10:37 | W.DCSUMMARY ---
Addendum entered and electronically signed by Lisa Brennan MD 02/22/25 17:13:
Read, reviewed, and agree. See same day progress note for additional details. Time spent coordinating care, DC planning, review of DC plan of care with resident, transition of care, review of records in EMR, med rec, consults, notes, d/w
consultants, nursing, family, and CM = 28 minutes
Original Note:
Discharge Summary
Discharge Data
Date of Admission: 02/20/25
Date of Discharge: 02/22/25
-
Pending Results: No
Hospital Course
Discharging Physician : Dr. Lisa Brennan; Dr. Arturo Christie
Disposition : Home
Primary care physician : Lisa Jose
Principal Discharge diagnosis : Mixed acid/base disorder, starvation ketosis, T1DM, gastroparesis, electrolyte abnormalities (Phosphorus, Magnesium, Calcium)
Chronic Discharge diagnosis : ADHD, anxiety, GERD, MONTANO
Hospital Course :
39 yo F PMH T1DM c/b gastroparesis p/w weakness, abdominal pain, nausea and green vomiting found to have mixed acid/base abnormalities and most likely starvation ketosis in the setting of likely viral gastritis and decreased PO intake for several
days. Although her anion gap was elevated, her presentation is not consistent with DKA. During the course of her admission, she was able to readily transition of IV insulin and resume her home insulin pump regimen. However, it was noted that her
blood pressures, including in prior admissions, were elevated. Hence, lisinopril was started as a new medication, and the patient was counselled to follow-up with her PCP.
* Please note that she reports a family history of lupus in mother, but she is not diagnosed with lupus.
The following problems were addressed during this admission.
Mixed acid/base abnormality
Metabolic Alkalosis - Likely secondary to hypovolemia / GI losses
Starvation ketosis
- elevated anion gap, contraction metabolic alkalosis from GI HCl loss and fluid loss during vomiting
- BHB 8.88 indicates ketosis
- possible that she has a viral gastritis, decreased PO intake --> starvation ketosis
- pH and bicarbonate are not in the expected range for DKA, which suggests more starvation ketosis
- anion gap is currently closed
Plan:
- on home insulin pump
- tolerating diet
- discharge today
T1DM
Gastroparesis
- home insulin regimen
Likely essential HTN
- elevated BP noted this admission and on chart review, on prior admissions to SBP in 180s
- started on lisinopril 5mg PO daily on 02/21, for HTN and renoprotection given T1DM
- advised patient to follow-up outpatient
Electrolyte abnormalities - resolved
Hypokalemia
Hypomagnesemia
Hypophosphatemia
Hypocalcemia
- electrolytes are within normal limits
Chronic issues per below
ADHD
Anxiety / Depression
- Hold amphetamines acutely.
- Continue sertraline and PRN trazodone.
GERD
- Continue daily PPI.
- Follow for ability to tolerate PO intake once anion gap normalized and diet resumed.
Hypothyroidism
- No T4 supplementation on current med list
- TSH within normal limits
- can be followed outpatient
MONTANO
- Some chronic elevation / abnormal LFTs.
- More prominent today likely due to acute illness / hypovolemia.
- Can monitor outpatient
Important imaging findings :
CXR 02/21/2025
IMPRESSION: No acute pulmonary process.
Discharge Plan
-
Patient Disposition: Home (Routine Discharge)
Discharge Diagnosis/Procedures: Mixed acid/base disorder, starvation ketosis, T1DM, gastroparesis, electrolyte abnormalities (Phosphorus, Magnesium, Calcium), ADHD, anxiety, GERD, MONTANO
Condition: Fair
Diet: Diabetic, Carb Controlled
Activity: As tolerated
Driving Restrictions: As prior to admission
Bathing Restrictions: None
Referrals:
Lisa Jose CRNP [Family Provider, Internal Medicine]
Additional Discharge Medication Instructions: Please start lisinopril 5mg by mouth once a day. You were found to have elevated BP while admitted. You were started on nighttime dosing but you may take it once a day at any time as long as you are
consistent.
Please follow-up with your PCP in 1 week to further discuss your blood pressure and T1DM.
You should continue your home insulin pump.
You may continue your other medications as below.
Your TSH was normal but you can follow-up outpatient for further thyroid function testing.
Prescriptions:
New
lisinopril 5 mg Tablet
5 mg PO QPM Qty: 30 0RF
Continued
sertraline 100 mg tablet
100 mg PO HS
dextroamphetamine-amphetamine 15 mg Tablet
15 mg PO TID
pantoprazole [Protonix] 20 mg Tablet,Delayed Release (Dr/Ec)
20 mg PO DAILY
trazodone 150 mg Tablet
150 mg PO HSPRN PRN (Reason: SLEEP)
Patient Own Insulin Pump
1 sliding scale dose SC .VIA HUMALOG
Discharge Orders:
Discharge Patient (As Directed); Ordered 02/22/25
Ordered By: Arturo Christie
Discharge Date and Time
Discharge Date/Time: 02/22/25 11:15
Print Language: FAROESE
[2025-02-22 10:57] VITALS: BP 166/97
--- NOTE | 2025-02-22 11:16 | PTCARENOTE ---
Pt discharged to home with . Reviewed all discharged instructions and home meds with pt. IVs removed Pt took all belongings from room.
--- NOTE | 2025-02-22 17:23 | CM ---
Patient seen at bedside and no needs for discharge at this time. CM will continue to follow for discharge planning needs.
Plan; home with no needs
== END 2025-02-22 11:15 | disposition home or self-care (01) | DRG 74 ==
LOC: ICU 22:37
PROVIDERS: Emergency Medicine; Nurse Practitioner Family; ADMITTING PHYSICIAN Hospitalist; ATTENDING PHYSICIAN Internal Medicine; EMERGENCY PHYSICIAN Emergency Medicine; FAMILY PHYSICIAN Nurse Practitioner Adult Health; OTHER PHYSICIAN Internal Medicine
DX: E10.43 Type 1 diabetes mellitus with diabetic autonomic (poly)neuropathy (principal); E87.4 Mixed disorder of acid-base balance; E87.3 Alkalosis; Z79.4 Long term (current) use of insulin; E10.10 Type 1 diabetes mellitus with ketoacidosis without coma; K31.84 Gastroparesis; I11.0 Hypertensive heart disease with heart failure; F17.200 Nicotine dependence, unspecified, uncomplicated; F90.9 Attention-deficit hyperactivity disorder, unspecified type; F32.A Depression, unspecified; F41.9 Anxiety disorder, unspecified; K21.9 Gastro-esophageal reflux disease without esophagitis; E03.9 Hypothyroidism, unspecified; E87.6 Hypokalemia; E83.42 Hypomagnesemia; E86.1 Hypovolemia; E83.39 Other disorders of phosphorus metabolism; E83.51 Hypocalcemia
CPT/HCPCS: 71045; 80048; 80053; 81003; 81015; 82010; 82248; 82805; 82962; 83036; 83690; 83735; 84100; 84443; 84484; 84703; 85025; 85027; 85610; 85730; 87040; 87077; 87086; 87147; 93005; 96365; 96366; 96375; 99285